=== PATIENT | female | born 1970 | race Caucasian/White ===

== ENCOUNTER 2020-01-02 15:00 | Outpatient (RCR) | payer OTHER, SELFPAY ==
--- NOTE | 2020-01-02 16:02 | MHC.PT.DC ---
[facility] [place] Office [place] Office [place] Office [address]ujo [address] [phone] F: [phone] F: [phone] F: [phone] F: [phone] Physical Therapy Discharge Report Diagnosis: Post traumatic OA of R knee, OA of L knee Date of Surgery: NA Date of Evaluation: 11/09/19 Date of Discharge: 01/02/20 Treatments to Date: 13 Cancellations to Date: 0 No Shows to Date: 0 Discharge Status: Achieved Goals Improved Function Independent with HEP Discharge Summary: Patient sylvia Hackett in HEP. She reports crepitus with some exercises but tolerates program well. She has normal MMT and ROM to about 114 degs on the L and 125 on the R. She has reached a point where no more progress is being made due to limitations of bony alignment and lack of cartilage. She has a good HEP to continue in the mean time and educated her on the importance of maintaining ROM and strength. DC to HEP at this time. Electronically signed by: Patricia Lopez PT Please sign and return to therapist. Thank you for your referral.
== END 2020-01-02 16:03 | disposition home or self-care (01) ==
LOC: HO.PTCHIC 15:00
PROVIDERS: Visit Provider Orthopaedic Surgery
DX: M17.31 Unilateral post-traumatic osteoarthritis, right knee (principal); M17.12 Unilateral primary osteoarthritis, left knee
CPT/HCPCS: 97110

== ENCOUNTER → 2020-01-23 12:32 | Outpatient (BNVA) | payer OTHER, SELFPAY | PROVIDERS: Visit Provider Orthopaedic Surgery | DX: Z76.89 Persons encountering health services in other specified circumstances (principal) ==

== ENCOUNTER 2020-02-06 15:00 | Outpatient (REF) | payer OTHER, SELFPAY ==
--- NOTE | 2020-02-06 15:01 | XR_ITS ---
EXAMINATION: BILATERAL KNEE X-RAY CLINICAL INFORMATION: Bilateral knee pain COMPARISON: Previous x-ray August 2018 TECHNIQUE: 3 views of each knee FINDINGS: Right: There is mild medial subluxation of the distal femur with respect to the proximal tibia measuring 7 mm. This is unchanged. Bone alignment is otherwise normal. No fracture or dislocation is seen. There is arthritis at the medial femoral tibial and patellofemoral joints with joint space narrowing and osteophyte formation. There are 2 lucencies seen on the lateral view in the tibial metaphysis questionable for postsurgical change. There is a small joint effusion. Left: Bone alignment is normal. No fracture or dislocation. There is arthritis at the patellofemoral and femoral tibial joints with joint space narrowing and osteophyte formation. There is a small joint effusion. XR/XR knee RT 2V IMPRESSION: Bilateral arthritis, right greater than left.
--- NOTE | 2020-02-06 15:01 | XR_ITS ---
EXAMINATION: BILATERAL KNEE X-RAY CLINICAL INFORMATION: Bilateral knee pain COMPARISON: Previous x-ray August 2018 TECHNIQUE: 3 views of each knee FINDINGS: Right: There is mild medial subluxation of the distal femur with respect to the proximal tibia measuring 7 mm. This is unchanged. Bone alignment is otherwise normal. No fracture or dislocation is seen. There is arthritis at the medial femoral tibial and patellofemoral joints with joint space narrowing and osteophyte formation. There are 2 lucencies seen on the lateral view in the tibial metaphysis questionable for postsurgical change. There is a small joint effusion. Left: Bone alignment is normal. No fracture or dislocation. There is arthritis at the patellofemoral and femoral tibial joints with joint space narrowing and osteophyte formation. There is a small joint effusion. XR/XR knee standing BI IMPRESSION: Bilateral arthritis, right greater than left.
--- NOTE | 2020-02-06 15:01 | XR_ITS ---
EXAMINATION: BILATERAL KNEE X-RAY CLINICAL INFORMATION: Bilateral knee pain COMPARISON: Previous x-ray August 2018 TECHNIQUE: 3 views of each knee FINDINGS: Right: There is mild medial subluxation of the distal femur with respect to the proximal tibia measuring 7 mm. This is unchanged. Bone alignment is otherwise normal. No fracture or dislocation is seen. There is arthritis at the medial femoral tibial and patellofemoral joints with joint space narrowing and osteophyte formation. There are 2 lucencies seen on the lateral view in the tibial metaphysis questionable for postsurgical change. There is a small joint effusion. Left: Bone alignment is normal. No fracture or dislocation. There is arthritis at the patellofemoral and femoral tibial joints with joint space narrowing and osteophyte formation. There is a small joint effusion. XR/XR knee LT 2V IMPRESSION: Bilateral arthritis, right greater than left.
[2020-02-06 17:07] LABS: MANUAL DIFF FLAG NO
[2020-02-06 17:21] LABS: Basophils Absolute Auto 0.1 X10*3/uL (0.0-0.2); Basophils Percent Auto 1.1 % (0-2); Eosinophils Absolute Auto 0.1 X10*3/uL (0.0-0.4); Hematocrit 35.6 % (37-47); Hemoglobin 11.3 g/dl (12.0-16.0); Imm Gran Abs Auto 0.01 X10*3/uL (0.00-0.03); Imm Gran Pct Auto 0.2 % (0.0-0.4); Lymphocytes Absolute Auto 1.4 X10*3/uL (1.2-4.9); Lymphocytes Percent Auto 31.4 % (20-40); Mean Corpuscular HGB Conc 31.7 g/dl (31.0-35.0); Mean Corpuscular Hemoglobin 28.8 pg (27.0-33.0); Mean Corpuscular Volume 90.8 fL (80-98); Monocytes Absolute Auto 0.3 X10*3/uL (0.1-1.2); Monocytes Percent Auto 7.4 % (2-11); Neutrophils Absolute Auto 2.7 X10*3/uL (2.0-8.3); Neutrophils Percent Auto 57.9 % (45-73); Platelet Count 176 X10*3/uL (160-400); Red Blood Count 3.92 X10*6/uL (4.20-5.50); Red Cell Distribution Width 13.2 % (11.0-16.0); White Blood Count 4.6 X10*3/uL (4.8-10.8)
[2020-02-06 18:36] LABS: Anion Gap 11 (12-20); Blood Urea Nitrogen 20 mg/dL (9-16); Calcium 8.2 mg/dL (8.4-10.2); Carbon Dioxide 28 mmol/L (22-29); Chloride 103 mmol/L (96-108); Estimated Glomerular Filt Rate > 60; Glucose Random 85 mg/dL (60-115); Potassium 4.2 mmol/l (3.3-5.1); Sodium 138 mmol/L (135-145)
== END 2020-02-06 15:01 | disposition home or self-care (01) ==
LOC: HO.HOSX 15:00
PROVIDERS: PCP Physician Assistant; Visit Provider Orthopaedic Surgery
DX: Z01.812 Encounter for preprocedural laboratory examination (principal); M25.562 Pain in left knee; M25.561 Pain in right knee
CPT/HCPCS: 36415; 73560; 73565; 80048; 85025

== ENCOUNTER → 2020-02-07 13:46 | Outpatient (REF) | payer OTHER, SELFPAY ==
--- NOTE | 2020-02-07 13:51 | ECG_ITS ---
Test Reason : PREOP SOB Blood Pressure : / mmHG Vent. Rate : 073 BPM Atrial Rate : 073 BPM P-R Int : 148 ms QRS Dur : 082 ms QT Int : 390 ms P-R-T Axes : 048 052 042 degrees QTc Int : 429 ms Normal sinus rhythm Normal ECG When compared with ECG of 28-MAR-2007 23:29, No significant change was found Referred By: Dilcia Instrleroy Electronically Signed By:Colten Carl
== END ==
LOC: HO.CARD 13:46
PROVIDERS: PCP Physician Assistant; Visit Provider Orthopaedic Surgery
DX: Z01.810 Encounter for preprocedural cardiovascular examination (principal)
CPT/HCPCS: 93005

== ENCOUNTER 2020-03-10 10:33 | Outpatient (REF) | payer OTHER, SELFPAY ==
[2020-03-10 12:13] LABS: Influenza A PCR NEGATIVE (Negative); Influenza B PCR NEGATIVE (Negative); Resp Syncy Virus RNA Qual PCR NEGATIVE (Negative); SARS COV2 PCR INHOUSE NEGATIVE (Negative)
== END 2020-03-10 10:34 | disposition home or self-care (01) ==
LOC: HO.LAB 10:33
PROVIDERS: Visit Provider Nurse Practitioner Family
DX: Z20.822 Contact with and (suspected) exposure to COVID-19 (principal); R06.00 Dyspnea, unspecified
CPT/HCPCS: 0241U; 36415

== ENCOUNTER 2020-03-10 10:34 | Outpatient (REF) | payer OTHER, SELFPAY ==
--- NOTE | 2020-03-10 10:38 | XR_ITS ---
EXAMINATION: XR CHEST CLINICAL INFORMATION: Covid 19. COMPARISON: None TECHNIQUE: 2 views of the chest were obtained. FINDINGS: No significant abnormality is noted involving the heart, lungs, mediastinum, bony thorax or soft tissues. XR/XR chest 2V IMPRESSION: Unremarkable examination.
== END 2020-03-10 10:35 | disposition home or self-care (01) ==
LOC: HO.HMGCX 10:34
PROVIDERS: PCP Physician Assistant; Visit Provider Nurse Practitioner Family
DX: U07.1 COVID-19 (principal); R06.00 Dyspnea, unspecified
CPT/HCPCS: 71046

== ENCOUNTER → 2020-06-18 13:18 | Outpatient (BNVA) | payer OTHER, SELFPAY | PROVIDERS: PCP Physician Assistant; Visit Provider Physician Assistant ==

== ENCOUNTER 2020-06-23 06:09 | Inpatient (IN) | payer OTHER, SELFPAY ==
[2020-06-20 11:56] VITALS: BMI 37.7
--- NOTE | 2020-06-20 12:12 | HO.ANESPROP2 ---
Documented by User: Cassi Palaciosney 06/20/20 13:21 HPI - Anesthesia Eval Consult details Narrative: 50yo F for Right Knee Replacement Total PCP cleared Pending: Labs T&S EKG Recent Pulmonology appt: chronic cough and seasonal allergies, meds changed, re-eval for ANDREA PMFSH Active Problems Active Problems: All Active Problems (Updated 06/20/20 @ 12:10 by Lisha Mercer) Dyspnea due to COVID-19 (Acute) Unilateral primary osteoarthritis, left knee (Acute) Post-traumatic osteoarthritis of right knee (Acute) Past Medical History Medical History Arthritis Asthma Cervical spondylosis without myelopathy Degenerative joint disease Depression GERD (gastroesophageal reflux disease) History of anxiety History of COVID-19 History of fatty infiltration of liver History of panic disorder Hx of irritable bowel syndrome PND (post-nasal drip) Post-traumatic osteoarthritis of right knee Sleep apnea Unilateral primary osteoarthritis, left knee Family History Family history of problems with anesthesia: No Surgical History Surgical History H/O colonoscopy History of arthroscopy of right knee History of esophagogastroduodenoscopy (EGD) History of lumbar laminectomy Hx of arthroscopic knee surgery Hx of tonsillectomy History of Problems with Anesthesia: No Social History Social History Are you a primary healthcare administration intern to a significant other at home: No Do you presently have visiting nurse or other home services: No Alcohol intake: current Alcohol intake frequency: holidays/special occasions only Smoking Status: Never smoker Use of substances other than those prescribed or required for medical reasons: No Have you been hit, kicked, punched, or otherwise hurt by someone within the past year? If so, by whom?: No Advance Directives: No Advance Directives Information Provided: No Advance Directives on File: No Recently lost weight without trying: No Current occupational status: employed Current occupation: Right Handed Narrative Narrative: No recent illness No CP/SOB >4 mets with walking, housework Meds Allergies Allergy/AdvReac Type Severity Reaction Status Date / Time No Known Allergies Allergy Verified 06/18/20 13:29 Home Medications Medication Instructions Recorded Confirmed Last Taken Type diclofenac potassium 50 mg tablet 50 mg PO BID PRN 01/22/20 06/20/20 Unknown History pantoprazole 40 mg tablet,delayed 40 mg PO DAILY 01/22/20 06/20/20 Unknown History release azelastine 137 mcg (0.1 %) nasal 2 spray INTRANASAL BID 03/10/20 06/20/20 Unknown History spray aerosol loratadine 10 mg tablet 10 mg PO DAILY 03/10/20 06/20/20 Unknown History albuterol sulfate [Ventolin HFA] 2 puff INHALATION Q4-6H PRN 06/19/20 06/20/20 Unknown History budesonide-formoterol [Symbicort] 2 puff INHALATION BID 06/19/20 06/23/20 06/23/20 05:00 History fluticasone propionate [Flonase] 1 spray INTRANASAL BID 06/19/20 06/20/20 Unknown History ipratropium-albuterol [Combivent 2 puff INHALATION TID PRN 06/19/20 06/20/20 Unknown History Respimat] montelukast 10 mg PO BEDTIME 06/20/20 06/20/20 Unknown History Exam Exam Date and Time: June 20, 2020 1212 Pertinent Lab Results Pertinent Lab Results: Outside provider labs 06/05/20 CBC: WNL LYTES, BUN, Creat: WNL Narrative Narrative: EKG 01/2020 Vent. Rate : 073 BPM Atrial Rate : 073 BPM P-R Int : 148 ms QRS Dur : 082 ms QT Int : 390 ms P-R-T Axes : 048 052 042 degrees QTc Int : 429 ms Normal sinus rhythm Normal ECG When compared with ECG of 28-MAR-2007 23:29, No significant change was found Repeat EKG 05/2020 done with outside provider, no change noted CXR 05/2020 No acute pulmonary disease Airway TM Dist: >3cm Neck ROM: Full Loose/Missing/Broken Teeth: No (LL molar crowned) Heart: RRR Lungs: CTAB Assessment and Plan Assessment Anesthesia Assessment: Anesthesia Plan Discussed and PAT Visit Documented by User: Lorelei Larios 06/23/20 08:08 [facility] Past Medical History Medical History Arthritis Asthma Cervical spondylosis without myelopathy Degenerative joint disease Depression GERD (gastroesophageal reflux disease) History of anxiety History of COVID-19 History of fatty infiltration of liver History of panic disorder Hx of irritable bowel syndrome PND (post-nasal drip) Post-traumatic osteoarthritis of right knee Sleep apnea Unilateral primary osteoarthritis, left knee Surgical History Surgical History H/O colonoscopy History of arthroscopy of right knee History of esophagogastroduodenoscopy (EGD) History of lumbar laminectomy Hx of arthroscopic knee surgery Hx of tonsillectomy Social History Social History Are you a primary healthcare administration intern to a significant other at home: No Do you presently have visiting nurse or other home services: No Alcohol intake: current Alcohol intake frequency: holidays/special occasions only Smoking Status: Never smoker Use of substances other than those prescribed or required for medical reasons: No Have you been hit, kicked, punched, or otherwise hurt by someone within the past year? If so, by whom?: No Advance Directives: No Advance Directives Information Provided: No Advance Directives on File: No Recently lost weight without trying: No Current occupational status: employed Current occupation: Right Handed Meds Allergies Allergy/AdvReac Type Severity Reaction Status Date / Time No Known Allergies Allergy Verified 06/18/20 13:29 Home Medications Medication Instructions Recorded Confirmed Last Taken Type diclofenac potassium 50 mg tablet 50 mg PO BID PRN 01/22/20 06/20/20 Unknown History pantoprazole 40 mg tablet,delayed 40 mg PO DAILY 01/22/20 06/20/20 Unknown History release azelastine 137 mcg (0.1 %) nasal 2 spray INTRANASAL BID 03/10/20 06/20/20 Unknown History spray aerosol loratadine 10 mg tablet 10 mg PO DAILY 03/10/20 06/20/20 Unknown History albuterol sulfate [Ventolin HFA] 2 puff INHALATION Q4-6H PRN 06/19/20 06/20/20 Unknown History budesonide-formoterol [Symbicort] 2 puff INHALATION BID 06/19/20 06/23/20 06/23/20 05:00 History fluticasone propionate [Flonase] 1 spray INTRANASAL BID 06/19/20 06/20/20 Unknown History ipratropium-albuterol [Combivent 2 puff INHALATION TID PRN 06/19/20 06/20/20 Unknown History Respimat] montelukast 10 mg PO BEDTIME 06/20/20 06/20/20 Unknown History Assessment and Plan Assessment Anesthesia Assessment: Anesthesia Plan Discussed and Chart Reviewed Final Anesthetic Review NPO: Yes ASA Class: III Final Preanesthetic Review: No Changes in Pt Med Stat, Meds/Allgs Chart Reviewed, Consent Obtained/Reviewed and Anes Risks/Benef Reviewed Patient Risk: Intermediate Procedure Risk: Intermediate Assessment/Block/Sedation in SS: Assess/Block/Sedation-SS Anesthetic Plan Anesthetic Plan: Spinal Disposition: Standard PACU
[2020-06-20 12:14] VITALS: BP 116/88; PULSE 74; RESP 18; O2SAT 97
[2020-06-20 14:52] LABS: MRSA Nasal PCR NEGATIVE (Negative); SA Nasal PCR NEGATIVE (Negative)
[2020-06-23] VITALS (15 sets, daily range): BP systolic 105–128; BP diastolic 57–81; PULSE 73–97; RESP 15–20; TEMP 36.3–37.1; O2SAT 93–100
--- NOTE | ~2020-06-23 | XR_ITS ---
EXAMINATION: XR KNEE, RIGHT CLINICAL INFORMATION: Postoperative COMPARISON: 02/06/2020 TECHNIQUE: AP and lateral views of the right knee. FINDINGS: Prosthetic components of the right total knee arthroplasty are appropriately aligned. No periprosthetic fracture. Gas from recent surgery is present in the joint and surrounding soft tissues. A joint effusion is present. Skin bia are present anteriorly. XR/XR knee RT 2V IMPRESSION: Appropriate alignment of the right total knee arthroplasty.
[2020-06-23] MEDS: Gabapentin 600 MG TABLET PO (06:26)
[2020-06-23 07:05] LABS: COVID-19 Test Negative (Negative)
[2020-06-23] MEDS: Lactated Ringers 1,000 ML 100 ML IVCONT ×3 (07:07→22:00)
--- NOTE | 2020-06-23 07:24 | MHC.SHP ---
Pre-Procedural Eval Section A The patient is an INPATIENT: No Changes since office visit: No Cold of Flu in the past 2 weeks, No New Medical Problems, No Changes in Medication and No Patient answered all questions The History & Physical has been completed within 30 days and I have reviewed it.: Yes Section B Chief Complaint: S/p total right knee arthroplasty Allergies: Allergies Allergy/AdvReac Type Severity Reaction Status Date / Time No Known Allergies Allergy Verified 06/18/20 13:29 Plan I have reviewed the history and physical and performed a pertinent physical examination on my patient. No changes have occurred unless specified.
[2020-06-23] MEDS: oxyCODONE HCl Immed Release 5 MG TABLET PO (09:50)
[2020-06-23] MEDS: Acetaminophen 325 MG TABLET 650 MG PO ×3 (09:51→23:50)
[2020-06-23] MEDS: Ketorolac Tromethamine 15 MG/ML VIAL IVPUSH ×3 (12:42→22:50)
--- NOTE | 2020-06-23 12:43 | PM.IMCN ---
History of Present Illness Data of Consult Service Date: 06/23/20 Primary Care Provider: CLEOPATRA Looney HPI Reason for consult: asthma 50F pmh asthma, presented for elective right TKA for osteoarthritis. patient has been having ongoing bilateral knee pain not ammenable to medical therapy. underwent right TKA 06/23/20. patient is feeling well postoperatively, no sob, no chest pain, some mild pain. consult requested for management of comorbidy of asthma. Review of Systems Review of Systems: Constitutional: Denies fever, denies Chills Eyes: denies blurry vision ENT: denies sore throat CVS: denies chest pain Respiratory: Denies dyspnea GI: no abdominal pain : denies dysuria MSK: denies neck pain Skin: denies rash Neuro: denies specific motor weakness Psych: denies suicidal ideation Endocrine: denies heat/cold intoleratnce Hematologic: denies easy bleeding Allergy: denies hives PMFSH Medical History Arthritis Asthma Cervical spondylosis without myelopathy Degenerative joint disease Depression Dyspnea due to COVID-19 GERD (gastroesophageal reflux disease) History of anxiety History of COVID-19 History of fatty infiltration of liver History of panic disorder Hx of irritable bowel syndrome PND (post-nasal drip) Post-traumatic osteoarthritis of right knee Sleep apnea Unilateral primary osteoarthritis, left knee Family history: reviewed and not pertinent Surgical History H/O colonoscopy History of arthroscopy of right knee History of esophagogastroduodenoscopy (EGD) History of lumbar laminectomy Hx of arthroscopic knee surgery Hx of tonsillectomy Social History Are you a primary intensive care unit nurse to a significant other at home: No Do you presently have visiting nurse or other home services: No Alcohol intake: current Alcohol intake frequency: holidays/special occasions only Smoking Status: Never smoker Use of substances other than those prescribed or required for medical reasons: No Have you been hit, kicked, punched, or otherwise hurt by someone within the past year? If so, by whom?: No Are you DNR?: No Advance Directives: No Advance Directives Information Provided: No Advance Directives on File: No Recently lost weight without trying: No Eating poorly because of decreased appetite: No Nutrition Risks: No Nutritional Risk Patient : No FDLMP: 06/13/20 : No Poor oral hygiene: No Current occupational status: employed Current occupation: Right Handed Meds Allergies Allergy/AdvReac Type Severity Reaction Status Date / Time No Known Allergies Allergy Verified 06/18/20 13:29 Active Medications: Current Medications Generic Name Dose Route Start Last Admin Trade Name Freq PRN Reason Stop Dose Admin Acetaminophen 650 mg 06/23/20 11:02 Acetaminophen 325 Mg Tablet PO Q6H TITA Albuterol/Ipratropium 3 ml 06/23/20 11:38 Albuterol/Iprat 2.5/0.5mg 3 Ml Ampul.Neb INHALE TID PRN Shortness Of Breath Aspirin 325 mg 06/24/20 22:00 Aspirin 325 Mg Tablet PO BID TITA Fluticasone/Vilanterol 1 puff 06/24/20 08:00 Fluticasone/Vilanterol 200/25 Blst.W.Dev INHALE RDAILY [facility] Lactated Ringer's 1,000 mls @ 100 mls/hr 06/23/20 06:15 06/23/20 07:07 Lr IVCONT 100 mls/hr .Q10H [facility] Administration Cefazolin Sodium/Dextrose 2 gm in 50 mls @ 100 mls/hr 06/23/20 13:35 Ancef IV 06/23/20 14:04 POSTOP ONE Ketorolac Tromethamine 15 mg 06/23/20 11:02 Ketorolac Tromethamine 15 Mg/Ml Vial IVPUSH Q6H [facility] Montelukast Sodium 10 mg 06/23/20 21:00 Montelukast Sodium 10 Mg Tablet PO BEDTIME [facility] Morphine Sulfate 2 mg 06/23/20 11:02 Morphine Sulfate 2 Mg/Ml Cartridge IVPUSH Q2H PRN Pain, Severe (Pain Scale 7-10) Naloxone HCl 0.2 mg 06/23/20 11:02 Naloxone Hcl 0.4 Mg/Ml Vial IVPUSH Q2M PRN Excessive sedation or RR < 8 Omeprazole 20 mg 06/24/20 06:30 Omeprazole 20 Mg Capsule. PO DAILY@0630 [facility] Ondansetron HCl 4 mg 06/23/20 11:02 Ondansetron Hcl 4 Mg/2 Ml Vial IVPUSH Q8H PRN Nausea and Vomiting Oxycodone HCl 10 mg 06/23/20 11:02 Oxycodone Hcl Immed Release 5 Mg Tablet PO Q6H [facility] Sodium Chloride 3 ml 06/23/20 16:00 0.9 % Sodium Chloride Flush 3 Ml Syringe IVFLUSH QSHIFT [facility] Home Medications Medication Instructions Recorded Confirmed Last Taken Type diclofenac potassium 50 mg tablet 50 mg PO BID PRN 01/22/20 06/20/20 Unknown History pantoprazole 40 mg tablet,delayed 40 mg PO DAILY 01/22/20 06/20/20 Unknown History release azelastine 137 mcg (0.1 %) nasal 2 spray INTRANASAL BID 03/10/20 06/20/20 Unknown History spray aerosol loratadine 10 mg tablet 10 mg PO DAILY 03/10/20 06/20/20 Unknown History albuterol sulfate [Ventolin HFA] 2 puff INHALATION Q4-6H PRN 06/19/20 06/20/20 Unknown History budesonide-formoterol [Symbicort] 2 puff INHALATION BID 06/19/20 06/23/20 06/23/20 05:00 History fluticasone propionate [Flonase] 1 spray INTRANASAL BID 06/19/20 06/20/20 Unknown History ipratropium-albuterol [Combivent 2 puff INHALATION TID PRN 06/19/20 06/20/20 Unknown History Respimat] montelukast 10 mg PO BEDTIME 06/20/20 06/20/20 Unknown History Physical Exam Vital Signs and Narrative: Vital Signs: Last Vital Signs Temp 97.8 F 06/23/20 09:29 Pulse 82 06/23/20 11:30 Resp 17 06/23/20 11:30 BP 113/64 06/23/20 11:30 Pulse Ox 97 06/23/20 11:30 Body Mass Index 37.7 General: no acute distress HEENT: atraumatic Neck: normal to visual inspection CVS: S1, S2, RRR Resp: CTA bilateral Chest: non tender GI: soft, non tender, non distended : no CVA tenderness Skin: no rashes Extremities: no edema Neuro: Oriented X3, grossly intact Psych: cooperative Results Labs Labs: Laboratory Results - last 24 hr 06/23/20 06:11 COVID-19 ([facility]) Negative COVID-19 Clin Com See Note Assessment and Plan (1) Asthma: Problem details: stable on current inhalers per PCP note Status: Acute 50F presented for elective right tKA osteoarthritis s/p right tka management per ortho asthma stable uri gutierrez
[2020-06-23] MEDS: ceFAZolin Sodium/Dextrose,Iso 2 GM/50 ML PIGGYBACK IV (13:56)
[2020-06-23] MEDS: oxyCODONE HCl Immed Release 5 MG TABLET 10 MG PO ×2 (17:20→23:50)
[2020-06-23] MEDS: 0.9 % Sodium Chloride Flush 3 ML SYRINGE IVFLUSH (20:52)
[2020-06-23] MEDS: Montelukast Sodium 10 MG TABLET PO (20:52)
[2020-06-24] VITALS (10 sets, daily range): BP systolic 100–135; BP diastolic 60–72; PULSE 64–88; RESP 15–20; TEMP 36.2–36.6; O2SAT 96–100
[2020-06-24 05:45] LABS: MANUAL DIFF FLAG NO
[2020-06-24 05:51] LABS: Basophils Percent Auto 0.2 % (0-2); Eosinophils Percent Auto 0.1 % (0-4); Hematocrit 30.2 % (37-47); Hemoglobin 9.6 g/dl (12.0-16.0); Imm Gran Abs Auto 0.03 X10*3/uL (0.00-0.03); Imm Gran Pct Auto 0.3 % (0.0-0.4); Lymphocytes Absolute Auto 1.7 X10*3/uL (1.2-4.9); Lymphocytes Percent Auto 19.9 % (20-40); Mean Corpuscular HGB Conc 31.8 g/dl (31.0-35.0); Mean Corpuscular Hemoglobin 28.8 pg (27.0-33.0); Mean Corpuscular Volume 90.7 fL (80-98); Mean Platelet Volume 11.1 fL (9.4-12.3); Monocytes Absolute Auto 0.8 X10*3/uL (0.1-1.2); Neutrophils Percent Auto 70.5 % (45-73); Platelet Count 189 X10*3/uL (160-400); Red Blood Count 3.33 X10*6/uL (4.20-5.50); Red Cell Distribution Width 12.8 % (11.0-16.0); White Blood Count 8.6 X10*3/uL (4.8-10.8)
[2020-06-24] MEDS: Acetaminophen 325 MG TABLET 650 MG PO ×3 (06:00→19:15)
[2020-06-24] MEDS: oxyCODONE HCl Immed Release 5 MG TABLET 10 MG PO ×3 (06:01→19:16)
[2020-06-24] MEDS: Omeprazole 20 MG CAPSULE.DR PO (06:01)
[2020-06-24] MEDS: Ketorolac Tromethamine 15 MG/ML VIAL IVPUSH ×3 (06:01→19:15)
[2020-06-24 06:32] LABS: Anion Gap 11 (12-20); Blood Urea Nitrogen 14 mg/dL (9-16); Calcium 8.6 mg/dL (8.4-10.2); Carbon Dioxide 26 mmol/L (22-29); Chloride 107 mmol/L (96-108); Creatinine Clr Calc Pharmacy 101.2; Estimated Glomerular Filt Rate > 60; Glucose Fasting 117 mg/dL (60-99); Potassium 4.7 mmol/L (3.3-5.1); Sodium 139 mmol/L (135-145)
[2020-06-24] MEDS: Lactated Ringers 1,000 ML 100 ML IVCONT ×2 (07:33→20:45)
--- NOTE | 2020-06-24 07:34 | PM.PNORT ---
Subjective Subjective Date of Service: 06/24/20 Interval history: POD1 s/p RTKA patient resting comfortably in bed. No overnight events. Pain is well managed. Physical Exam Vital Signs: Vital Signs: Last Vital Signs Temp 97.2 F 06/24/20 07:00 Pulse 64 06/24/20 07:00 Resp 17 06/24/20 07:00 BP 135/65 06/24/20 07:00 Pulse Ox 98 06/24/20 07:00 Body Mass Index 37.7 Const: General: cooperative, healthy appearing and no acute distress Resp: Effort & Inspection: normal respiratory effort and able to speak in complete sentences Cardio: Rate: regular rate Peripheral pulses: Peripheral pulses 2+ throughout GI: Palpation (GI): Soft to palpation Skin: Lesions: no lesions Rashes: no rashes Extrem: Other: Rigth knee aquacel dressing clean, dry, and intact. No ecchymosis, redness, or drainage. NVI. Progress Note: A&P Assessment and plan (1) S/P total knee arthroplasty: Status: Acute Assessment and Plan: Continue pain mgmnt Begin ASA for dvt ppx Continue PT for RTKA Dispo planning-Pending Continue PT, pain mgmnt Fall Risk Details Current Medications: Current Medications Generic Name Dose Route Start Last Admin Trade Name Freq PRN Reason Stop Dose Admin Acetaminophen 650 mg 06/23/20 11:02 06/24/20 06:00 Acetaminophen 325 Mg Tablet PO 650 mg Q6H TITA Administration Albuterol/Ipratropium 3 ml 06/23/20 11:38 Albuterol/Iprat 2.5/0.5mg 3 Ml Ampul.Neb INHALE TID PRN Shortness Of Breath Aspirin 325 mg 06/24/20 22:00 Aspirin 325 Mg Tablet PO BID TITA Fluticasone/Vilanterol 1 puff 06/24/20 08:00 Fluticasone/Vilanterol 200/25 Blst.W.Dev INHALE RDAILY [facility] Lactated Ringer's 1,000 mls @ 100 mls/hr 06/23/20 06:15 06/23/20 22:00 Lr IVCONT 100 mls/hr .Q10H [facility] Administration Ketorolac Tromethamine 15 mg 06/23/20 11:02 06/24/20 06:01 Ketorolac Tromethamine 15 Mg/Ml Vial IVPUSH 15 mg Q6H [facility] Administration Montelukast Sodium 10 mg 06/23/20 21:00 06/23/20 20:52 Montelukast Sodium 10 Mg Tablet PO 10 mg BEDTIME [facility] Administration Morphine Sulfate 2 mg 06/23/20 11:02 Morphine Sulfate 2 Mg/Ml Cartridge IVPUSH Q2H PRN Pain, Severe (Pain Scale 7-10) Naloxone HCl 0.2 mg 06/23/20 11:02 Naloxone Hcl 0.4 Mg/Ml Vial IVPUSH Q2M PRN Excessive sedation or RR < 8 Omeprazole 20 mg 06/24/20 06:30 06/24/20 06:01 Omeprazole 20 Mg Capsule.Dr PO 20 mg DAILY@0630 [facility] Administration Ondansetron HCl 4 mg 06/23/20 11:02 Ondansetron Hcl 4 Mg/2 Ml Vial IVPUSH Q8H PRN Nausea and Vomiting Oxycodone HCl 10 mg 06/23/20 11:02 06/24/20 06:01 Oxycodone Hcl Immed Release 5 Mg Tablet PO 10 mg Q6H [facility] Administration Sodium Chloride 3 ml 06/23/20 16:00 06/23/20 20:52 0.9 % Sodium Chloride Flush 3 Ml Syringe IVFLUSH 3 ml QSHIFT TIAT Administration Time Spent With Patient Time: Total time spent is greater than 50% in coordination of care (as documented) at patient's floor/unit and/or counseling patient: Time with patient: less than 15 minutes
[2020-06-24] MEDS: Fluticasone/Vilanterol 200/25 BLST.W.DEV 1 PUFF INHALE (07:55)
[2020-06-24] MEDS: Aspirin 325 MG TABLET PO ×2 (08:45→20:44)
--- NOTE | 2020-06-24 12:51 | MHC.CM.PN ---
PATIENT IS INDEPENDENT WITH HER ADLS. SHE IS AWARE THAT DISCHARGE IS PLANNED FOR TOMORROW (06/25/20) SHE IS AGREEABLE TO [facility] FOR HOME PHYSICAL THERAPY. REFERRAL PLACED. PATIENT WILL BE STAYING AT [address] [place] [address] [place] HER VERIFIED HOME ADDRESS. THERE IS A WHEELED WALKER IN THE HOME.
--- NOTE | 2020-06-24 12:55 | HO.PM.IMPN ---
Subjective Subjective Date of Service: 06/24/20 Interval History: no sob Cardiovascular Cardiovascular: Reports no additional cardiovascular complaints Gastrointestinal Gastrointestinal: Reports no additional gastrointestinal complaints Physical Exam Vital Signs: Vital Signs: Last Vital Signs Temp 97.4 F 06/24/20 11:00 Pulse 73 06/24/20 11:00 Resp 16 06/24/20 11:00 BP 115/63 06/24/20 11:00 Pulse Ox 100 06/24/20 11:00 Body Mass Index 37.7 General: AO X 3, no acute distress Resp: CTA bilateral CVS: S1,S2,RRR GI: soft, non tender, non distended Neuro: motor grossly intact Psych: appropriate affect Objective Data Current Medications Generic Name Dose Route Start Last Admin Trade Name Freq PRN Reason Stop Dose Admin Acetaminophen 650 mg 06/23/20 11:02 06/24/20 06:00 Acetaminophen 325 Mg Tablet PO 650 mg Q6H TITA Administration Albuterol/Ipratropium 3 ml 06/23/20 11:38 Albuterol/Iprat 2.5/0.5mg 3 Ml Ampul.Neb INHALE TID PRN Shortness Of Breath Aspirin 325 mg 06/24/20 22:00 Aspirin 325 Mg Tablet PO BID TITA Aspirin 325 mg 06/24/20 09:00 06/24/20 08:45 Aspirin 325 Mg Tablet PO 325 mg BID TITA Administration Fluticasone/Vilanterol 1 puff 06/24/20 08:00 06/24/20 07:55 Fluticasone/Vilanterol 200/25 Blst.W.Dev INHALE 1 puff RDAILY TITA Administration Lactated Ringer's 1,000 mls @ 100 mls/hr 06/23/20 06:15 06/24/20 07:33 Lr IVCONT 100 mls/hr .Q10H TITA Administration Ketorolac Tromethamine 15 mg 06/23/20 11:02 06/24/20 06:01 Ketorolac Tromethamine 15 Mg/Ml Vial IVPUSH 15 mg Q6H TITA Administration Montelukast Sodium 10 mg 06/23/20 21:00 06/23/20 20:52 Montelukast Sodium 10 Mg Tablet PO 10 mg BEDTIME TITA Administration Morphine Sulfate 2 mg 06/23/20 11:02 Morphine Sulfate 2 Mg/Ml Cartridge IVPUSH Q2H PRN Pain, Severe (Pain Scale 7-10) Naloxone HCl 0.2 mg 06/23/20 11:02 Naloxone Hcl 0.4 Mg/Ml Vial IVPUSH Q2M PRN Excessive sedation or RR < 8 Omeprazole 20 mg 06/24/20 06:30 06/24/20 06:01 Omeprazole 20 Mg Capsule.Dr PO 20 mg DAILY@0630 TITA Administration Ondansetron HCl 4 mg 06/23/20 11:02 Ondansetron Hcl 4 Mg/2 Ml Vial IVPUSH Q8H PRN Nausea and Vomiting Oxycodone HCl 10 mg 06/23/20 11:02 06/24/20 06:01 Oxycodone Hcl Immed Release 5 Mg Tablet PO 10 mg Q6H TITA Administration Sodium Chloride 3 ml 06/23/20 16:00 06/24/20 07:37 0.9 % Sodium Chloride Flush 3 Ml Syringe IVFLUSH Not Given QSHIFT [facility] Labs CBC & Chem 7: 06/24/20 05:30 06/24/20 05:30 Assessment and Plan (1) Asthma: Problem details: stable on current inhalers per PCP note Status: Acute Assessment and Plan: 50F presented for elective right tKA osteoarthritis s/p right tka pod 1 management per ortho asthma stable uri gutierrez GERD prilosec
--- NOTE | 2020-06-24 15:09 | HO.POSTANES ---
Post Anesthesia Evaluation Post Anesthesia Evaluation Vital Signs: Vital Signs Temp Pulse Resp BP Pulse Ox 06/24/20 13:54 73 115/63 100 06/24/20 11:00 97.4 F 73 16 115/63 100 06/24/20 08:09 64 135/65 98 06/24/20 07:00 97.2 F 64 17 135/65 98 Anesthesia: Spinal and Nerve Block Mental Status: Awake Pain Control: Satisfactory Nausea/Vomiting: None Hydration: Adequate Anesthesia-Related Issues: No Anes. Related Issues
[2020-06-24] MEDS: Montelukast Sodium 10 MG TABLET PO (20:44)
[2020-06-25] MEDS: Ketorolac Tromethamine 15 MG/ML VIAL IVPUSH ×2 (00:19→06:32)
[2020-06-25] MEDS: Acetaminophen 325 MG TABLET 650 MG PO ×3 (00:19→10:55)
[2020-06-25] MEDS: oxyCODONE HCl Immed Release 5 MG TABLET 10 MG PO ×3 (00:20→10:56)
[2020-06-25 03:00] VITALS: BP 107/62; PULSE 70; RESP 14; TEMP 36.3; O2SAT 98
[2020-06-25] MEDS: Omeprazole 20 MG CAPSULE.DR PO (05:54)
[2020-06-25] MEDS: Lactated Ringers 1,000 ML 100 ML IVCONT (06:31)
[2020-06-25 07:00] VITALS: BP 96/50; PULSE 73; RESP 16; TEMP 36.4; O2SAT 96
[2020-06-25] MEDS: Aspirin 325 MG TABLET PO (08:24)
[2020-06-25] MEDS: Fluticasone/Vilanterol 200/25 BLST.W.DEV 1 PUFF INHALE (08:28)
[2020-06-25 08:29] VITALS: PULSE 86; O2SAT 100
--- NOTE | 2020-06-25 08:31 | PM.DS ---
DS: Providers Provider Date of Service: 06/25/20 Date of admission: 06/23/20 06:09 Primary care physician: CLEOPATRA Looney Consults: 06/23/20 11:02 Consult to Hospitalist Routine Consulting Provider: Hospitalist Reason For Exam: asthma and medical issues DS: Diagnosis Discharge Diagnosis (1) S/P total knee arthroplasty: Status: Acute Problem details: This is a 50-year-old female who presented to our office for ongoing right knee pain. She was found have osteoarthritis of the right knee. She failed all conservative measures and continued to have difficulty with daily activities therefore she consented to move forward with right total knee arthroplasty. DS: Medications Discharge Medications Home Medications: Home Medications Medication Instructions Recorded Confirmed diclofenac potassium 50 mg tablet 50 mg PO BID PRN 01/22/20 06/20/20 pantoprazole 40 mg tablet,delayed 40 mg PO DAILY 01/22/20 06/20/20 release azelastine 137 mcg (0.1 %) nasal 2 spray INTRANASAL BID 03/10/20 06/20/20 spray aerosol loratadine 10 mg tablet 10 mg PO DAILY 03/10/20 06/20/20 albuterol sulfate [Ventolin HFA] 2 puff INHALATION Q4-6H PRN 06/19/20 06/20/20 budesonide-formoterol [Symbicort] 2 puff INHALATION BID 06/19/20 06/23/20 fluticasone propionate [Flonase] 1 spray INTRANASAL BID 06/19/20 06/20/20 ipratropium-albuterol [Combivent 2 puff INHALATION TID PRN 06/19/20 06/20/20 Respimat] montelukast 10 mg PO BEDTIME 06/20/20 06/20/20 DS: Summary Hospital Course Hospital Course: The patient underwent a successful right total knee arthroplasty, was transferred to PACU and then to the floor to recover. During their stay, their vitals were stable, afebrile at 97.3. Labs were unremarkable, H/H 8.1/25.5. POD 1 she was started on aspirin for DVT ppx, they also received services twice a day. Prior to discharge, their dressing was change, incision clean dry and intact, new Aquacel dressing applied and the plan was to be discharged home with VNA services Time Spent with Patient Time attestation: Total time spent providing and/or coordinating discharge services: Discharge coordination time: Less than 30 minutes Physical Exam Vital Signs: Vital Signs: Last Vital Signs Temp 97.5 F 06/25/20 07:00 Pulse 73 06/25/20 07:00 Resp 16 06/25/20 07:00 BP 96/50 L 06/25/20 07:00 Pulse Ox 96 06/25/20 07:00 Body Mass Index 37.7 Const: General: cooperative, healthy appearing and no acute distress Resp: Effort & Inspection: normal respiratory effort and able to speak in complete sentences Cardio: Rate: regular rate Peripheral pulses: Peripheral pulses 2+ throughout GI: Palpation (GI): Soft to palpation Skin: General skin exam: no rashes or lesions noted Extrem: Other: Right knee incision clean dry and intact. [place] intact. No erythema or joint effusion. Calf supple nontender. Neurovascularly intact. DS: Data Data Completed and Pending Pending studies at discharge: Pending at discharge 06/23/20 08:32 Surgical [PTH] Routine Discharge Plan Discharge Patient Disposition: Home Health Service Discharge Diagnosis: s/p TKA Referrals: Diego RENNER [Outside] - 1 Week Angela Bansal PA-C [Physician Staff Services Manager] - None (07/09/20 1:45 [facility] [place] [facility] Angela Bansal PA-C) Discharge Medications: New aspirin 325 mg Tablet 325 mg PO BID 14 Days Qty: 28 RF: 0 oxycodone 5 mg Tablet 5 mg PO Q6H 7 Days Qty: 28 RF: 0 acetaminophen 325 mg Tablet 650 mg PO Q6H 30 Days Qty: 240 RF: 0 Continued albuterol sulfate [Ventolin HFA] 90 mcg/actuation Hfa Aerosol Inhaler 2 puff INHALATION Q4-6H PRN (Reason: Shortness Of Breath) RF: 0 fluticasone propionate 50 mcg/actuation [place],Suspension 1 spray INTRANASAL BID RF: 0 budesonide-formoterol [Symbicort] 160-4.5 mcg/actuation Hfa Aerosol Inhaler 2 puff INHALATION BID RF: 0 Combivent Respimat 20-100 mcg/actuation Mist 2 puff INHALATION TID PRN (Reason: Shortness Of Breath) RF: 0 montelukast 10 mg Tablet 10 mg PO BEDTIME RF: 0 pantoprazole 40 mg tablet,delayed release (DR/EC) 40 mg PO DAILY RF: 0 Discontinued diclofenac potassium 50 mg tablet 50 mg PO BID PRN (Reason: Pain) RF: 0 Discharge Orders: Discharge Order (Routine); Ordered 06/25/20 Ordered By: Angela Bansal Diet: regular diet Activity on Discharge: Use cane or walker Stand Alone Forms: Patient Portal Discharge page Care Plan Goals: Restore function of joint Health Concerns: none Plan of Treatment: Physical Therapy Pain management DVT prophylaxis Assessment: Physical Therapy for ROM 0-120, quad strength, gait training . Use walker for ambulation Limit stair climbing, No shower, No tub bath, No driving Continue ASA for anticoagulant Keep Aquacel dressing clean, dry and intact. Follow up with orthopedics in 2 weeks Discharge Date/Time: 06/25/20 12:51
[2020-06-25 08:52] LABS: Hematocrit 25.5 % (37-47); Hemoglobin 8.1 g/dl (12.0-16.0)
[2020-06-25 09:09] VITALS: BP 96/50; PULSE 73; O2SAT 96
[2020-06-25 09:22] VITALS: BP 98/60
--- NOTE | 2020-06-25 11:31 | HO.PM.IMPN ---
Subjective Subjective Date of Service: 06/25/20 Interval History: the patient was seen and evaluated this morning Walking in the [place] with physical therapist using walker, feels comfortable overall with no reported dizziness or lightheadedness of Denies any fever, chills or shortness of breath No reported other overnight events. Systemic review: No fever, chills or weakness No chest pain, palpitation No shortness of breath or coughing No abdominal pain, nausea or vomiting Physical Exam Vital Signs: Vital Signs: Last Vital Signs Temp 97.5 F 06/25/20 07:00 Pulse 73 06/25/20 09:09 Resp 16 06/25/20 07:00 BP 98/60 06/25/20 09:22 Pulse Ox 96 06/25/20 09:09 Body Mass Index 37.7 Const: Other: Constitutional : Alert, oriented, not in distress Neck : Normal inspection, Supple Cardiovascular : No JVP, no lower extremity edema Respiratory : Chest wall moving bilaterally, not in distress Gastrointestinal: soft, lax, Normal bowel sounds, Non tender Skin : Warm/Dry, No rash Neurological : Alert & oriented x3, No focal deficit Objective Data Current Medications Generic Name Dose Route Start Last Admin Trade Name Freq PRN Reason Stop Dose Admin Acetaminophen 650 mg 06/23/20 11:02 06/25/20 10:55 Acetaminophen 325 Mg Tablet PO 650 mg Q6H TITA Administration Albuterol/Ipratropium 3 ml 06/23/20 11:38 Albuterol/Iprat 2.5/0.5mg 3 Ml Ampul.Neb INHALE TID PRN Shortness Of Breath Aspirin 325 mg 06/24/20 09:00 06/25/20 08:24 Aspirin 325 Mg Tablet PO 325 mg BID TITA Administration Fluticasone/Vilanterol 1 puff 06/24/20 08:00 06/25/20 08:28 Fluticasone/Vilanterol 200/25 Blst.W.Dev INHALE 1 puff RDAILY TITA Administration Lactated Ringer's 1,000 mls @ 100 mls/hr 06/23/20 06:15 06/25/20 06:31 Lr IVCONT 100 mls/hr .Q10H TITA Administration Ketorolac Tromethamine 15 mg 06/23/20 11:02 06/25/20 11:01 Ketorolac Tromethamine 15 Mg/Ml Vial IVPUSH Not Given Q6H TITA Montelukast Sodium 10 mg 06/23/20 21:00 06/24/20 20:44 Montelukast Sodium 10 Mg Tablet PO 10 mg BEDTIME TITA Administration Morphine Sulfate 2 mg 06/23/20 11:02 Morphine Sulfate 2 Mg/Ml Cartridge IVPUSH Q2H PRN Pain, Severe (Pain Scale 7-10) Naloxone HCl 0.2 mg 06/23/20 11:02 Naloxone Hcl 0.4 Mg/Ml Vial IVPUSH Q2M PRN Excessive sedation or RR < 8 Omeprazole 20 mg 06/24/20 06:30 06/25/20 05:54 Omeprazole 20 Mg Capsule.Dr PO 20 mg DAILY@0630 [facility] Administration Ondansetron HCl 4 mg 06/23/20 11:02 Ondansetron Hcl 4 Mg/2 Ml Vial IVPUSH Q8H PRN Nausea and Vomiting Oxycodone HCl 10 mg 06/23/20 11:02 06/25/20 10:56 Oxycodone Hcl Immed Release 5 Mg Tablet PO 10 mg Q6H TITA Administration Sodium Chloride 3 ml 06/23/20 16:00 06/25/20 07:38 0.9 % Sodium Chloride Flush 3 Ml Syringe IVFLUSH Not Given QSHIFT [facility] Labs CBC & Chem 7: 06/25/20 08:36 06/24/20 05:30 Assessment and Plan (1) Asthma: Status: Acute Assessment and Plan: 50F presented for elective right tKA osteoarthritis s/p right tka pod 2 management per ortho Physical therapy Plan to discharge Acute on chronic anemia Hemoglobin dropped to 8.1 from baseline of around 9.6 Secondary to blood loss and dilution from IV fluids Transfusion below 7 Start oral iron supplement at this point asthma stable breo, singulair GERD prilosec DVT PPX Full-dose aspirin by orthopedic team
--- NOTE | 2020-06-26 09:47 | P.OP_ITS ---
Operative Note Operative Note Date of Service: 06/23/20 Narrative: SURGEON: Dr Dilcia Frazier) Georgina DOVER SERVICE [employer] FOREMAN: Angela ROLDAN PREOP DIAGNOSIS: OSTEOARTHRITIS RIGHT KNEE POSTOP DIAGNOSIS: SAME OPERATIVE PROCEDURE: RIGHT Total knee arthroplasty - JADA NEXGEN CRFlex GSF SIZE F RIGHT FEMUR, 5 X 10 MM MONOBLOCK TIBIAL COMPONENT, 32 MM MONOBLOCK PATELLAR COMPONENT CLINICAL NOTE: This individual comes in today in regards to their knee. Has osteoarthritis. Has failed non operative management. Therefore after explaining the risks benefits and alternatives and answering all the questions it was mutually agreed upon care following procedure OPERATIVE DETAILS With of regional and spinal anesthetic the patient was placed supine on the operating table. Pneumatic tourniquet cuff was placed around the upper thigh and inflated to 300 mm of mercury at the beginning of the case. The leg was then prepped and draped in standard fashion with the leg free. Surgical time-out was then performed. The patient was identified. Procedure confirmed. Site confirmed. Medical and allergy history reviewed. Preoperative antibiotics were given. Standard DVT prophylaxis in place. Tranexamic acid was given as well. All other items were discussed and agreed upon. Standard small midline incision was made. Was taken down through the subcutaneous tissues. Hemostasis achieved along the way using electrocautery. This brought us to the extensor mechanism where a medial parapatellar arthrotomy in a subvastus technique was performed. The patella was retracted into the lateral gutter. The soft tissues were elevated from the anterior aspect of the femur. At the level of the tibia the soft tissue elevated medially excising a portion of the meniscus as well as protecting the medial-sided soft tissues. Similarly on the lateral side a portion of the fat pad, portion of the meniscus were excised. The lateral-sided soft tissues were elevated protecting them as well. The ACL was resected. We turned our attention then to the femur. Standard ex to medullary hole was established. The cutting guide was set for 5 degrees of valgus with a standard cut. It was held in place with pins and the surface resected flat. The sizing guide was then used. The femur was sized to a F. The 3 degree external rotation pins were set. The all in 1 cutting guide for this size was placed the pins and centered over the distal cut. Following this the anterior and anterior chamfer cuts, the posterior and posterior chamfer cuts, the patellar recess cuts, as well as the lug holes were made. The guide was removed. The bony fragments removed and we turned our attention to the tibia. The remainder of the medial and lateral menisci were excised. The extramedullary guide was then used in standard fashion referencing the tibial tubercle, the subcutaneous border of the tibia, and the middle of the ankle. The slope was then set. The cut was referenced from the more worn size for a minimal cut. The surface was then resected. The bony segment removed. The tibia was then trialed to a size 5. It was aligned as the extra medullary guide had been. A 10 mm trial insert was put into place. The femoral trial was also applied with good fit. The alignment of the leg was excellent. The knee was t hen placed through a range of motion which demonstrated full extension full flexion stable medially and laterally at 0, 30, 60, and 90 degrees of flexion. Patella tracked centrally. Turning our attention to the patella. The soft tissues were elevated circumferentially. The surface was resected flat. It sized to a 32 MM. A local drilled in standard The trial component was put into place with excellent fit. It tracked nicely through flexion extension. Therefore the trial sizes were appropriate and therefore the permanent components were selected and brought up onto the table. The trial components were then all removed after the peg holes for the tibia were made. The tourniquet was then let down with total tourniquet time of 50. The area of the lateral geniculate artery was identified and cauterized. Any excessive bleeding points were also cauterized. The knee was then thoroughly irrigated. The permanent components were brought up onto the table. The tibia followed by the femur followed by the patella were all Press-Fit into place. The knee was placed through range of motion. It had full flexion and extension. He was stable medial laterally in all positions. Patella tracked centrally. And therefore we proceeded to closure. Wound was thoroughly irrigated. The extensor mechanism was closed with #2 Quill suture. The skin was approximated with 2-0 Polysorb suture. The skin was closed with bia. Sterile dressing was then applied. The patient was then transferred supine to the room bed and taken to the recovery room in good condition. Intraoperatively a 2nd unit a transit make acid was given at the time of closure. There was approximately 25 cc of blood loss. No intraop transfusions or complications. .
== END 2020-06-25 12:51 | disposition home health service (06) | DRG 470 ==
LOC: HO.SSSA 06:11 → HO.S3 10:54
PROVIDERS: Internal Medicine; Physician Assistant; Admitting Provider Orthopaedic Surgery; PCP Physician Assistant; Visit Provider Orthopaedic Surgery
PROC: 0SRC0JA Replacement of Right Knee Joint with Synthetic Substitute, Uncemented, Open Approach (ICD-10-PCS; CPT 27447; principal; 2020-06-23 07:30)
DX: M17.12 Unilateral primary osteoarthritis, left knee (principal); D62 Acute posthemorrhagic anemia; K21.9 Gastro-esophageal reflux disease without esophagitis; J45.909 Unspecified asthma, uncomplicated; Z20.822 Contact with and (suspected) exposure to COVID-19; Z79.51 Long term (current) use of inhaled steroids; Z79.899 Other long term (current) drug therapy
CPT/HCPCS: 36415; 73560; 80048; 85014; 85018; 85025; 86850; 86900; 86901; 87635; 87640; 87641; 88305; 88311; 97110; 97116; 97162; 97165; C1776; J0690; J1100; J1885; J2250; J2370; J2405; J3010

== ENCOUNTER → 2020-07-09 13:37 | Outpatient (BNVA) | payer OTHER, SELFPAY | PROVIDERS: Visit Provider Physician Assistant ==

== ENCOUNTER 2020-07-17 14:32 | Outpatient (REF) | payer OTHER, SELFPAY ==
--- NOTE | ~2020-07-17 | US_ITS ---
EXAMINATION: US VENOUS ULTRASOUND WITH DOPPLER LOWER EXTREMITY, RIGHT CLINICAL INFORMATION: Postoperative pain and swelling right lower extremity COMPARISON: None TECHNIQUE: Ultrasound of the deep veins is performed from the hip to the calf with compression sonography and color and pulse Doppler assessment. Spectral analysis with color-flow imaging is performed. FINDINGS: There is normal venous compression and respiratory variation and augmented flow. The visualized common femoral vein, superficial femoral vein, profunda femoral vein, popliteal vein, and the trifurcation region shows no evidence of deep venous thrombosis. Within the popliteal fossa there is an approximately 6.2 x 4.7 x 2.8 cm complex fluid collection consistent with popliteal fossa cyst. If the patient's symptoms persist, followup ultrasound in 5 days 7 days might be of value to exclude proximal propagation from a non-visualized calf vein. US/US venous duplex LE RT IMPRESSION: No acute DVT demonstrated in the right lower extremity.
== END 2020-07-17 14:33 | disposition home or self-care (01) ==
LOC: HO.US 14:32
PROVIDERS: Visit Provider Physician Assistant
DX: Z96.651 Presence of right artificial knee joint (principal)
CPT/HCPCS: 93971

== ENCOUNTER → 2020-08-06 13:29 | Outpatient (BNVA) | payer OTHER, SELFPAY | PROVIDERS: Visit Provider Orthopaedic Surgery ==

== ENCOUNTER 2020-09-17 11:00 | Outpatient (REF) | payer OTHER, SELFPAY ==
--- NOTE | ~2020-09-17 | XR_ITS ---
EXAMINATION: XR KNEE STANDING, BILATERAL XR KNEE, RIGHT CLINICAL INFORMATION: Right knee pain. COMPARISON: Right knee 06/24/2020 TECHNIQUE: AP bilateral knees standing 1 view. Right knee 1 view. FINDINGS: AP Bilateral Knee: There is a total right knee arthroplasty with prosthetic components in satisfactory alignment. No loosening or joint abnormality seen. There is mild reduction in the medial and lateral compartment joint space of left knee with minimal periarticular spurring. Right Knee: There is a total right knee arthroplasty with prosthetic components in satisfactory alignment. There is no suprapatellar joint effusion. No soft tissue swelling. There are no loose bodies. There is new bone fragment or spurring posterior to the distal femoral prosthesis. Question loose body. XR/XR knee RT 2V IMPRESSION: Total right knee arthroplasty in satisfactory alignment. There is a new bone fragment posterior to distal femoral prosthesis, question loose body. Comparison done to last exam 06/24/2020.
--- NOTE | ~2020-09-17 | XR_ITS ---
EXAMINATION: XR KNEE STANDING, BILATERAL XR KNEE, RIGHT CLINICAL INFORMATION: Right knee pain. COMPARISON: Right knee 06/24/2020 TECHNIQUE: AP bilateral knees standing 1 view. Right knee 1 view. FINDINGS: AP Bilateral Knee: There is a total right knee arthroplasty with prosthetic components in satisfactory alignment. No loosening or joint abnormality seen. There is mild reduction in the medial and lateral compartment joint space of left knee with minimal periarticular spurring. Right Knee: There is a total right knee arthroplasty with prosthetic components in satisfactory alignment. There is no suprapatellar joint effusion. No soft tissue swelling. There are no loose bodies. There is new bone fragment or spurring posterior to the distal femoral prosthesis. Question loose body. XR/XR knee standing BI IMPRESSION: Total right knee arthroplasty in satisfactory alignment. There is a new bone fragment posterior to distal femoral prosthesis, question loose body. Comparison done to last exam 06/24/2020.
== END 2020-09-17 11:01 | disposition home or self-care (01) ==
LOC: HO.HOSX 11:00
PROVIDERS: Visit Provider Orthopaedic Surgery
DX: Z47.1 Aftercare following joint replacement surgery (principal); Z96.651 Presence of right artificial knee joint
CPT/HCPCS: 73560; 73565

== ENCOUNTER 2020-09-18 11:00 | Outpatient (RCR) | payer OTHER, SELFPAY ==
--- NOTE | 2020-08-01 14:44 | MHC.PT.OD ---
[facility] [place] [facility] [place] [facility] [place] [facility] [address] Grazyna Araujo [address] [phone] F: [phone] F: [phone] F: [phone] F: [phone] Physical Therapy Daily Note Diagnosis: Presence of unspecified artificial knee joint Surgery 06/23/20 s/p total knee arthroplasty signed by Dr. Erickson 07/03/20 Date of Surgery: 06/23/[address] Erickson Date of Evaluation: 07/11/20 Date of Treatment: 08/01/20 Treatments to Date: 10 Cancellations to Date: No Shows to Date: Authorized Visits: 1 Insurance End Date: Precautions/ Contraindications:anxiety, history of asthma Subjective: I wish that stiffness in the back there would go away, thats my biggest concern. Pain Score and Location: 4 R KNEE Objective Flowsheet: Tests & Measures [facility] [address] [place] [address] Ultrasound Report Signed Patient: Sue DuganMR#: [id number] : 1970Acct:[id number] Age/Sex: 50 / FADM Date: 07/17/20 Loc: HO. Attending Dr: Angela Bansal PA-C Ordering Physician: Angela Bansal PA-C Date of Service: 07/17/20 Procedure(s): US venous duplex LE RT Accession Number(s): [id number] cc: Angela Bansal PA-C~ EXAMINATION: US VENOUS ULTRASOUND WITH DOPPLER LOWER EXTREMITY, RIGHT CLINICAL INFORMATION: Postoperative pain and swelling right lower extremity COMPARISON: None TECHNIQUE: Ultrasound of the deep veins is performed from the hip to the calf with compression sonography and color and pulse Doppler assessment. Spectral analysis with color-flow imaging is performed. FINDINGS: There is normal venous compression and respiratory variation and augmented flow. The visualized common femoral vein, superficial femoral vein, profunda femoral vein, popliteal vein, and the trifurcation region shows no evidence of deep venous thrombosis. Within the popliteal fossa there is an approximately 6.2 x 4.7 x 2.8 cm complex fluid collection consistent with popliteal fossa cyst. If the patient's symptoms persist, followup ultrasound in 5 days 7 days might be of value to exclude proximal propagation from a non-visualized calf vein. US/US venous duplex LE RT IMPRESSION: No acute DVT demonstrated in the right lower extremity. Dictated By:DARION RAYMOND MD Signed By:<Electronically signed by DARION RAYMOND MD in OV>07/17/20 1541 Exercises SEATED BIKE AT seat # 4 X 15 MIN level 4.0 Step-up 2 inch, 4 inch, 6 inch x 3 sets 10R leading with R LE then L LE, lateral step ups step down from 4 inch x step and then 6 inch step, weight shifts on BOSU blue side up, standing frontal heel touch 4 inch, 6 inch ,gastroc stretch for R knee x 4 minutes, fwd step-ups/step-down x 2 sets 10R, lateral step-ups x 2 sets 10R with blue side up BOSU, wobble board weight shifts laterally, mini squats balancing in coronal plane, AAROM heel slides x 2 sets 5R, supine wall slides on wall x 1 set 5R, seated LAQ, AAROM heel slide to 120, AAROM hip ER stretch for R LE x 30 sec hold. BOSU blue side up, weight shifts laterally x 2 sets 10R. [ End ] Bridge over pball with blue band around thigh x 2 sets 10R, seated hip abd with blue band around thigh. AAROM heel slides with strap (reeducated use of strap/sheet for home), x 10 sec hold x 10R, cues to maintain respiration and focus on end range progression. Reviewed HEP sheet: AAROM heel slides seated and supine x 10 sec hold x 2 sets. Pt reports use of cream on knee, encouraged to avoid any cream near the incision/knee. Prone for STM/IASTM to medial HS insertion pre heel slide activity. Education re: STM/CFM over incision. ROcktape two I strips while in knee ext stretch for medial HS support. Sensation over HS intact pre/post application. Pt educated re: goals of use. Self care in re: HEP sheets issued/reviewed, icing knee 10-15 minutes, avoidance of removing steri-strips let them fall off on own, snip with scissors as they start to fall off , education to avoid from applying cream or lotion near incision (she reported using back of leg) Modalities ice pack in knee extension with bolster x 10 minutes Skin intact pre/post ice pack erythema response post removal. Assessment: Pt exhibits AROM 0- 110 AAROM 115 PROM 0-117. Pt encouraged to perform AAROM end range stretching several times daily to progress towards 120 goal. Reemphasized importance of stretching into discomfort with end range stretching. Pt states she is eager to book her L TKA. She remains OOW at this time ([employer] job). PT Plan: Follow up with Dr. Erickson on 08/06/20 at 1:30pm. Short Term Goals: 1. KNEE ext AROM 0. 2. Knee AAROM 100. 3. SLR with good strength on R. 4. Initiate HEP. Assisted Goals: 1. Knee ext 0 to 120 degrees flexion. 2. Negotiate a flight of stairs reciprocally with good dynamic balance. 3. Pt will wean from use of std cane for community ambulation. 4. Pt will demonstrate functional squat with 3:3 trials. [ End ] Electronically signed by: QING LARSEN, PT, DPT
--- NOTE | 2020-09-15 12:46 | MHC.PT.OD ---
[facility] [place] Office [place] Office [place] Office [address] Grazyna Araujo [address] [facility] [phone] F: [phone] F: [phone] F: [phone] F: [phone] Physical Therapy Daily Note Diagnosis: Presence of unspecified artificial knee joint Surgery 06/23/20 s/p total knee arthroplasty signed by Dr. Erickson 07/03/20 Date of Surgery: 06/23/[address] Erickson Date of Evaluation: 07/11/20 Date of Treatment: 09/15/20 Treatments to Date: 24 Cancellations to Date: No Shows to Date: Authorized Visits: 1 Insurance End Date: Precautions/ Contraindications:anxiety, history of asthma Subjective: Pt to see Dr. Erickson on Tuesday for scheduled check-up. Pain Score and Location: DISCOMFORT R POST KNEE Objective Flowsheet: Tests & Measures [address] [facility] [address] [place] [address] Office Visit Report Draft Patient: Sue DuganMR#: [id number] : [id number]:[id number] Age/Sex: 50 / FADM Date: 08/06/20 [facility]20 Attending Provider: Dilcia Erickson MD cc: ~ Intake Vital Signs 08/06/20 13:38 Height 5 ft 2 in Weight 200 lb BMI 36.6 Temp 97.3 F Temp Source Temporal Artery Scan Handedness Right Intake Visit Reasons: Post Op -LT TKA 06/23/2020 4 week follow up Intake Note: Sue presents today for her left knee, she is s/p R TKA 06/23/2020. She states that she is feeling frustrated as she is constantly making progress and back tracking. She explains what she is feeling as a restless feeling as she feels uncomfortable. she is having pain, numbness, tightness of the joint and skin, a crawling sensation, warmth and difficulty sleeping Allergies No Known Allergies Allergy (Verified 07/09/20 14:00) HPI Post Op -LT TKA 06/23/2020 4 week follow up HPI Details This lady comes in today in regards to her right knee now 6 weeks post right total knee arthroplasty. She is doing well. She has some numbness and tingling around the scar. She has some discomfort on the medial side. She says she has some stiffness after sitting and getting up and getting going but overall she feels like she is doing okay but is concerned about these issues. [facility] Medical History Arthritis Asthma Cervical spondylosis without myelopathy Degenerative joint disease Depression Dyspnea due to COVID-19 GERD (gastroesophageal reflux disease) History of anxiety History of COVID-19 History of fatty infiltration of liver History of panic disorder Hx of irritable bowel syndrome PND (post-nasal drip) Post-traumatic osteoarthritis of right knee Sleep apnea Unilateral primary osteoarthritis, left knee Surgical History H/O colonoscopy History of arthroscopy of right knee History of esophagogastroduodenoscopy (EGD) History of lumbar laminectomy Hx of arthroscopic knee surgery Hx of tonsillectomy Social History Are you a primary hearing care professional to a significant other at home: No Do you presently have visiting nurse or other home services: No Alcohol intake: current Alcohol intake frequency: holidays/special occasions only service: No Current occupational status: employed Current occupation: Right Handed Review of Systems Eyes Reports no additional complaints ENT Reports no additional complaints Card Reports no additional complaints Resp Reports no additional complaints GI Reports no additional complaints Reports no additional complaints Musc Details: L Knee Reports as per HPI Neuro Reports no additional complaints Psych Reports no additional complaints Endo Reports no additional complaints Lonnie/Lymph Reports no additional complaints Aller/Immun Reports no additional complaints Physical Exam Vital Signs: Last Vital Signs Temp 97.3 F 08/06/20 13:38 Body Mass Index 36.6 Extrem Other: Right knee Inspection: Very well-healed incision. No swelling. Alignment: Normal Palpation: Mild tear medial discomfort. ROM: 0-120 Assessment & Plan Assessment & Plan (1) Status post total right knee replacement: Code(s): Z96.651 - Presence of right artificial knee joint Plan - Dilcia Erickson MD: I reassured her she is doing well. These are all normal things that she has. Fact she is doing quite well in terms of range of motion and her functioning. At this time she should continue doing her exercises and stretching. Things will continue to improve. I will see her again in 6 weeks time in follow-up with x-ray. She did talk about doing the other knee. If and when she wants to do is she just needs to let Brooke know we would proceed from there. Coding Diagnoses Status post total right knee replacement Z96.651 Documented By:Dilcia Erickson MD08/06/20 1337 Exercises Seated bike level 4.0 x 10 minutes plus cooldown Standing toe taps for SLS control onto 6 inch step x 2 sets 10R, standing lateral toe taps x 2 sets 10R frontal>lateral>posterior x 2 set 10R, BOSU blue side up, step ups frontal and laterally x 2 sets 10R with cues for upright posture/balance support; review of standing mini squats reviewed sequencing, lateral step-up/step-down x 2 sets 10R; WOBBLE BOARD AP AND LAT STATIC HOLD X 2 MIN EA(initially no pain in lumbar requesting to complete today), STANDING 4 WAY HIP WITH SUPPORT LEG ON FOAM PAD X 10R EA DIR B, SLS R ON FOAM PAD FOR YELLOW TB 4 WAY X 10 R EA stopped after 10 R due to sx irritating in lumbar region. Prone for IASTM to medial HS musculature with HG #7 strumming response x 10 minutes in effort to increase tissue extensibility/reduce pain. MET correction for R anterior innominate rotation. Ice to R knee post session x 10 minutes to R knee while in knee extension. Modalities ice pack in knee extension with bolster x 10 minutes Skin intact pre/post ice pack erythema response post removal. Assessment: AAROM R knee 0-120. Pt has met STG/LTG with therapy... Follow up with Dr. Erickson on 09/17/20. Pt demonstrates resolving L lumbar strain sx. Has implemented walking program; encouraged she is progressing very well post recovery. PT Plan: Follow up with Dr. Erickson on 09/17/20. Anticipate transition to I HEP following MD follow up. Short Term Goals: 1. Met all STGS. [ End ] Mcc Goals: 1. LTG AAROM>AROM R knee flexion 120. 1A) Bend R knee to don socks. 2. Reciprocal stair negotiation with good dynamic balance ascending/descending. 3. Strength R knee ext 5/5. 4. Carry a case of water down 5 steps with good dynamic balance. 5. SLS R LE 20 seconds to don pants when standing. [ End ] Electronically signed by: Chrissie Garrett, PT, DPT
== END 2021-01-02 12:53 | disposition home or self-care (01) ==
LOC: HO.PTWFD 11:00
PROVIDERS: PCP Physician Assistant; Visit Provider Orthopaedic Surgery
DX: Z96.651 Presence of right artificial knee joint (principal); Z98.890 Other specified postprocedural states
CPT/HCPCS: 97110; 97140; 97162; 97530; 97535

== ENCOUNTER 2024-08-29 15:09 | Outpatient (AMB) | payer BC, SELFPAY ==
--- NOTE | 2024-08-29 15:12 | MHC.OFFVIS ---
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 Patient reports that she has had wrist/hand numbness and tingling ongoing for about 1 months now. The numbness onsets when sleeping and when writing. She has locking and catching of the right ring finger. There was a previous injury about 2 months ago where she dropped a heavy object on her hand. The locking and catching was not immediately seen after the injury but did onset a few weeks after that. She also reports a small bump on the left middle finger located just distal to the mcp. It is painful. 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 Patient reports that she has had wrist/hand numbness and tingling ongoing for about 1 months now. The numbness onsets when sleeping and when writing. She has locking and catching of the right ring finger. There was a previous injury about 2 months ago where she dropped a heavy object on her hand. The locking and catching was not immediately seen after the injury but did onset a few weeks after that. She also reports a small bump on the left middle finger located just distal to the mcp. It is painful. [facility] Medical History (Updated 09/04/24 @ 08:32 by CLEOPATRA Colindres) PND (post-nasal drip) Arthritis History of fatty infiltration of liver History of anxiety Sleep apnea History of COVID-19 Depression Cervical spondylosis without myelopathy History of panic disorder Degenerative joint disease Hx of irritable bowel syndrome GERD (gastroesophageal reflux disease) Asthma Dyspnea due to COVID-19 Unilateral primary osteoarthritis, left knee Post-traumatic osteoarthritis of right knee Surgical History (Updated 08/29/24 @ 15:20 by Sommer Jimenez CMA) History of left knee replacement (~01/06/21) History of arthroplasty of right knee (~06/23/20) History of esophagogastroduodenoscopy (EGD) H/O colonoscopy Hx of arthroscopic knee surgery Hx of tonsillectomy History of lumbar laminectomy History of arthroscopy of right knee Social History Are you a primary intensive care anaesthetist to a significant other at home: No Do you presently have visiting nurse or other home services: No Alcohol intake: current Alcohol intake frequency: holidays/special occasions only service: No Current occupational status: employed Current occupation: Right Handed Review of Systems Const All systems reviewed & are unremarkable except as noted in HPI and below Physical Exam Vital Signs: BMI result Body Mass Index 38.8 Extrem Other: Neuro: Decreased sensation in the tips of digits of the right hand in the office today Normal sensation in the tips of all digits of the left hand today. No thenar or intrinsic wasting. Good APB muscle firing and good finger cross. Vascular: Capillary refill brisk. ROM: Patient can make a fist and extend all their digits. There is visible and palpable locking and catching of the right ring finger in a flexed position Skin: No lacerations or abrasions noted. General: No ecchymosis. No erythema or evidence of infection. Assessment & Plan Assessment & Plan (1) Numbness and tingling in right hand: Code(s): R20.0 - Anesthesia of skin; R20.2 - Paresthesia of skin Category: Medical (2) Trigger finger, right ring finger: Code(s): M65.341 - Trigger finger, right ring finger Category: Medical Plan 1. Numbness and tingling of right hand 2. Right ring finger trigger finger Patient is educated about these conditions Patient is educated about the typical treatment course At this time, patient is referred for EMG and nerve conduction study to assess the health of the nerves of the right upper extremity Due to the fact that I have a high index of suspicion that this patient has some kind of underlying neuropathy that might need surgical intervention, I advised the patient that she should hold off on surgical intervention for her right trigger finger until we have the results of the EMG and nerve conduction study, as we can perform the surgeries together and negate the need for multiple procedures Patient understands this and is amenable to this plan Follow-up after EMG and nerve conduction study for results review and discussion of further treatment options, sooner with any acute concerns Orders: Orders NE electromyogram (EMG) 08/29/24 R20.0 - Anesthesia of skin, R20.2 - Paresthesia of skin NE nerve conduction velocity 08/29/24 R20.0 - Anesthesia of skin, R20.2 - Paresthesia of skin Coding Level of Care Code Est Pt Level 3 (63330) Diagnoses Numbness and tingling in right hand R20.0; R20.2 Trigger finger, right ring finger M65.341
[2024-08-29 15:20] VITALS: BMI 38.8
--- OUTSIDE RECORDS SUMMARY | 2024-08-29 15:28 | XMS_ITS ---
Author Name [facility] Organization Unknown History of Medication Use Medication Directions Dispensed Refills Start Date End Date Stat us gabapentin (NEURONTIN) 100 MG capsule Take 1 capsule (100 mg total) by mouth 3 (three) times a day. 03/02/2023 active cyclobenzaprine (FLEXERIL) 5 MG tablet TAKE 1 TABLET BY MOUTH THREE TIMES A DAY NEEDED FOR MUSCLE SPASMS 12/01/2022 active methocarbamol (ROBAXIN) 500 MG tablet TAKE 1 TABLET BY MOUTH EVERY 6 HOURS NEEDED. 12/01/2022 active busPIRone (BUSPAR) 5 MG tablet Take 1 tablet (5 mg total) by mouth 2 (two) times a day. 10/27/2022 active amoxicillin (AMOXIL) 500 MG capsule Take 4 tablets one hour prior to dental procedure 04/01/2022 active montelukast (SINGULAIR) 10 MG tablet TAKE 1 TABLET AT BEDTIME 09/12/2020 active albuterol 108 (90 Base) MCG/ACT inhaler Inhale 2 puffs into the lungs every 6 (six) hours as needed for wheezing. active Problems Problem Status Onset Date Problem Type Date of Resoluti on Source Chronic pain of right ankle active 2022-10-20 ProblemAct [facility] Obesity (BMI 30-39.9) active 2020-12-29 ProblemAct [facility] Palpitations active 2022-09-22 ProblemAct [facility] SOB (shortness of breath) active 2022-11-17 ProblemAct [facility] Left chest pressure active 2022-11-17 ProblemAct [facility] Generalized osteoarthritis active 2023-03-02 ProblemAct [facility] Positive FRANKLIN (antinuclear antibody) active 2022-10-20 ProblemAct [facility] Chronic bilateral low back pain with bilateral sciatica active 2022-12-01 ProblemAct [facility] Right foot pain active 2022-12-[address] [facility] Encounters Encounter Type Encounter Reason Primary Diagnosis Location Date Ambulatory [facility] [place] 11/19/2022 Ambulatory [facility] Ambulatory [facility] [place] 10/18/2022 Ambulatory [facility] [place] 09/01/2022 Ambulatory [facility] [place] 07/28/2022 Ambulatory [facility] [place] 06/23/2022 Ambulatory [facility] [place] 06/09/2022 Care Team Organization Name Specialty Phone Email Start Date End Da te [facility] 11/17/2022 05/10/2024 [facility] Carrie Penny Primary Care 11/16/202210/23
--- OUTSIDE RECORDS SUMMARY | 2024-08-29 15:28 | XMS_ITS | Clinical Summary ---
Author Organization [facility] Address [address] [place] [address] Care Team Providers Care Mechanical Design Engineer Products Name Role Phone Carrie Penny PA-C Primary Care Provider Allergies No known active allergies Medications Medication Sig Dispensed Refills Start Date End Date Status montelukast (SINGULAIR) 10 MG tablet TAKE 1 TABLET AT BEDTIME 0 09/12/2020 Active albuterol 108 (90 Base) MCG/ACT inhaler Inhale 2 puffs into the lungs every 6 (six) hours as needed for wheezing. 0 Active amoxicillin (AMOXIL) 500 MG capsule Take 4 tablets one hour prior to dental procedure 4 capsule 1 04/01/2022 Active pantoprazole (PROTONIX) 40 MG tablet Take 1 tablet (40 mg total) by mouth every morning before breakfast. 0 01/17/2022 Active busPIRone (BUSPAR) 5 MG tablet Take 1 tablet (5 mg total) by mouth 2 (two) times a day. 0 10/27/2022 Active traMADol (ULTRAM) 50 MG tablet Take 50 mg by mouth every 8 (eight) hours as needed for pain or severe pain (7-10). 30 tablet 0 11/30/2022 Active cyclobenzaprine (FLEXERIL) 5 MG tablet TAKE 1 TABLET BY MOUTH THREE TIMES A DAY NEEDED FOR MUSCLE SPASMS 180 tablet 0 12/01/2022 Active lidocaine (LIDODERM) 5 % Place 1 patch onto the skin daily. Remove & Discard patch within 12 hours or as directed by MD 30 patch 0 03/02/2023 Active diclofenac (VOLTAREN) 75 MG EC tabletIndications:C hronic bilateral low back pain with bilateral sciatica,Right foot pain Take 1 tablet (75 mg total) by mouth 2 (two) times a day. 180 tablet 2 03/02/2023 Active gabapentin (NEURONTIN) 100 MG capsule Take 1 capsule (100 mg total) by mouth 3 (three) times a day. 270 capsule 1 03/02/2023 Active methocarbamol (ROBAXIN) 500 MG tabletIndications:C hronic bilateral low back pain, unspecified whether sciatica present TAKE 1 TABLET BY MOUTH EVERY 6 HOURS NEEDED. 120 tablet 1 09/13/2023 Active Active Problems Problem Noted Date Diagnosed Date Generalized osteoarthritis 03/02/2023 Right foot pain 12/01/2022 Chronic bilateral low back pain with bilateral s ciatica 12/01/2022 SOB (shortness of breath) 11/17/2022 Left chest pressure 11/17/2022 Positive FRANKLIN (antinuclear antibody) 10/20/2022 Chronic pain of right ankle 10/20/2022 Pain in both feet 10/20/2022 Palpitations 09/22/2022 Obesity (BMI 30-39.9) 12/29/2020 Family History Medical History Relation Name Comments Diabetes Brother Arthritis Father Angina Maternal Grandfather Dementia Maternal Grandmother Arthritis Mother Heart murmur Mother Hyperlipidemia Mother Thyroid disease Mother Arthritis Sister Irritable bowel syndrome Sister Relation Name Status Comments Brother Father Alive Maternal Grandfather Maternal Grandmother Mother Alive Sister Alive Social History Tobacco Use Types Packs/Day Years Used Date Smoking Tobacco: Never Smokeless Tobacco: Never Tobacco Cessation:Counseling Given: Yes Alcohol Use Standard Drinks/Week Comments Yes 0 (1 standard drink = 0.6 oz pur e alcohol) socially Sex and Gender Information Value Date Recorded Sex Assigned at Female 11/12/2022 1:36 PM EDT Gender Identity Not on file Sexual Orientation Not on file Job Start Date Occupation Industry Not on file Not on file Not on file Last Filed Vital Signs Vital Sign Reading Time Taken Comments Blood Pressure 126/70 03/02/2023 4:22 PM EST Pulse 90 03/02/2023 4:22 PM EST Temperature 35.8 C (96.4 F) 12/29/2020 2:55 PM EST Respiratory Rate 16 11/30/2022 4:15 PM EDT Oxygen Saturation 97% 03/02/2023 4:22 PM EST Inhaled Oxygen Concentration - - Weight 96.6 kg (213 lb) 03/02/2023 4:22 PM EST Height 154.9 cm (5' 1 ) 03/02/2023 4:22 PM EST Body Mass Index 40.25 03/02/2023 4:22 PM EST Plan of Treatment Health Maintenance Due Date Last Done Comments Hepatitis B Vaccines (1 of 3 - 3-dose series) 1970 Hepatitis C Screening 1970 COVID-19 Vaccine (#1) 1970 Depression Screening 1981 Preventative Health Evaluation 1987 Cervical Cancer Screening (Pap Smear) 1990 Colon Cancer Screening (Colonoscopy) 2014 Breast Cancer Screening (Mammogram) 2019 Shingrix-Zoster Vaccine (1 o f 2) 2019 DTap / Tdap / Td (2 - Td or Tdap) 06/05/2023 06/04/2013 BMI Counseling 02/03/2024 02/02/2023, 01/03/2023 Influenza Vaccine (#1) 2024 Pneumococcal Vaccine Aged Out No long er eligible based on patient's age to complete this topic RSV Ped < 20 months Aged Out No longe r eligible based on patient's age to complete this topic Care Teams Mechanical Design Engineer Products Relationship Specialty Start Date End Date Carrie Penny PA-C [address] [place] [id number] PCP - General Physician Line Technician 10/24/20
--- OUTSIDE RECORDS SUMMARY | 2024-08-29 15:28 | XMS_ITS | Clinical Summary ---
Author Organization [address] [facility] Address [address] [place] [address] Phone Care Team Providers Care Account [employer] Name Role Phone Carrie Penny Primary Care Provider + Allergies No known active allergies Medications albuterol HFA (PROAIR HFA ; PROVENTIL HFA ; VENTOLIN HFA) 90 mcg/actuation inhaler Inhale 2 puffs by mouth every 6 hours as needed. Active amoxicillin (AMOXIL) 500 mg capsule Take 4 tablets one hour prior to dental procedure 3 Active busPIRone (BUSPAR) 5 mg tablet Take 1 tablet (5 mg total) by mouth 2 (two) times a day. 3 Active lidocaine (LIDODERM) 5 % patch Place 1 patch on the skin 1 (one) time each day at the same time. 4 Active methocarbamoL (ROBAXIN) 500 mg tablet Take 1 tablet (500 mg total) by mouth every 6 hours as needed. 4 Active pantoprazole (PROTONIX) 40 mg EC tablet Take 1 tablet (40 mg total) by mouth every morning before breakfast. 2 Active traMADoL (ULTRAM) 50 mg tablet Take 1 tablet (50 mg total) by mouth every 8 hours as needed. Max Daily Amount: 150 mg 3 Active diclofenac (CATAFLAM) 50 mg tabletIndication s:Polyosteoarthr itis, unspecified Take 1 tablet (50 mg total) by mouth 2 (two) times a day. 60 tablet 3 5 Active tirzepatide, weight loss, (Zepbound) 2.5 mg/0.5 mL injectionIndicat ions:Obesity (BMI 35.0-39.9 without comorbidity) Inject 0.5 mL (2.5 mg total) under the skin every 7 (seven) days. 3 mL 1 Active gabapentin (NEURONTIN) 100 mg capsuleIndicatio ns:Bilateral foot pain Take 1 capsule (100 mg total) by mouth 3 (three) times a day. 90 capsule 2 5 Active Active Problems Problem Noted Date Diagnosed Date Obesity (BMI 35.0-39.9 without comorbidity) 04/2023 Generalized osteoarthritis 03/02/2023 Chronic bilateral low back pain with bilateral s ciatica 12/01/2022 Right foot pain 12/01/2022 Left chest pressure 11/17/2022 SOB (shortness of breath) 11/17/2022 Chronic pain of right ankle 10/20/2022 Pain in both feet 10/20/2022 Positive FRANKLIN (antinuclear antibody) 10/20/2022 Palpitations 09/22/2022 Allergic rhinitis Overview (06/21/2024): DX:Allergic rhinitis Anxiety Overview (06/21/2024): DX:Anxiety Asthma Overview (06/21/2024): DX:Asthma;COMMENT:mild persistent Fatty liver Overview (06/21/2024): DX:Fatty liver; COMMENT: US GERD without esophagitis Overview (06/21/2024): DX:GERD without esophagitis Encounters Date Type Department Care Team Description 08/09/2024 Telephone Internal Medicine [address] [place] [id number] Carrie Penny PA PRIOR AUTH 07/03/2024 Telephone Internal Medicine - [place] [address] [facility] [address] [place] [phone] Rukhsana Johnson MA prior auth 06/21/2024 1:00 PM EDT Office Visit Internal Medicine [address] [place] [phone] Carrie Penny PA Anxiety (Primary Dx); Moderate persistent asthma without complication; Allergic rhinitis, unspecified seasonality, unspecified trigger; GERD without esophagitis; Fatty liver; Obesity (BMI 35.0-39.9 without comorbidity); Bilateral foot pain from Last 3 Months Surgical History Surgery Date Site/Laterality Comments BACK SURGERY PROCEDURE: HISTORICAL BACK SURGERY; COMMENT: lumbar laminectomy TONSILLECTOMY PROCEDURE: HISTORICAL TONSILLECTOMY; COMMENT: age 15 T& A - due recurrent infections KNEE ARTHROSCOPY Bilateral PROCEDURE: DC ARTHROSCOPY AID TX SPINE&/FX KNEE W/O FIXJ; COMMENT: Dr. Christine TOTAL KNEE ARTHROPLASTY 06/23/2020 Right PROCEDURE: DC ARTHRP KNE CONDYLE&PLATU MEDIAL&LAT COMPARTMENTS; COMMENT: Dr. Erickson TOTAL KNEE ARTHROPLASTY 01/06/2021 Left PROCEDURE: DC ARTHRP KNE CONDYLE&PLATU MEDIAL&LAT COMPARTMENTS; COMMENT: Dr. Akins BACK SURGERY 2010 PROCEDURE:BACK SURGERY;COMMENT:lumbar laminectomy TOTAL KNEE ARTHROPLASTY 06/2020 Right PROCEDURE:TOTAL KNEE ARTHROPLASTY HEMORRHOID SURGERY 2010 PROCEDURE:HEMORRHOID SURGERY TONSILLECTOMY 1985 PROCEDURE:TONSILLECTOMY KNEE ARTHROSCOPY 2007 Right PROCEDURE:KNEE ARTHROSCOPY;COMMENT:right and left Medical History Medical History Date Comments Allergic rhinitis 06/19/2015 DX:Allergic rh initis Depression 06/19/2015 DX:Depression DJD (degenerative joint dise ase) of knee 02/15/2017 DX:DJD (degenerative joint d isease) of knee Generalized osteoarthritis o f multiple sites 02/15/2017 DX:Generalized osteoarthriti s of multiple sites GERD without esophagitis 08/16/2017 DX:GERD without esophagitis Internal hemorrhoids 06/29/2012 DX:Internal hemorrhoids Irritable bowel syndrome 08/16/2017 DX:Irri table bowel syndrome Panic disorder without agoraphobia 02/15/2017 DX:Panic disorder without agoraphobia 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 12/18/2015 DX:Spondylosis of cervical region without myelopathy or radiculopathy Obesity (BMI 35.0-39.9 witho ut comorbidity) DX:Obesity (BMI 35.0-39.9 wi thout comorbidity) Fatty liver 10/02/2021 DX:Fatty liver; COMMENT: US Asthma DX:Asthma;COMMEN T:mild persistent GERD (gastroesophageal reflu x disease) DX:GERD (gastroesophageal re flux disease) Sleep apnea, obstructive DX:Slee p apnea, obstructive;COMMENT:Sleep study September 2020 mild per patient Anxiety DX:Anxiety Osteoarthritis DX:Osteoarthriti s Family History Medical History Relation Name Comments Diabetes Brother Arthritis Father Angina Maternal Grandfather Dementia Maternal Grandmother Arthritis Mother Heart murmur Mother Hyperlipidemia Mother Other: hyperlipidemia Mother Thyroid disease Mother Arthritis Sister 2 Irritable bowel syndrome Sister 2 Relation Name Status Comments Brother Father Alive Maternal Grandfather Maternal Grandmother Mother Alive Sister 1 Alive Sister 2 Alive Social History Tobacco Use Types Packs/Day Years Used Date Smoking Tobacco: Never Smokeless Tobacco: Never Alcohol Use Standard Drinks/Week Comments Yes 0 (1 standard drink = 0.6 oz pur e alcohol) Comments No Sex and Gender Information Value Date Recorded Sex Assigned at Female 01/17/2024 10:00 AM EST Legal Sex Female 6:49 PM EST Gender Identity Female 01/17/2024 10:00 AM EST Sexual Orientation Choose not to disclose 2023 10:00 AM EST Obstetrics History Last Filed Vital Signs Vital Sign Reading Time Taken Comments Blood Pressure 132/84 06/21/2024 1:02 PM EDT Pulse 65 06/21/2024 1:02 PM EDT Temperature 36.8 C (98.2 F) 06/21/2024 1:02 PM EDT Respiratory Rate - - Oxygen Saturation 97% 06/21/2024 1:02 PM EDT Inhaled Oxygen Concentration - - Weight 97.5 kg (215 lb) 06/21/2024 1:02 PM EDT Height 157.5 cm (5' 2 ) 06/21/2024 1:02 PM EDT Body Mass Index 39.32 06/21/2024 1:02 PM EDT Plan of Treatment Upcoming Encounters Date Type Department Care Team (Late st Contact Info) Description 09/21/2024 3:00 PM EDT Office Visit Internal Medicine [facility] 175 [facility] [address] [place] [phone] Carrie Penny PA [address] [facility] [address] [place] [address] Health Maintenance Due Date Last Done Comments Breast Cancer Screening 1970 Hepatitis A Vaccines (1 of 2 - Risk 2-dose series) 1988 Hepatitis B Vaccines (1 of 3 - 19+ 3-dose series) 1988 Pneumococcal Vaccine: 50+ Ye ars (1 of 2 - PCV) 1988 Cervical Cancer Screening: P ap Smear 1990 Zoster Vaccines (1 of 2) 2019 Colorectal Cancer Screening: Colonoscopy 01/30/2022 Depression Screening 01/30/2022 HIV Screening 01/30/2022 Hepatitis C Screening 01/30/2022 Social Influencers of Health Screening 01/30/2022 DTaP,Tdap,and Td Vaccines (2 - Td or Tdap) 06/05/2023 06/04/2013 COVID-19 Vaccine (1 - 2023-2 5 season) 2023 Influenza Vaccine (#1) 2024 Cholesterol Screening (Lipid Panel) 12/22/2028 12/23/2023 HIB Vaccines Aged Out No longer eligi ble based on patient's age to complete this topic HPV Vaccines Aged Out No longer eligi ble based on patient's age to complete this topic IPV Vaccines Aged Out No longer eligi ble based on patient's age to complete this topic MMR Vaccines Aged Out No longer eligi ble based on patient's age to complete this topic Meningococcal ACWY Vaccine Aged Out N o longer eligible based on patient's age to complete this topic Meningococcal B Vaccine Aged Out No l onger eligible based on patient's age to complete this topic RSV Immunization Patients Un erika 20 months Aged Out No longer eligible b ased on patient's age to complete this topic Varicella Vaccines Aged Out No longer eligible based on patient's age to complete this topic Insurance [facility] [place] [id number] [facility] 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
--- OUTSIDE RECORDS SUMMARY | 2024-08-29 15:28 | XMS_ITS | Data Portability ---
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 She has symptomatic right groin pain with arthritis is noted on radiograph previously. I will send her for an MRI to rule out AVN. She does have history of extensive prednisone use. She has yet to see her primary care regarding referral to a back specialist she still continues to get lumbar back manipulation by her chiropractor without significant improvement. She is currently under the care of a product specialist who is considering bracing her due to chronic foot malalignment issues. I will see her back after her MRI of her right hip depending upon the findings and may have her see Dr. Akins. Or she may need to be referred back to primary care versus pain management. If she has a normal MRI. She does state that she is currently getting a rheumatological work-up for her polyarthralgia throughout her body. Indirect care and treatment in conjunction with Dr. Akins Additional treatment plan discussed with the patient in detail included the following; - Provider focused nonsteroidal anti-inflammatory regimen (discussed were the pros, cons, benefits and risks as well as any black box warnings) - Analgesic pain medication for pain suppression (discussed were the pros, cons, benefits and risks as well as any black box warnings) - The use of topical pain relieving medication were discussed - The use of ice to decrease inflammation and pain - The use of assistive ambulatory devices for ambulation and fall prevention - Formal specific guided physical therapy program I reviewed my findings at length with the patient today. We discussed the nature and etiology of this problem along with current treatment options. We discussed the expected course and outcomes and what to expect. We also discussed risks and benefits. All of their questions were answered today, and there was exhibited understanding and comprehension of all that was discussed. 10 minutes were spent reviewing previous imaging and charting. 10 minutes were spent obtaining patient history. 5 minutes were spent on physical exam. 5minutes were spent explaining diagnosis and assessment. Today's documentation was made using voice recognition software. This note may contain grammatical errors secondary to the software. Not available 06/07/2022 15:59:01 06/21/2022 06/21/2022 52-year-old female following up after her right hip MRI that was conducted on 06/08/2022 with impression of bilateral trochanteric bursitis however clinically not present on exam. She has notable significant degenerative changes to the lumbar spine for which her primary care will be working up. She has ongoing polyarthralgias for which her foot and ankle specialist are working her up with a rheumatologic study. At this point this does not appear to be related to her right hip joint. She can follow-up as needed. Should she have any other orthopedic needs should they arise she should contact our office and we will refer her to the proper specialist for the specific complaint. The patient agrees with the above-noted plan. She will be following up with her primary care. Indirect care and treatment in conjunction with Dr. Akins Additional treatment plan discussed with the patient in detail included the following; - Provider focused nonsteroidal anti-inflammatory regimen (discussed were the pros, cons, benefits and risks as well as any black box warnings) - Analgesic pain medication for pain suppression (discussed were the pros, cons, benefits and risks as well as any black box warnings) - The use of topical pain relieving medication were discussed - The use of ice to decrease inflammation and pain - The use of assistive ambulatory devices for ambulation and fall prevention - Formal specific guided physical therapy program I reviewed my findings at length with the patient today. We discussed the nature and etiology of this problem along with current treatment options. We discussed the expected course and outcomes and what to expect. We also discussed risks and benefits. All of their questions were answered today, and there was exhibited understanding and comprehension of all that was discussed. 10 minutes were spent reviewing previous imaging and charting. 10 minutes were spent obtaining patient history. 5 minutes were spent on physical exam. 5minutes were spent explaining diagnosis and assessment. Today's documentation was made using voice recognition software. This note may contain grammatical errors secondary to the software. Not available 06/22/2022 07:56:37 Plan of Treatment Reminders Order Date Submit Date Provider Last Modified By Organization Details Last Modified Time Details Appointments None recorded. Lab None recorded. Referral None recorded. Procedures None recorded. Surgeries None recorded. Imaging MRI, hip, w/o contrast - Please call patient to schedule and hand carry CD- No prior auth required 2022 023 [email or web address] [facility], [address] [place], [address], 3 11:32:22 Medication Orders None recorded. Patient TargetsNo targets recorded. Patient InstructionsNo instructions recorded. Reason for Referral None Reported. Results Created Date Observation Date Name Description Value Unit Range Abnormal Flag Note LastModifiedBy Organization Detail LastModifiedTime 06/19/19 23 imagi ng/di agnos tic resul t No observ ation record ed. [email or web address] Not Available 06/18 15:12:23 Result Notes None recorded. Problems Name Problem SNOMED Code Status Onset Date Resolution Date Notes Provider Name and Address Organization Details Recorded Time Osteoarthri tis of right hip joint 1122599438052 07 Active 2022 ZAID PERDOMO PA-C [address] [facility],[address], [place], [address], [place] [facility] 3 13:13:01 Pain of hip region 40067248 Active 2022 ZAID PERDOMO PA-C [address] [facility],[address], [place], [address], [place] [facility] 3 07:56:31 Pain of hip region 73113570 Active 2022 ZAID PERDOMO PA-C [address] [facility], [place], [address] [place] [address] [facility] 07:56:41 Problem Notes None recorded. Procedures Surgical History Date Name Laterality Status Provider Name and Address Organization Details Recorded Time 02/21/19 21 Total knee arthroplasty completed [facility], [facility] 06/07/2022 15:30:19 02/21/19 11 procedure on back completed [facility], [facility] 06/07/2022 15:29:34 02/21/19 11 Ligation of hemorrhoid(s) completed [facility], [facility] 06/07/2022 15:29:48 02/21/19 08 Knee arthroscopy/surge ry completed [facility], [facility] 06/07/2022 15:30:01 02/21/18 86 tonsillectomy completed [facility], [facility] 06/07/2022 15:30:08 Imaging Results None recorded. Procedure Notes None recorded. Medical Equipment None Reported. Allergies No known drug allergies Medications Name Sig Start Date Stop Date Status Note LastModified by Organization Details LastModified Time amoxicillin 500 mg capsule TAKE 4 CAPSULES ONE HOUR PRIOR TO DENTAL PROCEDURE active Not Available Not Available No t Available buspirone 5 mg tablet TAKE 1 TABLET BY MOUTH TWICE A DAY active Not Available Not Available No t Available hydrocortis one valerate 0.2 % topical cream APPLY TO AFFECTED AREA TWICE A DAY NEEDED active Not Available Not Available No t Available meloxicam 15 mg tablet TAKE 1 TABLET (15 MG TOTAL) BY MOUTH DAILY NEEDED FOR PAIN FOR UP TO 30 DAYS. active Not Available Not Available No t Available prednisone 20 mg tablet TAKE 2 TABLETS EVERY DAY BY ORAL ROUTE WITH MEALS FOR 7 DAYS. active Not Available Not Available No t Available peg-electro lyte solution 420 gram oral solution TAKE 8 OUNCE BY MOUTH DIRECTED PATIENT TO FOLLOW INSTRUCTI ONS GIVEN AT THE DR'S OFFICE 06/07 completed Not Available Not Available Not Available pantoprazol e 40 mg tablet,maren yed release TAKE 1 TABLET BY MOUTH EVERY DAY BEFORE BREAKFAST active Not Available Not Available No t Available diclofenac potassium 50 mg tablet TAKE 1 TABLET BY MOUTH 2 TIMES DAILY NEEDED (JOINT PAIN). TAKE WITH FOOD active Not Available Not Available No t Available montelukast 10 mg tablet TAKE 1 TABLET BY MOUTH EVERYDAY AT BEDTIME active Not Available Not Available No t Available methylpredn isolone 4 mg tablets in a dose pack TAKE 6 TABLETS ON DAY 1 DIRECTED ON PACKAGE AND DECREASE BY 1 TAB EACH DAY FOR A TOTAL OF 6 DAYS 06/07 completed Not Available Not Available Not Available albuterol sulfate HFA 90 mcg/actuati on aerosol inhaler INHALE 2 PUFFS INTO THE LUNGS EVERY 4 HOURS NEEDED FOR COUGH, WHEEZING OR SHORTNESS OF BREATH. active Not Available Not Available No t Available loratadine 10 mg tablet TAKE 1 TABLET BY MOUTH EVERY DAY active Not Available Not Available No t Available Vitals None Recorded Social History None recorded. Functional Status None recorded. Mental Status None recorded. Family History Relationship Description Onset Age of this Age Resolved Age Notes LastModified by Organization Details LastModified Time Mother Arthritis Not availa ble 06/07/2022 15:30:29 Mother Hyperlipidem ia [email or web address] Not available 06/07 15:30:38 Mother Heart murmur [email or web address] Not jarret ilable 06/07/2022 15:30:53 Mother Disorder of thyroid gland [email or web address] Not available 06/07 15:31:18 Father Arthritis [email or web address] Not availa ble 06/07/2022 15:31:28 Sister Arthritis [email or web address] Not availa ble 06/07/2022 15:31:30 Sister Irritable bowel syndrome [email or web address] Not available 06/07 15:31:42 Brother Diabetes mellitus [email or web address] Not available 06/07 15:31:48 Maternal Grandmother Dementia [email or web address] Not available 15:31:59 Maternal Grandfather Angina pectoris Not available 06/07 15:32:09 Medical History Condition Response Anxiety Disorder Y Arthritis Y Asthma Y Reflux/GERD Y Sleep Apnea Y Gynecological HistoryNo gynecological history recorded. Obstetrics History GPAL:G 0 P 0 0 0 0 Past Encounters Encounter ID Performer Location Encounter Start Date Encounter Closed Date Diagnosis/Indication Diagnosis SNOMED-CT Code Diagnosis ICD10 Code Diagnosis Note [id number] LIBBY MARTINS [address] [place] [address] 06/07/2022 15:21:12 06/07/2022 15:56:20 Osteoarthritis of right hip joint [id number] 15585 M16.11 [id number] LIBBY MARTINS Mary[address] [facility] [address] [place] [address] 06/21/2022 15:10:36 06/21/2022 16:43:41 Pain of hip region 21913443 M25.559 Health Concerns Section Related Observation LastModified by Organization Detai ls LastModified Time None Recorded Concern Status LastModified by Organization Details LastModified Time None Recorded Advance Directives Directive None Recorded Payers Insurance Date Sequence Insurance Name Policy Number Policy Mercado Covered Member ID Mercado Member ID Guarantor Name 07/06/2022 1 [facility] [id number] Sue Alvarez [id number] Sue Alvarez Notes Date Note Type Note Provider Name and Address Organization Details Recorded Time 06/07/2022 text/html Assessment and P [place]: 3Diagnosis #1 bilateral iliotibial band syndromeI had a lengthy discussion with the patient guarding management. I did give her a list of stretching exercises. She is amenable to formal physical therapy I will also include gait retraining with her complaint of gait disturbance since her knee replacements.With her constitutional complaints of multiple joint pains and discomfort we will consider referral to rheumatology for medical managementI would like to see her back in 6 weeks time for repeat clinical exam. She does take [id number] pain medication which will give her some relief. She should also be stretching before during and after prolonged walking or exercise which she admits she is not doing. I did review her x-rays with her in detail and she agrees with the above-noted plan. We are not excluding advanced imaging if necessary.We also did discuss this could be possibly coming from her lumbar back for which she does have previous pathology and has had previous surgery however we will defer this back to the primary care for referral. HPI:Female zipper cutter present from entering the room to exit Corey Sanchez (VANESA) 52-year-old female last seen on 04/23/2022 sent to formal physical therapy iliotibial band syndrome with concomitant mild arthritis of the right hip. She states she has done 3 weeks of physical therapy which has given her full improvement on her left outer hip however she is complaining of right groin pain at this time. Here for scheduled follow-up. She is currently seeing another provider for her feet for which they are discussing bracing. She still has not followed up with her primary care regarding seeing somebody for her chronic back problems she still getting chiropractic manipulation weekly which does not have any improved fact that her chronic pain. ZAID PERDOMO PA-C [address] [place] [address], [phone], [place] [facility] 06/07/2022 16:00:07 06/21/2022 text/html Assessment / Matteo n: Date of visit [id number] female following up after treatment with physical therapy for bilateral iliotibial band syndrome. She has symptomatic right groin pain with arthritis is noted on radiograph previously. I will send her for an MRI to rule out AVN. She does have history of extensive prednisone use.She has yet to see her primary care regarding referral to a back specialist she still continues to get lumbar back manipulation by her chiropractor without significant improvement. She is currently under the care of a product specialist who is considering bracing her due to chronic foot malalignment issues.I will see her back after her MRI of her right hip depending upon the findings and may have her see Dr. Akins. Or she may need to be referred back to primary care versus pain management. If she has a normal MRI. She does state that she is currently getting a rheumatological work-up for her polyarthralgia throughout her body. HPI:Female zipper cutter present from entering the room until exiting the room at the end of the visitChjason Irene RT (R) Patient here for follow-up regarding her MRI of her right hip which was conducted 06/08/2022. Patient states still having ongoing groin pain. As stated above history of chiropractic manipulation. She is seen her product specialist who is working her up for rheumatological pathology. She denies any urinary or bowel changes denies saddle anesthesia. I personally reviewed the imaging studies conducted [facility] [id number] [place] [address] Patient: SUE ALVAREZ /Age/Sex: 1970 - 52 - FUnit#: [id number] Location/Status: SPDIMRI/REG CLIAccount#: [id number] Mnemonic/Ordering Site: HIPRTWO/SPMAINOrdering Physician: ZAID PERDOMO MR Hip RT WO - 06/08/22 -MRI of the right hip June 08, 2022 at 1947 hoursClinical History: Right hip osteoarthritis, chronic right hip pain.Technique: Multiplanar multiecho sequences through the right hip wereobtained without intravenous gadolinium.Axial: T1, E0Rnxpcgpm: V7Pgwfupp: T1, A1Lnwoloykjl: None.Findings:Evidence of significant osteophytic changes of visualized lumbar vertebrae.Fatty changes with atrophy of bilateral gluteus medius muscles areappreciated.T2 FS hyperintensity changes/ minimal free fluid appreciated along the greater trochanters bilaterally, right more than left.There is no fracture or osteonecrosis. Cortical margins of bilateral hipjoints are well maintained. No evidence of joint effusion. The iliopsoas,hamstring and short external rotators are intact. The sacroiliac joints arenormal. The pelvic viscera are unremarkable.Impressio n:Bilateral trochanteric bursitis, right more than left.Fatty changes with atrophy of bilateral gluteus medius muscles.Degenerative changes of visualized lumbosacral spine.Dictating Physician: JOHNY JANG MDElectronically Signed by: JOHNY JANG [facility] Date/Time: 06/09/22 08Sign date/Time: 06/09/22 0803 ZAID PERDOMO PA-C [address] [place] [address], [phone], [place] [facility] 06/22/2022 07:57:05 OBGyn Episode No OBEpisode recorded.
== END 2024-08-29 15:39 | disposition home or self-care (01) ==
LOC: HO.HOS 15:10
PROVIDERS: PCP Physician Assistant
DX: R20.0 Anesthesia of skin (principal); R20.2 Paresthesia of skin; M65.341 Trigger finger, right ring finger
CPT/HCPCS: 99203

== ENCOUNTER 2024-12-26 10:56 | Outpatient (REF) | payer BC, SELFPAY ==
--- NOTE | 2024-12-26 10:59 | EMG_ITS ---
Chief complaint: Right hand numbness Reason for referral: Evaluate for Carpal Tunnel Syndrome Referred by: Helio WHELAN Procedure done: Right upper extremity NCS/EMG Precautions and/or limitations: None The limb temperature was monitored continuously and remained between 32-36 degrees C during the performance of the NCS. Nerve Conduction Studies Anti Sensory Summary Table ?Stim Site NR Onset (ms) Norm Onset (ms) Peak (ms) Norm Peak (ms) O-P Amp (?V) Norm O-P Amp Site1 Site2 Delta-0 (ms) Dist (cm) Connor (m/s) Norm Connor (m/s) Right Median Anti Sensory (2nd Digit) Wrist ? 3.9 5.0 <3.6 16.1 >10 Wrist 2nd Digit 3.9 14.0 36 Right Radial Anti Sensory (Thumb) Forearm ? 1.3 2.1 <3.1 21.1 Forearm Thumb 1.3 0.0 Right Ulnar Anti Sensory (5th Digit) Wrist ? 2.3 3.1 <3.7 16.0 >15.0 Wrist 5th Digit 2.3 14.0 61 Motor Summary Table ?Stim Site NR Onset (ms) Norm Onset (ms) O-P Amp (mV) Norm O-P Amp iAmp (mV) Amp (1st) (%) Site1 Site2 Delta-0 (ms) Dist (cm) Connor (m/s) Norm Connor (m/s) Right Median Motor (Abd Poll Brev) Wrist ? 5.6 <3.9 9.3 >4.5 11.1 100.0 Elbow Wrist 4.0 19.0 48 >45 Elbow ? 9.6 8.2 10.0 88.2 Right Ulnar Motor (Abd Dig Minimi) Wrist ? 2.7 <3.0 8.1 >5 9.8 100.0 B Elbow Wrist 3.2 18.0 56 >45 B Elbow ? 5.9 7.8 9.9 96.3 A Elbow B Elbow 1.6 10.0 63 >45 A Elbow ? 7.5 8.9 11.1 109.9 EMG ?Side Muscle Nerve Root Ins Act Fibs Psw Amp Dur Poly Recrt Int Pat Comment Right 1stDorInt Ulnar C8-T1 Nml Nml Nml Nml Nml 0 Nml Complete Right FlexCarRad Median C6-7 Nml Nml Nml Nml Nml 0 Nml Complete Right Biceps Musculocut C5-6 Nml Nml Nml Nml Nml 0 Nml Complete Right Triceps Radial C6-7-8 Nml Nml Nml Nml Nml 0 Nml Complete Right Deltoid Axillary C5-6 Nml Nml Nml Nml Nml 0 Nml Complete FINDINGS: Right median motor nerve showed prolonged distal latency, normal amplitude and normal conduction velocity. Right median sensory nerve showed prolonged peak latencies. All other nerves tested were within normal. Concentric needle EMG was performed in selected muscles of the right upper extremity. Study did not reveal signs of electric abnormalities as shown in the table above. IMPRESSION: 1. This is an abnormal study. 2. There is electrodiagnostic evidence for right moderate-severe median neuropathy at the wrist, consistent with carpal tunnel syndrome. 3. There is no electrodiagnostic evidence for ulnar neuropathy, brachial plexopathy, or cervical radiculopathy. Thank you for your kind referral. Sally Sanders MD, EDITH Board Certified, [place] Board [employer] and Rehabilitation (ABPMR) Board Certified, [place] Board of Electrodiagnostic Medicine (ABEM) [place] [id number] [facility]
--- OUTSIDE RECORDS SUMMARY | 2024-12-26 12:56 | XMS_ITS | Clinical Summary ---
Author Organization [facility] Address [address] [place] [address] Care Team Providers Care In Home Sales Consultant Name Role Phone Carrie Penny PA-C Primary [...] age to complete this topic Care Teams In Home Sales Consultant Relationship Specialty Start Date End Date Carrie Penny PA-C [address] [place] [address] PCP - General Physician Vest Backer 10/24/20
--- OUTSIDE RECORDS SUMMARY | 2024-12-26 12:56 | XMS_ITS | Clinical Summary ---
Author Organization [address] [facility] Address [address] [place] [address] Phone Care Team Providers Care Van Cdl Driver Name Role Phone Carrie Penny Primary Care Provider + Allergies No known active allergies Medications albuterol HFA (PROAIR HFA ; PROVENTIL HFA ; VENTOLIN HFA) 90 mcg/actuation inhaler Inhale 2 puffs by mouth every 6 hours as needed. Active amoxicillin (AMOXIL) 500 mg capsule Take 4 tablets one hour prior to dental procedure 04/01/19 23 Active busPIRone (BUSPAR) 5 mg tablet Take 1 tablet (5 mg total) by mouth 2 (two) times a day. 10/28/19 23 Active lidocaine (LIDODERM) 5 % patch Place 1 patch on the skin 1 (one) time each day at the same time. 03/02/19 24 Active methocarbamoL (ROBAXIN) 500 mg tablet Take 1 tablet (500 mg total) by mouth every 6 hours as needed. 09/13/19 24 Active traMADoL (ULTRAM) 50 mg tablet Take 1 tablet (50 mg total) by mouth every 8 hours as needed. Max Daily Amount: 150 mg 12/01/19 23 Active gabapentin (NEURONTIN) 100 mg capsuleIndicati ons:Bilateral foot pain Take 1 capsule (100 mg total) by mouth 3 (three) times a day. 90 capsule 2 06/22/19 25 Active semaglutide (Wegovy) 0.25 mg/0.5 mL injection penIndications: Obesity (BMI 35.0-39.9 without comorbidity) Inject 0.25 mg under the skin every 7 (seven) days. 6 mL 1 09/22/19 25 Active diclofenac (CATAFLAM) 50 mg tabletIndicatio ns:Polyosteoart hritis, unspecified Take 1 tablet (50 mg total) by mouth 2 (two) times a day if needed (knee pain). Take with food. 60 tablet 3 10/17/19 25 Active pantoprazole (PROTONIX) 40 mg EC tabletIndicatio ns:Gastro-esoph ageal reflux disease without esophagitis TAKE 1 TABLET BY MOUTH EVERY DAY BEFORE BREAKFAST 90 tablet 3 12/06/19 25 Active pantoprazole (PROTONIX) 40 mg EC tablet Take 1 tablet (40 mg total) by mouth every morning before breakfast. 01/18/20 22 025 Discontinued Active Problems Problem Noted Date Diagnosed Date [...] Encounters Date Type Department Care Team Description 11/22/2024 4:23 PM EDT - 11/22/2024 11:59 PM EDT Hospital Encounter [facility] Non-Invasive Cardiology [address] [place] [address] Chest pain, unspecified Discharge Disposition: Home or Self Care from Last 3 Months Surgical History Surgery Date Site/Laterality Comments BACK SURGERY PROCEDURE: HISTORICAL BACK SURGERY; COMMENT: lumbar laminectomy TONSILLECTOMY PROCEDURE: HISTORICAL TONSILLECTOMY; COMMENT: age 15 T& A - due recurrent infections KNEE ARTHROSCOPY Bilateral PROCEDURE: HI ARTHROSCOPY AID TX SPINE&/FX KNEE W/O FIXJ; COMMENT: Dr. Christine TOTAL KNEE ARTHROPLASTY 06/23/2020 Right PROCEDURE: HI ARTHRP KNE CONDYLE&PLATU MEDIAL&LAT COMPARTMENTS; COMMENT: Dr. Erickson TOTAL KNEE ARTHROPLASTY 01/06/2021 Left PROCEDURE: HI ARTHRP KNE CONDYLE&PLATU MEDIAL&LAT COMPARTMENTS; COMMENT: Dr. [...] Sign Reading Time Taken Comments Blood Pressure 138/86 09/21/2024 2:55 PM EDT Pulse 76 09/21/2024 2:55 PM EDT Temperature 36.9 C (98.4 F) 09/21/2024 2:55 PM EDT Respiratory Rate - - Oxygen Saturation 97% 09/21/2024 2:55 PM EDT Inhaled Oxygen Concentration - - Weight 97.9 kg (215 lb 12.8 oz) 09/21/2024 2:55 PM EDT Height 157.5 cm (5' 2 ) 09/21/2024 2:55 PM EDT Body Mass Index 39.47 09/21/2024 2:55 PM EDT Plan of Treatment Upcoming Encounters Date Type Department Care Team (Late st Contact Info) Description 01/21/2025 3:00 PM EST Office Visit Internal Medicine - [facility] [address] [place] [address] Carrie Penny PA [address] [place] [phone] 04/25/2025 11:00 AM EST Consult Bariatric Surgery [address] [address] Fortino Webb MD [facility] [place] [address] Health Maintenance Due Date Last Done Comments Breast Cancer Screening 1969 Colorectal Cancer Screening: Colonoscopy 1969 Hepatitis A Vaccines (1 of 2 - Risk 2-dose series) 1988 Hepatitis B Vaccines (1 of 3 - 19+ 3-dose series) 1988 Pneumococcal Vaccine: 50+ Years (1 of 2 - PCV) 1988 Cervical Cancer Screening: P ap Smear 1990 RSV Immunization Adult Patients (1 - Risk 50-74 years 1-dose series) 2019 Zoster Vaccines (1 of 2) 2019 HIV Screening 01/30/2022 Hepatitis C Screening 01/30/2022 Social Influencers of Health Screening 01/30/2022 DTaP,Tdap,and Td Vaccines (2 - Td or Tdap) 06/05/2023 06/04/2013 Depression Screening 02/22/2024 COVID-19 Vaccine (1 - 2023-2 5 season) 2024 Influenza Vaccine (#1) 2024 Cholesterol Screening (Lipid Panel) 11/30/2029 11/30/2024, 12/23/2023 HIB Vaccines Aged Out No longer [...] to complete this topic RSV Immunization Patients Under 20 months Aged Out No longer eligible b ased on patient's age to complete this topic Varicella Vaccines Aged Out No longer eligible based on patient's age to complete this topic Procedures Procedure Name Priority Date/Time Associated Diagnosis Comments CBC WITH AUTO DIFFERENTIAL Routine 11/30/2024 9:58 AM EDT Routine general medical examination at a health care facility Screening for lipoid disorders Screening for diabetes mellitus Avitaminosis D Screening for thyroid disorder Vitamin B12 deficiency anemia URINALYSIS WITH REFLEX MICROSCOPIC Routine 11/30/2024 9:58 AM EDT Routine general medical examination at a health care facility Screening for lipoid disorders Screening for diabetes mellitus Avitaminosis D Screening for thyroid disorder Vitamin B12 deficiency anemia CBC AND DIFFERENTIAL Routine 11/30/2024 9:58 AM EDT Routine general medical examination at a health care facility Screening for lipoid disorders Screening for diabetes mellitus Avitaminosis D Screening for thyroid disorder Vitamin B12 deficiency anemia COMPREHENSIVE METABOLIC PANEL Routine 11/30/2024 9:58 AM EDT Routine general medical examination at a health care facility Screening for lipoid disorders Screening for diabetes mellitus Avitaminosis D Screening for thyroid disorder Vitamin B12 deficiency anemia LIPID PANEL WITH REFLEX TO DIRECT LDL Routine 11/30/2024 9:58 AM EDT Routine general medical examination at a health care facility Screening for lipoid disorders Screening for diabetes mellitus Avitaminosis D Screening for thyroid disorder Vitamin B12 deficiency anemia URINALYSIS WITH REFLEX MICROSCOPIC Routine 11/30/2024 9:58 AM EDT Routine general medical examination at a health care facility Screening for lipoid disorders Screening for diabetes mellitus Avitaminosis D Screening for thyroid disorder Vitamin B12 deficiency anemia HEMOGLOBIN A1C Routine 11/30/2024 9:58 AM EDT Routine general medical examination at a health care facility Screening for lipoid disorders Screening for diabetes mellitus Avitaminosis D Screening for thyroid disorder Vitamin B12 deficiency anemia VITAMIN D 25 HYDROXY Routine 11/30/2024 9:58 AM EDT Routine general medical examination at a health care facility Screening for lipoid disorders Screening for diabetes mellitus Avitaminosis D Screening for thyroid disorder Vitamin B12 deficiency anemia THYROID STIMULATING HORMONE Routine 11/30/2024 9:58 AM EDT Routine general medical examination at a health care facility Screening for lipoid disorders Screening for diabetes mellitus Avitaminosis D Screening for thyroid disorder Vitamin B12 deficiency anemia VITAMIN B12 Routine 11/30/2024 9:58 AM EDT Routine general medical examination at a health care facility Screening for lipoid disorders Screening for diabetes mellitus Avitaminosis D Screening for thyroid disorder Vitamin B12 deficiency anemia ECG 12-LEAD Routine 11/22/2024 4:33 PM EDT Chest pain, unspecified from Last 3 Months Results * (ABNORMAL) Urinalysis with reflex microscopic (11/30/2024 9:58 AM EDT) Specific [place] Urine 1.025 1.003 - 1.030 LAB URINALYSIS - AUTOMATED METHOD 11/30/2024 1:55 PM [facility] pH, Urine 6.0 5.0 - 8.0 pH LAB URINALYSIS - AUTOMATED METHOD 11/30/2024 1:55 PM [facility] Leukocytes, Urine Negative Negative LAB URINALYSIS - AUTOMATED METHOD 11/30/2024 1:55 PM [facility] Nitrite, Urine Negative Negative LAB URINALYSIS - AUTOMATED METHOD 11/30/2024 1:55 PM [facility] Protein, Urine Trace <=Trace mg/dL LAB URINALYSIS - AUTOMATED METHOD 11/30/2024 1:55 PM [facility] Glucose, Urine Negative Negative mg/dL LAB URINALYSIS - AUTOMATED METHOD 11/30/2024 1:55 PM [facility] Ketones, Urine Trace(A) Negative mg/dL LAB URINALYSIS - AUTOMATED METHOD 11/30/2024 1:55 PM [facility] Urobilinogen, Urine 0.2 0.2 - 1.0 mg/dL LAB URINALYSIS - AUTOMATED METHOD 11/30/2024 1:55 PM [facility] Bilirubin, Urine Small(A) Negative LAB URINALYSIS - AUTOMATED METHOD 11/30/2024 1:55 PM EDT [facility] Blood, Urine Negative Negative LAB URINALYSIS - AUTOMATED METHOD 11/30/2024 1:55 PM T [facility] Urine Urine specimen obtained by clean catch procedure / Unknown Non-blood Collection / Unknown 11/30/2024 9:58 AM EDT 11/30/2024 9:58 AM EDT Moon WHELAN LAB URINE ORDERABLES Final R esult [facility] [address] [place] [address], [place] [phone] * (ABNORMAL) Lipid panel with reflex to direct LDL (11/30/2024 9:58 AM EDT) Cholesterol 188 0 - 200 mg/dL LAB CHEMISTRY METHOD 11/30/2024 2:37 PM [facility] Triglycerides 161(H) 0 - 150 mg/dL LAB CHEMISTRY METHOD 11/30/2024 2:37 PM [facility] HDL 44 >=40 mg/dL LAB CHEMISTRY METHOD 11/30/2024 2:37 PM [facility] LDL Calculated 112(H) 0 - 100 mg/dL LAB CHEMISTRY METHOD 11/30/2024 2:37 PM T [facility] Comment:Estimated LDL Calcul ated using equation: Total cholesterol - HDL cholesterol - (Triglycerides/5) VLDL Cholesterol Alex 32.2 mg/dL LAB CHEMISTRY METHOD 11/30/2024 2:37 PM [facility] Non HDL Chol. (LDL+VLDL) 144 <145 mg/dL LAB CHEMISTRY METHOD 11/30/2024 2:37 PM [facility] Chol/HDL Ratio 4.3 0.0 - 4.4 LAB CHEMISTRY METHOD 11/30/2024 2:37 PM EDT [facility] Blood Venous blood specimen / Unknown Venipuncture / Unknown 11/30/2024 9:58 AM EDT 11/30/2024 9:58 AM EDT Moon WHELAN LAB BLOOD ORDERABLES Final R esult [facility] [address] [place] [address], * (ABNORMAL) CBC auto differential (11/30/2024 9:58 AM EDT) WBC 5.1 4.8 - 10.8 K/mcL LAB HEMETOLOGY METHOD 11/30/2024 1:54 PM EDT [facility] RBC 4.60 3.80 - 4.80 M/mcL LAB HEMETOLOGY METHOD 11/30/2024 1:54 PM EDT [facility] Hemoglobin 13.2 11.5 - 16.0 g/dL LAB HEMETOLOGY METHOD 11/30/2024 1:54 PM EDT [facility] Hematocrit 41.9 35.0 - 47.0 % LAB HEMETOLOGY METHOD 11/30/2024 1:54 PM EDT [facility] MCV 92.1 79.0 - 98.0 FL LAB HEMETOLOGY METHOD 11/30/2024 1:54 PM EDT [facility] MCH 29.0 27.0 - 32.0 pcg LAB HEMETOLOGY METHOD 11/30/2024 1:54 PM T [facility] MCHC 31.5(L) 32.0 - 37.0 g/dL LAB HEMETOLOGY METHOD 11/30/2024 1:54 PM EDT [facility] RDW 13.0 11.0 - 15.0 % LAB HEMETOLOGY METHOD 11/30/2024 1:54 PM EDT [facility] Platelets 212 130 - 400 K/mcL LAB HEMETOLOGY METHOD 11/30/2024 1:54 PM EDT [facility] MPV 11.4(H) 7.0 - 11.0 FL LAB HEMETOLOGY METHOD 11/30/2024 1:[facility] NRBC 0.0 <1.0 % LAB HEMETOLOGY METHOD 11/30/2024 1:54 PM [facility] NRBC Absolute 0.00 <0.10 K/mcL LAB HEMETOLOGY METHOD 11/30/2024 1:[facility] Neutrophils Relative 49.2 % LAB HEMETOLOGY METHOD 11/30/2024 1:54 PM [facility] Lymphocytes Relative 39.1 % LAB HEMETOLOGY METHOD 11/30/2024 1:54 PM [facility] Monocytes Relative 8.3 % LAB HEMETOLOGY METHOD 11/30/2024 1:54 PM [facility] Eosinophils Relative 2.4 % LAB HEMETOLOGY METHOD 11/30/2024 1:54 PM [facility] Basophils Relative 0.8 % LAB HEMETOLOGY METHOD 11/30/2024 1:54 PM [facility] Immature Granulocytes Relative 0.2 % LAB HEMETOLOGY METHOD 11/30/2024 1:54 PM [facility] Neutrophils Absolute 2.51 1.50 - 7.00 K/mcL LAB HEMETOLOGY METHOD 11/30/2024 1:54 PM EDT [facility] Lymphocytes Absolute 1.99 1.00 - 5.00 K/mcL LAB HEMETOLOGY METHOD 11/30/2024 1:54 PM [facility] Monocytes Absolute 0.42 0.20 - 1.00 K/mcL LAB HEMETOLOGY METHOD 11/30/2024 1:54 PM T [facility] Eosinophils Absolute 0.12 0.00 - 0.50 K/mcL LAB HEMETOLOGY METHOD 11/30/2024 1:54 PM EDT [facility] Basophils Absolute 0.04 0.00 - 0.20 K/[facility] LAB HEMETOLOGY METHOD 11/30/2024 1:54 PM EDT [facility] Immature Granulocytes Absolute 0.01 0.00 - 0.03 K/[facility] LAB HEMETOLOGY METHOD 11/30/2024 1:54 PM EDT [facility] Blood Venous blood specimen / Unknown Venipuncture / Unknown 11/30/2024 9:58 AM EDT 11/30/2024 9:58 AM EDT Moon Ryderoyle PA LAB BLOOD ORDERABLES Final R esult Performing Organization Address City/[facility]/ZIP Co de Phone Number [facility] [address] [place] [address], [place] [phone] * (ABNORMAL) Vitamin D 25 hydroxy (11/30/2024 9:58 AM EDT) Vit D, 25-Hydroxy 20.9(L) 30.0 - 80.0 ng/mL LAB CHEMISTRY METHOD 11/30/2024 3:00 PM EDT [facility] Blood Venous blood specimen / Unknown Venipuncture / Unknown 11/30/2024 9:58 AM EDT 11/30/2024 9:58 AM EDT Moon Normoyle PA LAB BLOOD ORDERABLES Final R esult Performing Organization Address City/[facility]/ZIP Co de Phone Number [facility] [address] [place] [address], [place] [phone] * Thyroid stimulating hormone (11/30/2024 9:58 AM EDT) TSH 1.73 0.40 - 4.00 mcIU/mL LAB CHEMISTRY METHOD 11/30/2024 3:01 PM EDT [facility] Blood Venous blood specimen / Unknown Venipuncture / Unknown 11/30/2024 9:58 AM EDT 11/30/2024 9:58 AM EDT us Moon Normoyle PA LAB BLOOD ORDERABLES Final R esult Performing Organization Address City/[facility]/ZIP Co de Phone Number [facility] [address] [place] [address], [place] [phone] * Hemoglobin A1c (11/30/2024 9:58 AM EDT) Pathologist [facility] Hemoglobin A1C 5.5 <6.5 % LAB CHEMISTRY METHOD 11/30/2024 9:55 PM EDT [facility] Mean Bld Glu Estim. 111 mg/dL LAB CHEMISTRY METHOD 11/30/2024 9:55 PM EDT [facility] Blood Venous blood specimen / Unknown Venipuncture / Unknown 11/30/2024 9:58 AM EDT 11/30/2024 9:58 AM EDT us Moon Normoyle PA LAB BLOOD ORDERABLES Final R esult Performing Organization Address City/[facility]/ZIP Co de Phone Number [facility] [address] [place] [address], [place] [phone] * (ABNORMAL) Vitamin B12 (11/30/2024 9:58 AM EDT) Vitamin B-12 1,326(H) 250 - 900 pcg/mL LAB CHEMISTRY METHOD 11/30/2024 2:37 PM EDT [facility] Blood Venous blood specimen / Unknown Venipuncture / Unknown 11/30/2024 9:58 AM EDT 11/30/2024 9:58 AM EDT us Moon Normoyle PA LAB BLOOD ORDERABLES Final R esult [facility] [address] [place] [address], * Comprehensive metabolic panel (11/30/2024 9:58 AM EDT) Sodium 141 133 - 145 mmol/L LAB CHEMISTRY METHOD 11/30/2024 2:37 PM EDT [facility] Potassium 4.2 3.5 - 5.5 mmol/L LAB CHEMISTRY METHOD 11/30/2024 2:37 PM [facility] Chloride 106 96 - 110 mmol/L LAB CHEMISTRY METHOD 11/30/2024 2:37 PM [facility] CO2 27 21 - 32 mmol/L LAB CHEMISTRY METHOD 11/30/2024 2:37 PM [facility] Anion Gap 8 3 - 11 LAB CHEMISTRY METHOD 11/30/2024 2:37 PM [facility] Glucose 89 70 - 100 mg/dL LAB CHEMISTRY METHOD 11/30/2024 2:37 PM [facility] BUN 17 5 - 25 mg/dL LAB CHEMISTRY METHOD 11/30/2024 2:37 PM [facility] Creatinine 0.87 0.50 - 1.10 mg/dL LAB CHEMISTRY METHOD 11/30/2024 2:37 [facility] eGFR 79 >=60 mL/min/1. 73m2 LAB CHEMISTRY METHOD 11/30/2024 2:37 PM [facility] Comment:Calculation based on the Chronic Kidney Disease Epidemiology Collaboration (CKD-EPI) equation refit without adjustment for race. BUN/Creatinine Ratio 19.5 LAB CHEMISTRY METHOD 11/30/2024 2:37 PM [facility] Calcium 9.2 8.5 - 10.5 mg/dL LAB CHEMISTRY METHOD 11/30/2024 2:37 PM [facility] AST (SGOT) 26 10 - 42 unit/L LAB CHEMISTRY METHOD 11/30/2024 2:37 PM EDT [facility] ALT (SGPT) 50 10 - 60 unit/L LAB CHEMISTRY METHOD 11/30/2024 2:37 PM EDT [facility] Alkaline Phosphatase 110 42 - 121 unit/L LAB CHEMISTRY METHOD 11/30/2024 2:37 PM EDT [facility] Total Protein 6.9 6.0 - 8.0 g/dL LAB CHEMISTRY METHOD 11/30/2024 2:37 PM EDT [facility] Albumin 4.1 3.2 - 5.0 g/dL LAB CHEMISTRY METHOD 11/30/2024 2:37 PM EDT [facility] Total Bilirubin 0.8 0.0 - 1.4 mg/dL LAB CHEMISTRY METHOD 11/30/2024 2:37 PM EDT [facility] Blood Venous blood specimen / Unknown Venipuncture / Unknown 11/30/2024 9:58 AM EDT 11/30/2024 9:58 AM EDT Moon WHELAN LAB BLOOD ORDERABLES Final R esult [facility] [address] [place] [address], * ECG 12 lead (11/22/2024 4:33 PM EDT) Ventricular Rate ECG 71 BPM GEMUSE Atrial Rate 71 BPM GEMUSE P-R Interval 142 ms GEMUSE QRS Duration 86 ms GEMUSE Q-T Interval 414 ms GEMUSE QTc 449 ms GEMUSE P Wave [place] 58 degrees GEMUSE R [place] 42 degrees GEMUSE T [place] 46 degrees GEMUSE ECG Interpretation Normal sinus rhythm with sinus arrhythmia Normal ECG When compared with ECG of 15-MAY-2009 12:30, No significant change was found Confirmed by MIKE BARRAGAN ([id number]) on 11/22/2024 6:07:04 PM GEMUSE 11/22/2024 4:33 PM EDT 11/22/2024 6:07 PM EDT us Moon WHELAN ECG ORDERABLES Final Result GEMUSE from Last 3 Months Insurance [facility] Care Teams Van Cdl Driver Relationship Specialty Start Date End Date Carrie Penny PA [address] [facility] [address] [place] [address] PCP - General Primary Care 01/17/24
--- OUTSIDE RECORDS SUMMARY | 2024-12-26 12:56 | XMS_ITS | Data Portability ---
Author Organization [place] [facility] Darlin [facility] [place] Address [address] [place] [address] Care Team Providers Care Welding Machine Operator Plasma Arc Name Role Phone SUSANNE AVERY Primary Care [...] is currently under the care of a food specialist who is considering bracing her due [...] CD- No prior auth required 2022 023 [email or web address] [facility], [address] [place], [address], 3 11:32:22 Medication Orders None recorded. Patient [...] Name and Address Organization Details Recorded Time Problem 99821243 Active No known active problems Not Available [facility] 5 00:32:03 Body mass index 30+ - obesity 963711157 Active 2020 Obesity (BMI 30-39.9) Not Available [facility] 5 00:32:02 Osteoarth ritis of right hip joint 37775575288 9107 Active 2022 ZAID PERDOMO PA-C [address] [facility],[place] [address], [place], [address] , [place] [facility] 3 13:13:01 Pain of hip region 33270379 Active 2022 ZAID PERDOMO PA-C [address] [facility] [address], [place], [address] , [place] [facility] 3 07:56:31 Pain of hip region 60235670 Active 2022 ZAID PERDOMO PA-C [address] [place] [address],[facility] [address], [place], [address] , [place] [facility] 3 07:56:41 Palpitati ons 82680429 Active 2022 Palpitati ons Not Available [facility] 5 00:32:02 Chronic ankle pain 68468803677 109 Active 2022 Chronic pain of right ankle Not Available [facility] 5 00:32:01 Anti-nucl ear factor detected 696326691 Active 2022 Positive FRANKLIN (antinucl ear antibody) Not Available [facility] 5 00:32:01 Pain in bilateral feet 26331147449 965966 Active 2022 Pain in both feet Not Available [facility] 5 00:32:01 Chest discomfor t 030412230 Active 2022 Left chest pressure Not Available [facility] 5 00:32:01 Dyspnea 096548098 Active 2022 SOB (shortnes s of breath) Not Available [facility] 5 00:32:02 Pain in right foot 63951943180 9107 Active 2022 Right foot pain Not Available [facility] 5 00:32:02 Chronic low back pain 186609896 Active 2022 Chronic bilateral low back pain with bilateral sciatica Not Available [facility] 5 00:32:02 Generaliz ed osteoarth ritis 281147901 Active 2023 Generaliz ed osteoarth ritis Not Available [facility] 5 00:32:02 Problem Notes None recorded. Procedures Surgical History Date Name Laterality Status Provider Name and Address Organization Details Recorded Time 02/21/19 21 Total knee arthroplasty completed Kelly Bello [facility] 06/07/2022 15:30:19 02/21/19 11 procedure on back completed Kelly Bello [facility] 06/07/2022 15:29:34 02/21/19 11 Ligation of hemorrhoid(s) completed Kelly Bello [facility] 06/07/2022 15:29:48 02/21/19 08 [facility] 06/07/2022 15:30:01 02/21/18 86 [facility]22 15:30:08 Imaging Results None recorded. Procedure Notes None recorded. Medical Equipment None Reported. Allergies No known drug allergies Medications Name Sig Start Date Stop Date Status Note LastModified by Organization Details LastModified Time amoxicillin 500 mg capsule TAKE 4 CAPSULES ONE HOUR PRIOR TO DENTAL PROCEDURE active Not Available Not Available No t Available methocarbam ol 500 mg tablet TAKE 1 TABLET BY MOUTH EVERY 6 HOURS NEEDED. 2023 active Not Available Not Available Not Avai lable buspirone 5 mg tablet Take 1 tablet (5 mg total) by mouth 2 (two) times a day. 2022 active Not Available Not Available Not Avai lable hydrocortis one valerate 0.2 % topical cream APPLY TO AFFECTED AREA TWICE A DAY NEEDED active Not Available Not Available No t Available meloxicam 15 mg tablet Take 1 tablet (15 mg total) by mouth daily as needed for pain for up to 30 days. 12/19 completed Not Available Not Available Not Available ondansetron HCl 4 mg tablet Take 1-2 tablets (4-8 mg total) by mouth every 8 (eight) hours as needed for nausea for up to 14 days. 01/16 completed Not Available Not Available Not Available prednisone 20 mg tablet TAKE 2 TABLETS EVERY DAY BY ORAL ROUTE WITH MEALS FOR 7 DAYS. active Not Available Not Available No t Available sennosides 8.6 mg-docusate sodium 50 mg tablet Take 1 tablet by mouth 2 (two) times a day for 30 days. For constipat ion while taking opioid medicatio ns. Can discontin ue once no longer taking opioids. 02/01 completed Not Available Not Available Not Available methylpredn isolone 4 mg tablet follow package direction s 11/16 completed Not Available Not Available Not Available peg-electro lyte solution 420 gram oral solution TAKE 8 OUNCE BY MOUTH DIRECTED PATIENT TO FOLLOW INSTRUCTI ONS GIVEN AT THE DR'S OFFICE 06/07 completed Not Available Not Available Not Available aspirin 81 mg tablet,maren yed release Take 1 tablet (81 mg total) by mouth 2 (two) times a day for 28 days. For DVT prophylax is. 01/30 completed Not Available Not Available Not Available tramadol 50 mg tablet Take 50 mg by mouth every 8 (eight) hours as needed for pain or severe pain (7-10). 2022 active Not Available Not Available Not Avai lable acetaminoph en 500 mg tablet Take 2 tablets (1,000 mg total) by mouth every 8 (eight) hours for 28 days. 01/30 completed Not Available Not Available Not Available methocarbam ol 750 mg tablet Take 1 tablet (750 mg total) by mouth 4 (four) times a day as needed for up to 14 days. 01/16 completed Not Available Not Available Not Available pantoprazol e 40 mg tablet,maren yed release Take 1 tablet (40 mg total) by mouth every morning before breakfast . 11/16 completed Not Available Not Available Not Available lidocaine 5 % topical patch Place 1 patch onto the skin daily. Remove & Discard patch within 12 hours or as directed by 2023 active Not Available Not Available Not Avai lable diclofenac potassium 50 mg tablet TAKE 1 TABLET BY MOUTH 2 TIMES DAILY NEEDED (JOINT PAIN). TAKE WITH FOOD active Not Available Not Available No t Available diclofenac sodium 75 mg tablet,maren yed release Take 1 tablet (75 mg total) by mouth 2 (two) times a day. 2023 active Not Available Not Available Not Avai lable montelukast 10 mg tablet TAKE 1 TABLET BY MOUTH EVERYDAY AT BEDTIME active Not Available Not Available No t Available gabapentin 100 mg capsule Take 1 capsule (100 mg total) by mouth 3 (three) times a day. 2023 active Not Available Not Available Not Avai lable methylpredn isolone 4 mg tablets in a dose pack TAKE 6 TABLETS ON DAY 1 DIRECTED ON PACKAGE AND DECREASE BY 1 TAB EACH DAY FOR A TOTAL OF 6 DAYS 06/07 completed Not Available Not Available Not Available albuterol sulfate HFA 90 mcg/actuati on aerosol inhaler Inhale 2 puffs into the lungs every 6 (six) hours as needed for wheezing. active Not Available Not Available No t Available loratadine 10 mg tablet TAKE 1 TABLET BY MOUTH EVERY DAY active Not Available Not Available No t Available oxycodone 5 mg tablet Take 1 tablet (5 mg total) by mouth every 6 (six) hours as needed for pain. 02/18 completed Not Available Not Available Not Available cyclobenzap rine 5 mg tablet TAKE 1 TABLET BY MOUTH THREE TIMES A DAY NEEDED FOR MUSCLE SPASMS 2022 active Not Available Not Available Not Avai lable loratadine 10 mg capsule Take 1 tablet by mouth. 11/16 completed Not Available Not Available Not Available Combivent Respimat 20 mcg-100 mcg/actuati on solution for inhalation INHALE 2 PUFFS 3 TIMES DAILY NEEDED FOR SHORTNESS OF BREATH/WH EEZE 11/16 completed Not Available Not Available Not Available Vitals Date Recorded Body weight Heart rate Body mass index (BMI) Body height Oxygen saturation Oxygen saturation in Arterial blood by Pulse oximetry Systolic And Diastolic Provider Name and Address Organization Details Last Updated DateTime 4 57679 g 90 /min 40.25 kg/m2 154.9 cm 97 % 97 % 126/70 mm[Hg] Not Available [facility] 5 01:03:21 Date Recorded Respiratory rate Provider Name a nd Address Organization Details Last Updated DateTime 11/30/2022 16 /min Not Available [facility] 5 01:03:21 Social History None recorded. Functional Status None recorded. Mental Status None recorded. Family History Relationship Description Onset Age of this Age Resolved Age Notes LastModified by Organization Details LastModified Time Mother Arthritis [email or web address] Not availa ble 06/07/2022 15:30:29 Mother Hyperlipidem ia [email or web address] Not available 06/07 15:30:38 Mother Heart murmur [email or web address] Not jarret ilable 06/07/2022 15:30:53 Mother Disorder of thyroid gland [email or web address] Not available 06/07 15:31:18 Father Arthritis [email or web address] Not availa ble 06/07/2022 15:31:28 Sister Arthritis [email or web address] Not availa ble 06/07/2022 15:31:30 Sister Irritable bowel syndrome [email or web address] Not available 06/07 15:31:42 Brother Diabetes mellitus [email or web address] Not available 06/07 15:31:48 Maternal Grandmother Dementia Not available 15:31:59 Maternal Grandfather Angina pectoris [email or web address] Not available 06/07 15:32:09 Medical History Condition Response Anxiety Disorder Y Arthritis Y Reflux/GERD Y Asthma Y Sleep Apnea Y Gynecological HistoryNo gynecological history recorded. Obstetrics History GPAL:G 0 P 0 0 0 0 Past Encounters Encounter ID Performer Location Encounter Start Date Encounter Closed Date Diagnosis/Indication Diagnosis SNOMED-CT Code Diagnosis ICD10 Code Diagnosis IMO Codes Diagnosis Note [id number] [facility] [address] [facility] [address] [place] [address] 06/07/2022 15:21:12 06/07/2022 15:56:20 Osteoarthritis of right hip joint 8745159283 06187 M16.11 [id number] LIBBY MARTINS [facility] [address] [facility] [address] [place] [address] 06/21/2022 15:10:36 06/21/2022 16:43:41 Pain of hip region 04793868 M25.559 Health Concerns Section Related Observation LastModified by Organization Detai ls LastModified Time None Recorded Concern Status LastModified by Organization Details LastModified Time None Recorded Advance Directives Directive None Recorded Payers Insurance Date Sequence Insurance Name Policy Number Policy Mercado Covered Member ID Mercado Member ID Guarantor Name 07/06/2022 1 [facility] [id number] Sue Dugan [id number] Sue Dugan Notes Date Note Type Note Provider Name and Address Organization Details Recorded Time 06/07/2022 text/html Assessment and Plan: 3Diagnosis #1 bilateral iliotibial band syndromeI had [...] for repeat clinical exam. She does take xtmz-kku-oliydak pain medication which will give her some [...] to the primary care for referral. 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 ZAID PERDOMO PA-C [address] [place] [address], [address], [place] [facility] 06/07/2022 16:00:07 06/21/2022 text/html Assessment / Plan: Date of visit [id number]-sbyp-aeo female following up after treatment with physical [...] is currently under the care of a food specialist who is considering bracing her due [...] for her polyarthralgia throughout her body. 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 Patient states still having ongoing groin pain. As stated above history of chiropractic manipulation. She is seen her food specialist who is working her up for rheumatological pathology. She denies any urinary or bowel changes denies saddle anesthesia. I personally reviewed the imaging studies conducted [facility] [address] [place] [address] Patient: KIMSUE Mtz./Age/Sex: 1970 - 52 - FUnit#: [id number] [facility]/REG CLIAccount#: [id number] Mnemonic/Ordering Site: HIPRTWO/SPMAINOrdering Physician: ZAID PERDOMO MR Hip RT WO - 06/08/22 -MRI of the right hip June 08, 2022 at 1947 hoursClinical History: Right hip osteoarthritis, chronic right hip pain.Technique: Multiplanar multiecho sequences through the right hip wereobtained without intravenous gadolinium.Axial: T1, V7Iptlvjwp: L6Soxbgcd: T1, T2Hniezoikeb: None.Findings:Evidence of significant osteophytic changes of visualized [...] JANG MDElectronically Signed by: JOHNY JANG [facility] Date/Time: 06/09/22 0803Sign date/Time: 06/09/22 0803 ZAID PERDOMO PA-C [address] [place] [address], [address], [place] [facility] 06/22/2022 07:57:05 OBGyn Episode No OBEpisode recorded.
--- OUTSIDE RECORDS SUMMARY | 2024-12-26 12:56 | XMS_ITS | Patient Health Record ---
Author Organization [facility] Address [address] [facility] [address] [place] [address] Care Team Providers Care Transportation Escort Name Role Phone Carrie Penny Primary Care Provider JEF David Unavailable [phone] Allergies No Known Allergies Reason For Referral No Information Medications Medication SIG (Take, Route, Frequency, Duration) Notes Start Date End Date Status Pantoprazole Sodium 40 MG 1 tablet Orall y Once a day Active Hydrocortisone Valerate 0.2 % 1 application Externally Once a day Not-Taking Acetaminophen 325 MG 1 tablet as needed Orally every 4 hrs Not-Taking tiZANidine HCl 4 MG 1 tablet as needed Orally Three times a day Not-Taking Azelastine HCl 137 MCG/SPRAY 2 sprays in each nostril Nasally Twice a day Not-Taking Fluticasone Propionate 50 MCG/ACT 1 spray in each nostril Nasally Twice a day Not-Taking predniSONE 2.5 MG TAKE 4 TABS DAILY X 2 WEEKS THEN 2 TABS ONCE DAILY FOR 2 WEEKS THEN 1 TAB DAILY FOR 2 WEEKS; Duration: 30 Active Albuterol Sulfate 108 (90 Base) MCG/ACT 2 puffs as needed Inhalation every 4 hrs Active busPIRone HCl 5 MG 1 tablet Orally Twic e a day Active Diclofenac Sodium 50 MG 1 tablet as need ed Orally Twice a day Active Montelukast Sodium 10 MG 1 tablet Orally Once a day Active Claritin 10 MG 1 tablet Orally Once a day Active Problems Problem Type SNOMED Code ICD Code Onset Dates Problem Status W/U Status Risk Notes Problem Localized, primary osteoarthritis of the ankle and/or foot (836435353) Primary osteoarthrit is, right ankle and foot (M19.071) Active confirmed Problem Localized, primary osteoarthritis of the ankle and/or foot (396339177) Primary osteoarthrit is, left ankle and foot (M19.072) Active confirmed Encounters Encounter Location Date Provider Diagnosis [facility] [address] [address] 09/05/2024 JEF CHAVARRIA [facility] [address] [address] 10/05/2024 JEF CHAVARRIA Plan Of Treatment Pending Test Test Name Order Date X ray : Foot, left 3v 05/31/2022 X ray : Foot, right 3v 05/31/2022 Insurance Providers Payer Name Payer Address Payer Phone Subscriber Number Group Number Insured Name Patient Relationship to Insured Coverage Start Date Coverage End Date [facility] [address] [place] [address] [id number] Sue Dugan Self - patient is the insured Medical (General) History Medical History History ICD Code fatty liver obstructive sleep apnea snoring obesity cough sinusitis GERD without esophagitis irritable bowel syndrome generalized osteoarthritis of multiple s ites DJD (degenerative joint disease) of knee panic disorder without agoraphobia spondylosis of cervical region without m yelopathy or radiculopathy allergic rhinitis depression internal hemorrhoids + COVID 2020 not COVID vaccinated Surgical History Surgery Date(Month/Year) back surgery- lumbar laminectomy 2009 tonsillectomy and adenoidectomy- due to recurrent infections 1985 DC arthroscopy aid [place] spine & FX knee W/O FIXJ (bilateral)- Dr. Christine 1996 DC arthrp knee condyle & kathy tu medial & lat compartments (right)- Dr. Erickson 06/23/2020 DC arthrp knee condyle & kathy tu medial & lat compartments (left)- Dr. Akins 01/06/2021 Hospitalization History Reason Date(Month/Year) left knee replacement 01/06/2021 right knee replacement 06/23/2020 back surgery 2010 fracture knee 1996 tonsillectomy and adenoidectomy 1985
--- OUTSIDE RECORDS SUMMARY | 2024-12-26 12:57 | XMS_ITS | Encounter Summary ---
Author Organization [facility] Address [address] [place] [address] Phone Care Team Providers Care Pharmaceutical Sales Representative Name Role Phone Silvino Dsouza MD Primary Care Provider [phone]- [phone] Reason for Referral * Physical Therapy (Routine) - Closed Specialty Diagnoses / Procedures Referred By Lino gruber Referred To Contact Physical Therapy Diagnoses Diarrhea, unspecified type Incontinence of feces, unspecified fecal incontinence type System, Provider Not In, [facility] [id number] [place] [address] Phone: tel: Referral ID Status Reason Start Date Expiration Date Visits Re quested Visits Authorized [id number] Closed 02/01/2018 02/01/2019 30 30 Encounter Details Date Type Department Care Team (Latest Contact Info) Description 02/01/2018 Transcribe Orders [facility] [address] [place] [address] Carolina Messer MD [address] [address] Diarrhea, unspecified type (Primary Dx); Incontinence of feces, unspecified fecal incontinence type Social History Tobacco Use Types Packs/Day Years Used Date Smoking Tobacco: Never Assessed Comments Unknown Sex and Gender Information Value Date Recorded Sex Assigned at Not on file Legal Sex Female 4:41 PM EST Gender Identity Not on file Sexual Orientation Not on file documented as of this encounter Plan of Treatment Not on file documented as of this encounter Procedures Procedure Name Priority Date/Time Associated Diagnosis Comments AMB REFERRAL TO [facility] PHYSICAL THERAPY Routine 03/16/2018 5:20 PM EST Diarrhea, unspecified type Incontinence of feces, unspecified fecal incontinence type documented in this encounter Results * Ambulatory referral to [facility] Physical Therapy (03/16/2018 5:20 PM EST) us Provider Not In System PhD AMB [facility] REFERRALS Fin al Result documented in this encounter Visit Diagnoses Diagnosis Diarrhea, unspecified type- Primary Incontinence of feces, unspecified fecal incontinence type documented in this encounter Care Teams Pharmaceutical Sales Representative Relationship Specialty Start Date End Date Silvino Dsouza MD PCP - General Internal Medicine 01/26/18 documented as of this encounter Additional Source Comments The information contained in this document represents components of the legal health record. It is not the complete legal health record.[facility]
--- OUTSIDE RECORDS SUMMARY | 2024-12-26 12:57 | XMS_ITS | Clinical Summary ---
Author Organization [facility] Address [address] [facility] [address] [place] [address] Phone Care Team Providers Care Head Custodian Name Role Phone Silvino Dsouza MD Primary Care Provider [phone]- [phone] Social History Tobacco Use Types Packs/Day Years Used Date Smoking Tobacco: Never Assessed Education Answer Date Recorded Are you interested in more education? Not on gab e 06/18/2022 Are you concerned about learning? Not on file 06/18/2022 No 06/18/2022 No 06/18/2022 Digital Access Answer Date Recorded No 07/20/2022 No 07/20/2022 No 07/20/2022 Reliable internet access at home? Not on file 07/20/2022 Device with a working camera? Not on file Comments Unknown Sex and Gender Information Value Date Recorded Sex Assigned at Not on file Legal Sex Female 4:41 PM EST Gender Identity Not on file Sexual Orientation Not on file Plan of Treatment Health Maintenance Due Date Last Done Comments Adult Td,Tdap Booster 1970 LIPID PANEL 1970 DEPRESSION SCREENING 1981 SMOKING Hx and SMOKELESS TOB ACCO SCREENING 1982 HEPATITIS C SCREENING 1987 HIV ONE-TIME SCREENING (18-6 5 YEARS) 1987 PAP SMEAR 1990 MAMMOGRAM 2009 COLOGUARD 2014 COLONOSCOPY 2014 COLORECTAL CANCER SCREENING 2014 FIT TEST 2014 FOBT 2014 SIGMOIDOSCOPY 2014 VIRTUAL COLONOSCOPY 2014 PNEUMOCOCCAL VACCINES (50+ y ears) (1 of 1 - PCV) 2019 ZOSTER VACCINES (1 of 2) 2019 INFLUENZA VACCINE (#1) 2024 COVID-19 VACCINE ( - 2024-2 6 season) 2024 RSV VACCINE (1 - 1-dose 75+ series) 2044 HEPATITIS A VACCINES Aged Out No long er eligible based on patient's age to complete this topic HIB VACCINES Aged Out No longer eligi ble based on patient's age to complete this topic MENINGOCOCCAL VACCINES (ACWY) Aged Out No longer eligible based on patient's age to complete this topic MENINGOCOCCAL VACCINES (B) Aged Out N o longer eligible based on patient's age to complete this topic Medical Devices Not on file Insurance PPO [employer] OUT OF STATE PPO [place] [place] OUT OF STATE PPO [facility] PPO [employer]UE [place] OUT OF STATE PPO BL[employer] [place] OUT OF STATE PPO BLUE [place] OUT OF STATE O [facility] OUT OF STATE PPO Care Teams Head Custodian Relationship Specialty Start Date End Date Silvino Dsouza MD PCP - General Internal Medicine 01/26/18 Additional Source Comments The information contained in this document represents components of the legal health record. It is not the complete legal health record.[facility]
--- OUTSIDE RECORDS SUMMARY | 2024-12-26 12:57 | XMS_ITS | Encounter Summary ---
Author Organization [facility] Address [address] [place] [address] Phone Care Team Providers Care Fence Gate Assembler Name Role Phone Silvino Dsouza MD Primary Care Provider [phone]- [phone] Reason for Referral * Physical Therapy (Routine) - Closed Specialty Diagnoses / Procedures Referred By Lino gruber Referred To Contact Physical Therapy Diagnoses Deep dyspareunia System, Provider Not In, PhD [id number] [place] [address] Phone: tel: Referral ID Status Reason Start Date Expiration Date Visits Re quested Visits Authorized [id number] Closed 02/01/2018 02/01/2019 1 1 Encounter Details Date Type Department Care Team (Latest Contact Info) Description 02/01/2018 Transcribe Orders [facility] [address] [place] [address] Sharonda Nguyen, SENIOR PATIENT ACCOUNT REPRESENTATIVE [address] [place] [address] [phone] Deep dyspareunia (Primary Dx) Social History Tobacco Use Types Packs/Day Years Used Date Smoking Tobacco: Never Assessed Comments Unknown Sex and Gender Information Value Date Recorded Sex Assigned at Not on file Legal Sex Female 4:41 PM EST Gender Identity Not on file Sexual Orientation Not on file documented as of this encounter Plan of Treatment Scheduled Referrals Name Type Priority Associated Diagnoses Orde r Schedule Ambulatory referral to [facility] Physical Therapy Outpatient Referral Routine Deep dyspareunia Ordered: 02/01/2018 documented as of this encounter Visit Diagnoses Diagnosis Deep dyspareunia- Primary documented in this encounter Care Teams Fence Gate Assembler Relationship Specialty Start Date End Date Silvino Dsouza MD PCP - General Internal Medicine 01/26/18 documented as of this encounter Additional Source Comments The information contained in this document represents components of the legal health record. It is not the complete legal health record.[facility]
--- OUTSIDE RECORDS SUMMARY | 2024-12-26 12:57 | XMS_ITS | Patient Health Record ---
Author Organization [facility] [address] [address] Address [address] [place] [address] Care Team Providers Care Data Processing Supervisor Name Role Phone DONNIE AVERY Primary Care Provider FELIX Vo Unavailable [phone] LauraAntonyMoon Unavailable [phone] Allergies No Known Allergies Results Component Value Reference Range Notes URINALYSIS WITH REFLEX MICRO SCOPIC Reviewed date:12/04/2024 04:23:46 PM Interpretation: Performing Lab: Notes/Report: Specific [place] Urine 1.025 1.003-1.030 pH, Urine 6.0 5.0-8.0 pH Leukocytes, Urine Negative Negative Nitrite, Urine Negative Negative Protein, Urine Trace <=Trace mg/dL Glucose, Urine Negative Negative mg/dL Ketones, Urine Trace Negative mg/dL Urobilinogen, Urine 0.2 0.2-1.0 mg/dL Bilirubin, Urine Small Negative Blood, Urine Negative Negative CBC WITH AUTO DIFFERENTIAL Reviewed date:12/04/2024 04:23:46 PM Interpretation: Performing Lab: Notes/Report: WBC 5.1 4.8-10.8 K/mcL RBC 4.60 3.80-4.80 M/mcL Hemoglobin 13.2 11.5-16.0 g/dL Hematocrit 41.9 35.0-47.0 % MCV 92.1 79.0-98.0 FL MCH 29.0 27.0-32.0 pcg MCHC 31.5 32.0-37.0 g/dL RDW 13.0 11.0-15.0 % Platelets 212 130-400 K/mcL MPV 11.4 7.0-11.0 FL NRBC 0.0 <1.0 % NRBC Absolute 0.00 <0.10 K/mcL Neutrophils Relative 49.2 Lymphocytes Relative 39.1 Monocytes Relative 8.3 Eosinophils Relative 2.4 Basophils Relative 0.8 Immature Granulocytes Relative 0.2 Neutrophils Absolute 2.51 1.50-7.00 K/mcL Lymphocytes Absolute 1.99 1.00-5.00 K/mcL Monocytes Absolute 0.42 0.20-1.00 K/mcL Eosinophils Absolute 0.12 0.00-0.50 K/mcL Basophils Absolute 0.04 0.00-0.20 K/mcL Immature Granulocytes Absolute 0.01 0.00-0.03 K/mcL HEMOGLOBIN A1C Reviewed date:12/04/2024 04:23:46 PM Interpretation: Performing Lab: Notes/Report: Hemoglobin A1C 5.5 <6.5 % Mean Bld Glu Estim. 111 COMPREHENSIVE METABOLIC PANE L Reviewed date:12/04/2024 04:23:46 PM Interpretation: Performing Lab: Notes/Report: Sodium 141 133-145 mmol/L Potassium 4.2 3.5-5.5 mmol/L Chloride 106 96-110 mmol/L CO2 27 21-32 mmol/L Anion Gap 8 3-11 Glucose 89 70-100 mg/dL BUN 17 5-25 mg/dL Creatinine 0.87 0.50-1.10 mg/dL eGFR 79 >=60 mL/min/1.73m2 Calculati on based on the Chronic Kidney Disease Epidemiology Collaboration (CKD-EPI) equation refit without adjustment for race. BUN/Creatinine Ratio 19.5 Calcium 9.2 8.5-10.5 mg/dL AST (SGOT) 26 10-42 unit/L ALT (SGPT) 50 10-60 unit/L Alkaline Phosphatase 110 42-121 unit/L Total Protein 6.9 6.0-8.0 g/dL Albumin 4.1 3.2-5.0 g/dL Total Bilirubin 0.8 0.0-1.4 mg/dL THYROID STIMULATING HORMONE Reviewed date:12/04/2024 04:23:46 PM Interpretation: Performing Lab: Notes/Report: TSH 1.73 0.40-4.00 mcIU/mL VITAMIN D 25 HYDROXY Reviewed date:12/04/2024 04:23:46 PM Interpretation: Performing Lab: Notes/Report: Vit D, 25-Hydroxy 20.9 30.0-80.0 ng/mL VITAMIN B12 Reviewed date:12/04/2024 04:23:46 PM Interpretation: Performing Lab: Notes/Report: Vitamin B-12 1326 250-900 pcg/mL LIPID PANEL WITH REFLEX TO D IRECT LDL Reviewed date:12/04/2024 04:23:46 PM Interpretation: Performing Lab: Notes/Report: Cholesterol 188 0-200 mg/dL Triglycerides 161 0-150 mg/dL HDL 44 >=40 mg/dL LDL Calculated 112 0-100 mg/dL Estimated LDL Calculated using equation: Total cholesterol - HDL cholesterol - (Triglycerides/5) VLDL Cholesterol Alex 32.2 Non HDL Chol. (LDL+VLDL) 144 <145 mg/dL Chol/HDL Ratio 4.3 0.0-4.4 Reason For Referral No Information Medications Medication SIG (Take, Route, Frequency, Duration) Notes Start Date End Date Status Albuterol Sulfate HFA 108 (90 Base) MCG/ACT 1 puff as needed Inhalation every 4 hrs 10/16/2024 Active Pantoprazole Sodium 40 MG 1 tablet 1/2 t o 1 hour before morning meal Orally Once a day Active Zepbound 2.5 MG/0.5ML 0.5 mL Subcutaneou s weekly; Duration: 30 days Active Methocarbamol 500 MG 1.5 tablets Orally every 4 hrs Active Diclofenac Potassium 50 MG 1 tablet with food or milk as needed Orally Twice a day Active Gabapentin 100 MG 1 capsule at bedtime Orally 3 times a day Active busPIRone HCl 5 MG 1 tablet Orally Twic e a day Active Social History Tobacco Use: Social History Observation Description Date Details (start date - stop date) Never Smoker NA - NA Tobacco Control (Standard) Question Answer Notes Tobacco use: Nonsmoker Section Notes: Patient does not live alone nor has any living situation denies tobacco use etoh socially Problems Problem Type SNOMED Code ICD Code Onset Dates Problem Status W/U Status Risk Notes Problem Morbid obesity (025043726) Morbid obesity (E66.01) Active confirmed Problem Body mass index 40+ - morbidly obese (836227435) BMI 40.0-44.9, adult (Z68.41) Active confirmed Problem Fatty liver (188227527) Fatty liver disease, nonalcoholic (K76.0) Active confirmed Problem Obese class II (961730434323525) BMI 39.0-39.9,adult (Z68.39) Active confirmed Problem Vitamin B>12< deficiency anaemia (39522268) Anemia due to vitamin B12 deficiency, unspecified B12 deficiency type (D51.9) Active confirmed Problem Gastroesophageal reflux disease (910482453) GERD without esophagitis (K21.9) Active confirmed Problem Avitaminosis D (25869816) Avitaminosis D (E55.9) Active confirmed Problem Asthma (307742612) Asthma (J45.909) Active conf irmed Problem Obstructive sleep apnea syndrome (13743671) ANDREA on CPAP (G47.33) Active confirmed Problem Osteoarthritis (385490565) Osteoarthritis (M19.90) Active confirmed Problem Obesity (196520876) Moderate obe sity (E66.9) Active confirmed Vital Signs Heart Rate 86 /min 11/22/2024 Oximetry 98 % 11/22/2024 Blood pressure diastolic 82 mm Hg 11/22/2024 Height 61 in 11/22/2024 Blood pressure systolic 124 mm Hg 11/22/2024 Weight 210.4 lbs 11/22/2024 BMI 39.75 kg/m2 11/22/2024 Encounters Encounter Location Date Provider Diagnosis [facility] [address] [address] 10/16/2024 Moon Normoyle Morbid obesity E66.0 1 ; BMI 40.0-44.9, adult Z68.41 ; Dietary counseling and surveillance Z71.3 ; Fatty liver disease, nonalcoholic K76.0 ; GERD without esophagitis K21.9 ; ANDREA on CPAP G47.33 ; Osteoarthritis M19.90 ; Asthma J45.909 and Encounter for examination of blood pressure without abnormal findings Z01.30 [facility] [address] [address] 11/22/2024 Moon Normoyle Moderate obesity E66 .9 ; BMI 39.0-39.9,adult Z68.39 ; Dietary counseling and surveillance Z71.3 ; Fatty liver disease, nonalcoholic K76.0 ; GERD without esophagitis K21.9 ; ANDREA on CPAP G47.33 ; Osteoarthritis M19.90 ; Asthma J45.909 ; Encounter for examination of blood pressure without abnormal findings Z01.30 and Epigastric pain R10.13 [facility] [address] [address] 10/16/2024 Moon Normoyle Morbid obesity E66.[address] [facility] [address] [place] [address] 10/25/2024 FELIX MARIA TERESA [facility] [address] [place] [address] 10/29/2024 FELIX MARIA TERESA [facility] [address] [place] [address] 10/30/2024 Moon Normoyle Morbid obesity E66.0 1 and ANDREA on CPAP G47.33 [facility] [address] [place] [address] 12/10/2024 FELIX MOREL Assessments Encounter Date Diagnosis (ICD Code) Assessment Notes Treatment Notes Treatment Clinical Notes Section Notes 10/16/2024 Morbid obesity (ICD-10 - E66.01) Sue is a 54-year-old female with past medical history of obesity, arthritis, fatty liver, and asthma who management consult. Medical history, labs, allergies, medications, and social history reviewed with the patient. Provided education on healthy diet and lifestyle which includes high-protein, low carbohydrate, high-fiber, and a variety of fruits and vegetables. Patient encouraged to exercise with emphasis on resistance training minimum 3 times per week to maintain muscle mass and cardio to burn fat. All patient questions answered. Patient will follow-up in 4 weeks for weight management. #Morbid obesity: Weight today 214.5 pounds, BMI 40.5. She exercises by playing volleyball and softball twice per week, she mostly focuses on home-cooked meals with protein and vegetables, discussed switching out gym eating breakfast sandwich for her protein shake or smoothie. Discussed weight loss medications. Given MASH, plan for Wegovy 0.25 mg weekly injections. Educated on side effects including nausea, constipation, reflux, heartburn, hair thinning. Will submit PA today. Follow-up in 4 weeks. #MASH: Follows with PCP. Discussed exercise, diet, hydration goals. Plan for Wegovy 0.25 mg weekly injections #ANDREA: Continue nocturnal CPAP #Asthma: Well-controlled. Continue albuterol as needed. #Osteoarthritis: Discussed exercise options including walking, biking, resistance training. Patient was reassured and welcomed to the practice. We discussed that we stress a hollistic medical approach with emphasis on lifestyle modification. Patient was informed that a healthy lifestyle with exercise and good eating habits can help reduce his risk of medical complications. Patient is explained that obesity increases his risk of diabetes, cardiovascular disease, or organ damage. We spent a lot of time discussing the relationship between food, exercise, sleep, mental health and obesity. Patient was counseled on the importance EATING local, organic food when possible. Patient was educated on clean 15 and dirty dozen. I provided information about reading books called The Food Rules by Jeremy Patel and Eat Fat Get Lean by Dr Silvino Gomez. Self education is important in the journey for weight management. Patient was offered diagnostic testing/ SECA scale. We want to measure visceral adiposity, advanced body composition, adverse lipids, fatty acid balance, risk for heart disease and atherosclerosis, markers of inflammation and genetic susceptibility. Patient was counseled on weight management and was advised to lose weight using A. Meal Replacement Products Patient was educated on the replacement products called optifast. This is a good way of taking fixed amount of calories. It has been shown in studies to be ineffective weight management tool. This however has to be coupled with lifestyle intervention as well as laboratory data and EKG monitoring. It is impossible to know how a person will tolerate complete meal replacement. The side effects of meal replacement and weight loss could include syncopal attacks, dizziness, gallstones, potential cholecystectomy, possible heart attack and even . The benefits of meal replacement would be potential weight loss but no guarantees can be made. Meal replacement products are not covered by insurance. Once the patient has bought these products we cannot return them B. Lifestyle management which includes several strategies as below 1. Eat a low carbohydrate good fat good protein diet. Eliminate refined carbohydrates from the diet. Limit sugared beverages. Eat local organic when possible. Cook your own meals. Read food labels. Focus on healthy snacks. Portion control and food with low glycemic index 2. Exercise regularly. Try to get at least 6000 steps a day. Use a predominant to track activity level. Consider using apps like 7 minute excercise, [employer], lose it, stick as needed for self-monitoring and weight management. Consider group exercises. Consider hiring a net trainer. Regular exercise is velazqeuz to sustainable health and prevents as a buffer against weight regain 3. Sleep is most important for healing. Try to sleep at least 6-8 hours a night. A good quality sleep needs a sleep ritual with ideal room temperature of around 68. It might help to take a shower and have no electronics in the room and sleep in a very dark room without artificial light. Start sleep routine and get up early in the morning and go to bed on time. 4. Make a social connection. Surround yourself with positive people with positive energy. Connect with friends and family. 5. Get into the habit of meditating and mindfulness while doing everything. 6. Go outside and connect with nature. C. Prescription medications Patient was educated on the use of prescription medications for medical weight loss. This is a growing list and includes phentermine, Topamax,Qsymia, contrave, belviq and saxenda, wegovy etc. All prescription medications could have side effects including but not limited to kidney stones, seizure disorder cardiac arrhythmias heart attack pancreatitis, GI effects, Etc. Patient was encouraged to read the prescription insert and have coaching with their pharmacist and make an informed decision about taking medication and know that these medications are being prescribed with good intentions and we do not know how a patient would react to her medication. Some medications are FDA approved for weight loss and there is also off label use depending on patient's inability to afford medications in an attempt to lose weight D. Behavioral counseling was done to establish a relationship between food and an mood. Patient was provided information about local counseling and psychiatry and Dr Marin at [facility]. We would like to cover regular topics and build on low glycemic eating exercise mindful eating, using yoga and meditation along with deep breathing and connecting with friends and family. E. MASS PAT reviewed, Patient's current medications were reviewed and opinion was given on medication that can cause weight gain and can be substituted F. Patient was assessed for risk with obesity including and not limiting to atherosclerosis heart disease stroke kidney disease, restrictive lung disease, irritable bowel syndrome and overall mortality. Risk of developing prediabetes diabetes and metabolic syndrome was discussed G. Therapeutic plan: We have decided to make therapeutic plan which would include choosing wisely on calories restricting portion getting active, tracking weight, getting good quality sleep and working on time management H. Patient will follow up in 4 weeks for weight management Total time spent today was 60 minutes of which greater than 50% was spent on coordinating and counseling Case discussed with collaborating physician Helder Pagan who reviewed the assessment and plan. Chart, medications, labs, vital signs reviewed. Dictation was accomplished with the use of [employer] voice recognition software, prone to medical misidentifications and grammatical errors. This is unintentional and the practitioner does try to identify and correct these, but some could still be present. Please do not hesitate to contact practitioner for clarification. All questions answered to patients satisfaction. Patient verbalized understanding of diagnosis and treatments explained. To call sooner prior to next visit it any questions/concerns arise. 10/16/2024 BMI 40.0-44.9, adult (ICD-10 - Z68.41) Sue is a 54-year-old female with past medical history of obesity, arthritis, fatty liver, and asthma who management consult. Medical history, labs, allergies, medications, and social history reviewed with the patient. Provided education on healthy diet and lifestyle which includes high-protein, low carbohydrate, high-fiber, and a variety of fruits and vegetables. Patient encouraged to exercise with emphasis on resistance training minimum 3 times per week to maintain muscle mass and cardio to burn fat. All patient questions answered. Patient will follow-up in 4 weeks for weight management. #Morbid obesity: Weight today 214.5 pounds, BMI 40.5. She exercises by playing volleyball and softball twice per week, she mostly focuses on home-cooked meals with protein and vegetables, discussed switching out gym eating breakfast sandwich for her protein shake or smoothie. Discussed weight loss medications. Given MASH, plan for Wegovy 0.25 mg weekly injections. Educated on side effects including nausea, constipation, reflux, heartburn, hair thinning. Will submit PA today. Follow-up in 4 weeks. #MASH: Follows with PCP. Discussed exercise, diet, hydration goals. Plan for Wegovy 0.25 mg weekly injections #ANDREA: Continue nocturnal CPAP #Asthma: Well-controlled. Continue albuterol as needed. #Osteoarthritis: Discussed exercise options including walking, biking, resistance training. Patient was reassured and welcomed to the practice. We discussed that we stress a hollistic medical approach with emphasis on lifestyle modification. Patient was informed that a healthy lifestyle with exercise and good eating habits can help reduce his risk of medical complications. Patient is explained that obesity increases his risk of diabetes, cardiovascular disease, or organ damage. We spent a lot of time discussing the relationship between food, exercise, sleep, mental health and obesity. Patient was counseled on the importance EATING local, organic food when possible. Patient was educated on clean 15 and dirty dozen. I provided information about reading books called The Food Rules by Jeremy Patel and Eat Fat Get Lean by Dr Silvino Gomez. Self education is important in the journey for weight management. Patient was offered diagnostic testing/ SECA scale. We want to measure visceral adiposity, advanced body composition, adverse lipids, fatty acid balance, risk for heart disease and atherosclerosis, markers of inflammation and genetic susceptibility. Patient was counseled on weight management and was advised to lose weight using A. Meal Replacement Products Patient was educated on the replacement products called optifast. This is a good way of taking fixed amount of calories. It has been shown in studies to be ineffective weight management tool. This however has to be coupled with lifestyle intervention as well as laboratory data and EKG monitoring. It is impossible to know how a person will tolerate complete meal replacement. The side effects of meal replacement and weight loss could include syncopal attacks, dizziness, gallstones, potential cholecystectomy, possible heart attack and even . The benefits of meal replacement would be potential weight loss but no guarantees can be made. Meal replacement products are not covered by insurance. Once the patient has bought these products we cannot return them B. Lifestyle management which includes several strategies as below 1. Eat a low carbohydrate good fat good protein diet. Eliminate refined carbohydrates from the diet. Limit sugared beverages. Eat local organic when possible. Cook your own meals. Read food labels. Focus on healthy snacks. Portion control and food with low glycemic index 2. Exercise regularly. Try to get at least 6000 steps a day. Use a predominant to track activity level. Consider using apps like 7 minute excercise, [employer] Energypal, lose it, stick as needed for self-monitoring and weight management. Consider group exercises. Consider hiring a net trainer. Regular exercise is velazquez to sustainable health and prevents as a buffer against weight regain 3. Sleep is most important for healing. Try to sleep at least 6-8 hours a night. A good quality sleep needs a sleep ritual with ideal room temperature of around 68. It might help to take a shower and have no electronics in the room and sleep in a very dark room without artificial light. Start sleep routine and get up early in the morning and go to bed on time. 4. Make a social connection. Surround yourself with positive people with positive energy. Connect with friends and family. 5. Get into the habit of meditating and mindfulness while doing everything. 6. Go outside and connect with nature. C. Prescription medications Patient was educated on the use of prescription medications for medical weight loss. This is a growing list and includes phentermine, Topamax,Qsymia, contrave, belviq and saxenda, wegovy etc. All prescription medications could have side effects including but not limited to kidney stones, seizure disorder cardiac arrhythmias heart attack pancreatitis, GI effects, Etc. Patient was encouraged to read the prescription insert and have coaching with their pharmacist and make an informed decision about taking medication and know that these medications are being prescribed with good intentions and we do not know how a patient would react to her medication. Some medications are FDA approved for weight loss and there is also off label use depending on patient's inability to afford medications in an attempt to lose weight D. Behavioral counseling was done to establish a relationship between food and an mood. Patient was provided information about local counseling and psychiatry and Dr Marin at [facility]. We would like to cover regular topics and build on low glycemic eating exercise mindful eating, using yoga and meditation along with deep breathing and connecting with friends and family. E. MASS PAT reviewed, Patient's current medications were reviewed and opinion was given on medication that can cause weight gain and can be substituted F. Patient was assessed for risk with obesity including and not limiting to atherosclerosis heart disease stroke kidney disease, restrictive lung disease, irritable bowel syndrome and overall mortality. Risk of developing prediabetes diabetes and metabolic syndrome was discussed G. Therapeutic plan: We have decided to make therapeutic plan which would include choosing wisely on calories restricting portion getting active, tracking weight, getting good quality sleep and working on time management H. Patient will follow up in 4 weeks for weight management Total time spent today was 60 minutes of which greater than 50% was spent on coordinating and counseling Case discussed with collaborating physician Helder Pagan who reviewed the assessment and plan. Chart, medications, labs, vital signs reviewed. Dictation was accomplished with the use of [employer] voice recognition software, prone to medical misidentifications and grammatical errors. This is unintentional and the practitioner does try to identify and correct these, but some could still be present. Please do not hesitate to contact practitioner for clarification. All questions answered to patients satisfaction. Patient verbalized understanding of diagnosis and treatments explained. To call sooner prior to next visit it any questions/concerns arise. 11/22/2024 BMI 39.0-39.9,adult (ICD-10 - Z68.39) Sue is a 54-year-old female with past medical history of obesity, arthritis, fatty liver, and asthma who management consult. Medical history, labs, allergies, medications, and social history reviewed with the patient. Provided education on healthy diet and lifestyle which includes high-protein, low carbohydrate, high-fiber, and a variety of fruits and vegetables. Patient encouraged to exercise with emphasis on resistance training minimum 3 times per week to maintain muscle mass and cardio to burn fat. All patient questions answered. Patient will follow-up in 4 weeks for weight management. #Morbid obesity: Weight today 214.5 pounds, BMI 40.5. She exercises by playing volleyball and softball twice per week, she mostly focuses on home-cooked meals with protein and vegetables, discussed switching out gym eating breakfast sandwich for her protein shake or smoothie. Discussed weight loss medications. Given MASH, plan for Wegovy 0.25 mg weekly injections. Educated on side effects including nausea, constipation, reflux, heartburn, hair thinning. Will submit PA today. Follow-up in 4 weeks. 11/22/2024: Weight 210.4 pounds, BMI 39.8. She was started on Zepbound 2.5 mg weekly injections, has had 2 injections so far. On review of body composition scan, skeletal muscle mass decreased 0.5 pounds, fat mass decreased 4 pounds. Discussed protein, exercise, hydration goals. Plan to increase to Zepbound 5 mg weekly injections. Follow-up in 4 weeks. #Epigastric pain: Symptoms ongoing for 6 months, no dyspnea on exertion, shortness of breath, palpitations, lightheadedness, abdominal pain. She has been utilizing pantoprazole with no relief. On exam, vital stable. Regular rate and rhythm on cardiac auscultation. Tenderness to palpation over chest wall. Differential includes GERD, costochondritis, ACS. Plan for EKG. Advised patient to utilize pantoprazole daily, along with ibuprofen for 5 days to determine if symptoms improve, making MSK etiology more likely. Plan for routine labs. Advised patient to contact her PCP. Consider echocardiogram and/or stress test in the future. Patient advised to report to the ER if she develops worsening or crushing chest pain, radiation down the left arm, lightheadedness or palpitations. #MASH: Follows with PCP. Discussed exercise, diet, hydration goals. Plan for Wegovy 0.25 mg weekly injections #ANDREA: Continue nocturnal CPAP #Asthma: Well-controlled. Continue albuterol as needed. #Osteoarthritis: Discussed exercise options including walking, biking, resistance training. Patient was reassured and welcomed to the practice. We discussed that we stress a hollistic medical approach with emphasis on lifestyle modification. Patient was informed that a healthy lifestyle with exercise and good eating habits can help reduce his risk of medical complications. Patient is explained that obesity increases his risk of diabetes, cardiovascular disease, or organ damage. We spent a lot of time discussing the relationship between food, exercise, sleep, mental health and obesity. Patient was counseled on the importance EATING local, organic food when possible. Patient was educated on clean 15 and dirty dozen. I provided information about reading books called The Food Rules by Jeremy Patel and Eat Fat Get Lean by Dr Silvino Gomez. Self education is important in the journey for weight management. Patient was offered diagnostic testing/ SECA scale. We want to measure visceral adiposity, advanced body composition, adverse lipids, fatty acid balance, risk for heart disease and atherosclerosis, markers of inflammation and genetic susceptibility. Patient was counseled on weight management and was advised to lose weight using A. Meal Replacement Products Patient was educated on the replacement products called optifast. This is a good way of taking fixed amount of calories. It has been shown in studies to be ineffective weight management tool. This however has to be coupled with lifestyle intervention as well as laboratory data and EKG monitoring. It is impossible to know how a person will tolerate complete meal replacement. The side effects of meal replacement and weight loss could include syncopal attacks, dizziness, gallstones, potential cholecystectomy, possible heart attack and even . The benefits of meal replacement would be potential weight loss but no guarantees can be made. Meal replacement products are not covered by insurance. Once the patient has bought these products we cannot return them B. Lifestyle management which includes several strategies as below 1. Eat a low carbohydrate good fat good protein diet. Eliminate refined carbohydrates from the diet. Limit sugared beverages. Eat local organic when possible. Cook your own meals. Read food labels. Focus on healthy snacks. Portion control and food with low glycemic index 2. Exercise regularly. Try to get at least 6000 steps a day. Use a predominant to track activity level. Consider using apps like 7 minute excercise, [employer] Powerpal, lose it, stick as needed for self-monitoring and weight management. Consider group exercises. Consider hiring a net trainer. Regular exercise is velazquez to sustainable health and prevents as a buffer against weight regain 3. Sleep is most important for healing. Try to sleep at least 6-8 hours a night. A good quality sleep needs a sleep ritual with ideal room temperature of around 68. It might help to take a shower and have no electronics in the room and sleep in a very dark room without artificial light. Start sleep routine and get up early in the morning and go to bed on time. 4. Make a social connection. Surround yourself with positive people with positive energy. Connect with friends and family. 5. Get into the habit of meditating and mindfulness while doing everything. 6. Go outside and connect with nature. C. Prescription medications Patient was educated on the use of prescription medications for medical weight loss. This is a growing list and includes phentermine, Topamax,Qsymia, contrave, belviq and saxenda, wegovy etc. All prescription medications could have side effects including but not limited to kidney stones, seizure disorder cardiac arrhythmias heart attack pancreatitis, GI effects, Etc. Patient was encouraged to read the prescription insert and have coaching with their pharmacist and make an informed decision about taking medication and know that these medications are being prescribed with good intentions and we do not know how a patient would react to her medication. Some medications are FDA approved for weight loss and there is also off label use depending on patient's inability to afford medications in an attempt to lose weight D. Behavioral counseling was done to establish a relationship between food and an mood. Patient was provided information about local counseling and psychiatry and Dr Marin at [facility]. We would like to cover regular topics and build on low glycemic eating exercise mindful eating, using yoga and meditation along with deep breathing and connecting with friends and family. E. MASS PAT reviewed, Patient's current medications were reviewed and opinion was given on medication that can cause weight gain and can be substituted F. Patient was assessed for risk with obesity including and not limiting to atherosclerosis heart disease stroke kidney disease, restrictive lung disease, irritable bowel syndrome and overall mortality. Risk of developing prediabetes diabetes and metabolic syndrome was discussed G. Therapeutic plan: We have decided to make therapeutic plan which would include choosing wisely on calories restricting portion getting active, tracking weight, getting good quality sleep and working on time management H. Patient will follow up in 4 weeks for weight management Total time spent today was 60 minutes of which greater than 50% was spent on coordinating and counseling Case discussed with collaborating physician Helder Pagan who reviewed the assessment and plan. Chart, medications, labs, vital signs reviewed. Dictation was accomplished with the use of [employer] voice recognition software, prone to medical misidentifications and grammatical errors. This is unintentional and the practitioner does try to identify and correct these, but some could still be present. Please do not hesitate to contact practitioner for clarification. All questions answered to patients satisfaction. Patient verbalized understanding of diagnosis and treatments explained. To call sooner prior to next visit it any questions/concerns arise. 11/22/2024 Moderate obesity (ICD-10 - E66.9) Sue is a 54-year-old female with past medical history of obesity, arthritis, fatty liver, and asthma who management consult. Medical history, labs, allergies, medications, and social history reviewed with the patient. Provided education on healthy diet and lifestyle which includes high-protein, low carbohydrate, high-fiber, and a variety of fruits and vegetables. Patient encouraged to exercise with emphasis on resistance training minimum 3 times per week to maintain muscle mass and cardio to burn fat. All patient questions answered. Patient will follow-up in 4 weeks for weight management. #Morbid obesity: Weight today 214.5 pounds, BMI 40.5. She exercises by playing volleyball and softball twice per week, she mostly focuses on home-cooked meals with protein and vegetables, discussed switching out gym eating breakfast sandwich for her protein shake or smoothie. Discussed weight loss medications. Given LOUIE, plan for Wegovy 0.25 mg weekly injections. Educated on side effects including nausea, constipation, reflux, heartburn, hair thinning. Will submit PA today. Follow-up in 4 weeks. 11/22/2024: Weight 210.4 pounds, BMI 39.8. She was started on Zepbound 2.5 mg weekly injections, has had 2 injections so far. On review of body composition scan, skeletal muscle mass decreased 0.5 pounds, fat mass decreased 4 pounds. Discussed protein, exercise, hydration goals. Plan to increase to Zepbound 5 mg weekly injections. Follow-up in 4 weeks. #Epigastric pain: Symptoms ongoing for 6 months, no dyspnea on exertion, shortness of breath, palpitations, lightheadedness, abdominal pain. She has been utilizing pantoprazole with no relief. On exam, vital stable. Regular rate and rhythm on cardiac auscultation. Tenderness to palpation over chest wall. Differential includes GERD, costochondritis, ACS. Plan for EKG. Advised patient to utilize pantoprazole daily, along with ibuprofen for 5 days to determine if symptoms improve, making MSK etiology more likely. Plan for routine labs. Advised patient to contact her PCP. Consider echocardiogram and/or stress test in the future. Patient advised to report to the ER if she develops worsening or crushing chest pain, radiation down the left arm, lightheadedness or palpitations. #MASH: Follows with PCP. Discussed exercise, diet, hydration goals. Plan for Wegovy 0.25 mg weekly injections #ANDREA: Continue nocturnal CPAP #Asthma: Well-controlled. Continue albuterol as needed. #Osteoarthritis: Discussed exercise options including walking, biking, resistance training. Patient was reassured and welcomed to the practice. We discussed that we stress a hollistic medical approach with emphasis on lifestyle modification. Patient was informed that a healthy lifestyle with exercise and good eating habits can help reduce his risk of medical complications. Patient is explained that obesity increases his risk of diabetes, cardiovascular disease, or organ damage. We spent a lot of time discussing the relationship between food, exercise, sleep, mental health and obesity. Patient was counseled on the importance EATING local, organic food when possible. Patient was educated on clean 15 and dirty dozen. I provided information about reading books called The Food Rules by Jeremy Patel and Eat Fat Get Lean by Dr Silvino Gomez. Self education is important in the journey for weight management. Patient was offered diagnostic testing/ SECA scale. We want to measure visceral adiposity, advanced body composition, adverse lipids, fatty acid balance, risk for heart disease and atherosclerosis, markers of inflammation and genetic susceptibility. Patient was counseled on weight management and was advised to lose weight using A. Meal Replacement Products Patient was educated on the replacement products called optifast. This is a good way of taking fixed amount of calories. It has been shown in studies to be ineffective weight management tool. This however has to be coupled with lifestyle intervention as well as laboratory data and EKG monitoring. It is impossible to know how a person will tolerate complete meal replacement. The side effects of meal replacement and weight loss could include syncopal attacks, dizziness, gallstones, potential cholecystectomy, possible heart attack and even . The benefits of meal replacement would be potential weight loss but no guarantees can be made. Meal replacement products are not covered by insurance. Once the patient has bought these products we cannot return them B. Lifestyle management which includes several strategies as below 1. Eat a low carbohydrate good fat good protein diet. Eliminate refined carbohydrates from the diet. Limit sugared beverages. Eat local organic when possible. Cook your own meals. Read food labels. Focus on healthy snacks. Portion control and food with low glycemic index 2. Exercise regularly. Try to get at least 6000 steps a day. Use a predominant to track activity level. Consider using apps like 7 minute excercise, my[employer] Energypal, lose it, stick as needed for self-monitoring and weight management. Consider group exercises. Consider hiring a net trainer. Regular exercise is velazquez to sustainable health and prevents as a buffer against weight regain 3. Sleep is most important for healing. Try to sleep at least 6-8 hours a night. A good quality sleep needs a sleep ritual with ideal room temperature of around 68. It might help to take a shower and have no electronics in the room and sleep in a very dark room without artificial light. Start sleep routine and get up early in the morning and go to bed on time. 4. Make a social connection. Surround yourself with positive people with positive energy. Connect with friends and family. 5. Get into the habit of meditating and mindfulness while doing everything. 6. Go outside and connect with nature. C. Prescription medications Patient was educated on the use of prescription medications for medical weight loss. This is a growing list and includes phentermine, Topamax,Qsymia, contrave, belviq and saxenda, wegovy etc. All prescription medications could have side effects including but not limited to kidney stones, seizure disorder cardiac arrhythmias heart attack pancreatitis, GI effects, Etc. Patient was encouraged to read the prescription insert and have coaching with their pharmacist and make an informed decision about taking medication and know that these medications are being prescribed with good intentions and we do not know how a patient would react to her medication. Some medications are FDA approved for weight loss and there is also off label use depending on patient's inability to afford medications in an attempt to lose weight D. Behavioral counseling was done to establish a relationship between food and an mood. Patient was provided information about local counseling and psychiatry and Dr Marin at [facility]. We would like to cover regular topics and build on low glycemic eating exercise mindful eating, using yoga and meditation along with deep breathing and connecting with friends and family. E. MASS PAT reviewed, Patient's current medications were reviewed and opinion was given on medication that can cause weight gain and can be substituted F. Patient was assessed for risk with obesity including and not limiting to atherosclerosis heart disease stroke kidney disease, restrictive lung disease, irritable bowel syndrome and overall mortality. Risk of developing prediabetes diabetes and metabolic syndrome was discussed G. Therapeutic plan: We have decided to make therapeutic plan which would include choosing wisely on calories restricting portion getting active, tracking weight, getting good quality sleep and working on time management H. Patient will follow up in 4 weeks for weight management Total time spent today was 60 minutes of which greater than 50% was spent on coordinating and counseling Case discussed with collaborating physician Helder Pagan who reviewed the assessment and plan. Chart, medications, labs, vital signs reviewed. Dictation was accomplished with the use of [employer] voice recognition software, prone to medical misidentifications and grammatical errors. This is unintentional and the practitioner does try to identify and correct these, but some could still be present. Please do not hesitate to contact practitioner for clarification. All questions answered to patients satisfaction. Patient verbalized understanding of diagnosis and treatments explained. To call sooner prior to next visit it any questions/concerns arise. 11/22/2024 Dietary counseling and surveillance (ICD-10 - Z71.3) Sue is a 54-year-old female with past medical history of obesity, arthritis, fatty liver, and asthma who management consult. Medical history, labs, allergies, medications, and social history reviewed with the patient. Provided education on healthy diet and lifestyle which includes high-protein, low carbohydrate, high-fiber, and a variety of fruits and vegetables. Patient encouraged to exercise with emphasis on resistance training minimum 3 times per week to maintain muscle mass and cardio to burn fat. All patient questions answered. Patient will follow-up in 4 weeks for weight management. #Morbid obesity: Weight today 214.5 pounds, BMI 40.5. She exercises by playing volleyball and softball twice per week, she mostly focuses on home-cooked meals with protein and vegetables, discussed switching out gym eating breakfast sandwich for her protein shake or smoothie. Discussed weight loss medications. Given MASH, plan for Wegovy 0.25 mg weekly injections. Educated on side effects including nausea, constipation, reflux, heartburn, hair thinning. Will submit PA today. Follow-up in 4 weeks. 11/22/2024: Weight 210.4 pounds, BMI 39.8. She was started on Zepbound 2.5 mg weekly injections, has had 2 injections so far. On review of body composition scan, skeletal muscle mass decreased 0.5 pounds, fat mass decreased 4 pounds. Discussed protein, exercise, hydration goals. Plan to increase to Zepbound 5 mg weekly injections. Follow-up in 4 weeks. #Epigastric pain: Symptoms ongoing for 6 months, no dyspnea on exertion, shortness of breath, palpitations, lightheadedness, abdominal pain. She has been utilizing pantoprazole with no relief. On exam, vital stable. Regular rate and rhythm on cardiac auscultation. Tenderness to palpation over chest wall. Differential includes GERD, costochondritis, ACS. Plan for EKG. Advised patient to utilize pantoprazole daily, along with ibuprofen for 5 days to determine if symptoms improve, making MSK etiology more likely. Plan for routine labs. Advised patient to contact her PCP. Consider echocardiogram and/or stress test in the future. Patient advised to report to the ER if she develops worsening or crushing chest pain, radiation down the left arm, lightheadedness or palpitations. #MASH: Follows with PCP. Discussed exercise, diet, hydration goals. Plan for Wegovy 0.25 mg weekly injections #ANDREA: Continue nocturnal CPAP #Asthma: Well-controlled. Continue albuterol as needed. #Osteoarthritis: Discussed exercise options including walking, biking, resistance training. Patient was reassured and welcomed to the practice. We discussed that we stress a hollistic medical approach with emphasis on lifestyle modification. Patient was informed that a healthy lifestyle with exercise and good eating habits can help reduce his risk of medical complications. Patient is explained that obesity increases his risk of diabetes, cardiovascular disease, or organ damage. We spent a lot of time discussing the relationship between food, exercise, sleep, mental health and obesity. Patient was counseled on the importance EATING local, organic food when possible. Patient was educated on clean 15 and dirty dozen. I provided information about reading books called The Food Rules by Jeremy Patel and Eat Fat Get Lean by Dr Silvino Gomez. Self education is important in the journey for weight management. Patient was offered diagnostic testing/ SECA scale. We want to measure visceral adiposity, advanced body composition, adverse lipids, fatty acid balance, risk for heart disease and atherosclerosis, markers of inflammation and genetic susceptibility. Patient was counseled on weight management and was advised to lose weight using A. Meal Replacement Products Patient was educated on the replacement products called optifast. This is a good way of taking fixed amount of calories. It has been shown in studies to be ineffective weight management tool. This however has to be coupled with lifestyle intervention as well as laboratory data and EKG monitoring. It is impossible to know how a person will tolerate complete meal replacement. The side effects of meal replacement and weight loss could include syncopal attacks, dizziness, gallstones, potential cholecystectomy, possible heart attack and even . The benefits of meal replacement would be potential weight loss but no guarantees can be made. Meal replacement products are not covered by insurance. Once the patient has bought these products we cannot return them B. Lifestyle management which includes several strategies as below 1. Eat a low carbohydrate good fat good protein diet. Eliminate refined carbohydrates from the diet. Limit sugared beverages. Eat local organic when possible. Cook your own meals. Read food labels. Focus on healthy snacks. Portion control and food with low glycemic index 2. Exercise regularly. Try to get at least 6000 steps a day. Use a predominant to track activity level. Consider using apps like 7 minute excercise, my[employer] Editionnesspal, lose it, stick as needed for self-monitoring and weight management. Consider group exercises. Consider hiring a net trainer. Regular exercise is velazquez to sustainable health and prevents as a buffer against weight regain 3. Sleep is most important for healing. Try to sleep at least 6-8 hours a night. A good quality sleep needs a sleep ritual with ideal room temperature of around 68. It might help to take a shower and have no electronics in the room and sleep in a very dark room without artificial light. Start sleep routine and get up early in the morning and go to bed on time. 4. Make a social connection. Surround yourself with positive people with positive energy. Connect with friends and family. 5. Get into the habit of meditating and mindfulness while doing everything. 6. Go outside and connect with nature. C. Prescription medications Patient was educated on the use of prescription medications for medical weight loss. This is a growing list and includes phentermine, Topamax,Qsymia, contrave, belviq and saxenda, wegovy etc. All prescription medications could have side effects including but not limited to kidney stones, seizure disorder cardiac arrhythmias heart attack pancreatitis, GI effects, Etc. Patient was encouraged to read the prescription insert and have coaching with their pharmacist and make an informed decision about taking medication and know that these medications are being prescribed with good intentions and we do not know how a patient would react to her medication. Some medications are FDA approved for weight loss and there is also off label use depending on patient's inability to afford medications in an attempt to lose weight D. Behavioral counseling was done to establish a relationship between food and an mood. Patient was provided information about local counseling and psychiatry and Dr Marin at [facility]. We would like to cover regular topics and build on low glycemic eating exercise mindful eating, using yoga and meditation along with deep breathing and connecting with friends and family. E. MASS PAT reviewed, Patient's current medications were reviewed and opinion was given on medication that can cause weight gain and can be substituted F. Patient was assessed for risk with obesity including and not limiting to atherosclerosis heart disease stroke kidney disease, restrictive lung disease, irritable bowel syndrome and overall mortality. Risk of developing prediabetes diabetes and metabolic syndrome was discussed G. Therapeutic plan: We have decided to make therapeutic plan which would include choosing wisely on calories restricting portion getting active, tracking weight, getting good quality sleep and working on time management H. Patient will follow up in 4 weeks for weight management Total time spent today was 60 minutes of which greater than 50% was spent on coordinating and counseling Case discussed with collaborating physician Helder Pagan who reviewed the assessment and plan. Chart, medications, labs, vital signs reviewed. Dictation was accomplished with the use of [employer] voice recognition software, prone to medical misidentifications and grammatical errors. This is unintentional and the practitioner does try to identify and correct these, but some could still be present. Please do not hesitate to contact practitioner for clarification. All questions answered to patients satisfaction. Patient verbalized understanding of diagnosis and treatments explained. To call sooner prior to next visit it any questions/concerns arise. 10/16/2024 Morbid obesity (ICD-10 - E66.01) Electronic Prior Authorization was requested for Wegovy 0.25 MG/0.5ML Solution Auto-injector. Provider can order medication once approval received. 10/30/2024 Morbid obesity (ICD-10 - E66.01) Electronic Prior Authorization was requested for Zepbound 2.5 MG/0.5ML Solution Auto-injector. Provider can order medication once approval received. 10/16/2024 Dietary counseling and surveillance (ICD-10 - Z71.3) Sue is a 54-year-old female with past medical history of obesity, arthritis, fatty liver, and asthma who management consult. Medical history, labs, allergies, medications, and social history reviewed with the patient. Provided education on healthy diet and lifestyle which includes high-protein, low carbohydrate, high-fiber, and a variety of fruits and vegetables. Patient encouraged to exercise with emphasis on resistance training minimum 3 times per week to maintain muscle mass and cardio to burn fat. All patient questions answered. Patient will follow-up in 4 weeks for weight management. #Morbid obesity: Weight today 214.5 pounds, BMI 40.5. She exercises by playing volleyball and softball twice per week, she mostly focuses on home-cooked meals with protein and vegetables, discussed switching out gym eating breakfast sandwich for her protein shake or smoothie. Discussed weight loss medications. Given MASH, plan for Wegovy 0.25 mg weekly injections. Educated on side effects including nausea, constipation, reflux, heartburn, hair thinning. Will submit PA today. Follow-up in 4 weeks. #MASH: Follows with PCP. Discussed exercise, diet, hydration goals. Plan for Wegovy 0.25 mg weekly injections #ANDREA: Continue nocturnal CPAP #Asthma: Well-controlled. Continue albuterol as needed. #Osteoarthritis: Discussed exercise options including walking, biking, resistance training. Patient was reassured and welcomed to the practice. We discussed that we stress a hollistic medical approach with emphasis on lifestyle modification. Patient was informed that a healthy lifestyle with exercise and good eating habits can help reduce his risk of medical complications. Patient is explained that obesity increases his risk of diabetes, cardiovascular disease, or organ damage. We spent a lot of time discussing the relationship between food, exercise, sleep, mental health and obesity. Patient was counseled on the importance EATING local, organic food when possible. Patient was educated on clean 15 and dirty dozen. I provided information about reading books called The Food Rules by Jeremy Patel and Eat Fat Get Lean by Dr Silvino Gomez. Self education is important in the journey for weight management. Patient was offered diagnostic testing/ SECA scale. We want to measure visceral adiposity, advanced body composition, adverse lipids, fatty acid balance, risk for heart disease and atherosclerosis, markers of inflammation and genetic susceptibility. Patient was counseled on weight management and was advised to lose weight using A. Meal Replacement Products Patient was educated on the replacement products called optifast. This is a good way of taking fixed amount of calories. It has been shown in studies to be ineffective weight management tool. This however has to be coupled with lifestyle intervention as well as laboratory data and EKG monitoring. It is impossible to know how a person will tolerate complete meal replacement. The side effects of meal replacement and weight loss could include syncopal attacks, dizziness, gallstones, potential cholecystectomy, possible heart attack and even . The benefits of meal replacement would be potential weight loss but no guarantees can be made. Meal replacement products are not covered by insurance. Once the patient has bought these products we cannot return them B. Lifestyle management which includes several strategies as below 1. Eat a low carbohydrate good fat good protein diet. Eliminate refined carbohydrates from the diet. Limit sugared beverages. Eat local organic when possible. Cook your own meals. Read food labels. Focus on healthy snacks. Portion control and food with low glycemic index 2. Exercise regularly. Try to get at least 6000 steps a day. Use a predominant to track activity level. Consider using apps like 7 minute excercise, [employer] Powerpal, lose it, stick as needed for self-monitoring and weight management. Consider group exercises. Consider hiring a net trainer. Regular exercise is velazquez to sustainable health and prevents as a buffer against weight regain 3. Sleep is most important for healing. Try to sleep at least 6-8 hours a night. A good quality sleep needs a sleep ritual with ideal room temperature of around 68. It might help to take a shower and have no electronics in the room and sleep in a very dark room without artificial light. Start sleep routine and get up early in the morning and go to bed on time. 4. Make a social connection. Surround yourself with positive people with positive energy. Connect with friends and family. 5. Get into the habit of meditating and mindfulness while doing everything. 6. Go outside and connect with nature. C. Prescription medications Patient was educated on the use of prescription medications for medical weight loss. This is a growing list and includes phentermine, Topamax,Qsymia, contrave, belviq and saxenda, wegovy etc. All prescription medications could have side effects including but not limited to kidney stones, seizure disorder cardiac arrhythmias heart attack pancreatitis, GI effects, Etc. Patient was encouraged to read the prescription insert and have coaching with their pharmacist and make an informed decision about taking medication and know that these medications are being prescribed with good intentions and we do not know how a patient would react to her medication. Some medications are FDA approved for weight loss and there is also off label use depending on patient's inability to afford medications in an attempt to lose weight D. Behavioral counseling was done to establish a relationship between food and an mood. Patient was provided information about local counseling and psychiatry and Dr Marin at [facility]. We would like to cover regular topics and build on low glycemic eating exercise mindful eating, using yoga and meditation along with deep breathing and connecting with friends and family. E. MASS PAT reviewed, Patient's current medications were reviewed and opinion was given on medication that can cause weight gain and can be substituted F. Patient was assessed for risk with obesity including and not limiting to atherosclerosis heart disease stroke kidney disease, restrictive lung disease, irritable bowel syndrome and overall mortality. Risk of developing prediabetes diabetes and metabolic syndrome was discussed G. Therapeutic plan: We have decided to make therapeutic plan which would include choosing wisely on calories restricting portion getting active, tracking weight, getting good quality sleep and working on time management H. Patient will follow up in 4 weeks for weight management Total time spent today was 60 minutes of which greater than 50% was spent on coordinating and counseling Case discussed with collaborating physician Helder Pagan who reviewed the assessment and plan. Chart, medications, labs, vital signs reviewed. Dictation was accomplished with the use of [employer] voice recognition software, prone to medical misidentifications and grammatical errors. This is unintentional and the practitioner does try to identify and correct these, but some could still be present. Please do not hesitate to contact practitioner for clarification. All questions answered to patients satisfaction. Patient verbalized understanding of diagnosis and treatments explained. To call sooner prior to next visit it any questions/concerns arise. 10/16/2024 Fatty liver disease, nonalcoholic (ICD-10 - K76.0) Sue is a 54-year-old female with past medical history of obesity, arthritis, fatty liver, and asthma who management consult. Medical history, labs, allergies, medications, and social history reviewed with the patient. Provided education on healthy diet and lifestyle which includes high-protein, low carbohydrate, high-fiber, and a variety of fruits and vegetables. Patient encouraged to exercise with emphasis on resistance training minimum 3 times per week to maintain muscle mass and cardio to burn fat. All patient questions answered. Patient will follow-up in 4 weeks for weight management. #Morbid obesity: Weight today 214.5 pounds, BMI 40.5. She exercises by playing volleyball and softball twice per week, she mostly focuses on home-cooked meals with protein and vegetables, discussed switching out gym eating breakfast sandwich for her protein shake or smoothie. Discussed weight loss medications. Given MASH, plan for Wegovy 0.25 mg weekly injections. Educated on side effects including nausea, constipation, reflux, heartburn, hair thinning. Will submit PA today. Follow-up in 4 weeks. #MASH: Follows with PCP. Discussed exercise, diet, hydration goals. Plan for Wegovy 0.25 mg weekly injections #ANDREA: Continue nocturnal CPAP #Asthma: Well-controlled. Continue albuterol as needed. #Osteoarthritis: Discussed exercise options including walking, biking, resistance training. Patient was reassured and welcomed to the practice. We discussed that we stress a hollistic medical approach with emphasis on lifestyle modification. Patient was informed that a healthy lifestyle with exercise and good eating habits can help reduce his risk of medical complications. Patient is explained that obesity increases his risk of diabetes, cardiovascular disease, or organ damage. We spent a lot of time discussing the relationship between food, exercise, sleep, mental health and obesity. Patient was counseled on the importance EATING local, organic food when possible. Patient was educated on clean 15 and dirty dozen. I provided information about reading books called The Food Rules by Jeremy Patel and Eat Fat Get Lean by Dr Silvino Gomez. Self education is important in the journey for weight management. Patient was offered diagnostic testing/ SECA scale. We want to measure visceral adiposity, advanced body composition, adverse lipids, fatty acid balance, risk for heart disease and atherosclerosis, markers of inflammation and genetic susceptibility. Patient was counseled on weight management and was advised to lose weight using A. Meal Replacement Products Patient was educated on the replacement products called optifast. This is a good way of taking fixed amount of calories. It has been shown in studies to be ineffective weight management tool. This however has to be coupled with lifestyle intervention as well as laboratory data and EKG monitoring. It is impossible to know how a person will tolerate complete meal replacement. The side effects of meal replacement and weight loss could include syncopal attacks, dizziness, gallstones, potential cholecystectomy, possible heart attack and even . The benefits of meal replacement would be potential weight loss but no guarantees can be made. Meal replacement products are not covered by insurance. Once the patient has bought these products we cannot return them B. Lifestyle management which includes several strategies as below 1. Eat a low carbohydrate good fat good protein diet. Eliminate refined carbohydrates from the diet. Limit sugared beverages. Eat local organic when possible. Cook your own meals. Read food labels. Focus on healthy snacks. Portion control and food with low glycemic index 2. Exercise regularly. Try to get at least 6000 steps a day. Use a predominant to track activity level. Consider using apps like 7 minute excercise, [employer] Energypal, lose it, stick as needed for self-monitoring and weight management. Consider group exercises. Consider hiring a net trainer. Regular exercise is velazquez to sustainable health and prevents as a buffer against weight regain 3. Sleep is most important for healing. Try to sleep at least 6-8 hours a night. A good quality sleep needs a sleep ritual with ideal room temperature of around 68. It might help to take a shower and have no electronics in the room and sleep in a very dark room without artificial light. Start sleep routine and get up early in the morning and go to bed on time. 4. Make a social connection. Surround yourself with positive people with positive energy. Connect with friends and family. 5. Get into the habit of meditating and mindfulness while doing everything. 6. Go outside and connect with nature. C. Prescription medications Patient was educated on the use of prescription medications for medical weight loss. This is a growing list and includes phentermine, Topamax,Qsymia, contrave, belviq and saxenda, wegovy etc. All prescription medications could have side effects including but not limited to kidney stones, seizure disorder cardiac arrhythmias heart attack pancreatitis, GI effects, Etc. Patient was encouraged to read the prescription insert and have coaching with their pharmacist and make an informed decision about taking medication and know that these medications are being prescribed with good intentions and we do not know how a patient would react to her medication. Some medications are FDA approved for weight loss and there is also off label use depending on patient's inability to afford medications in an attempt to lose weight D. Behavioral counseling was done to establish a relationship between food and an mood. Patient was provided information about local counseling and psychiatry and Dr Marin at [facility]. We would like to cover regular topics and build on low glycemic eating exercise mindful eating, using yoga and meditation along with deep breathing and connecting with friends and family. E. MASS PAT reviewed, Patient's current medications were reviewed and opinion was given on medication that can cause weight gain and can be substituted F. Patient was assessed for risk with obesity including and not limiting to atherosclerosis heart disease stroke kidney disease, restrictive lung disease, irritable bowel syndrome and overall mortality. Risk of developing prediabetes diabetes and metabolic syndrome was discussed G. Therapeutic plan: We have decided to make therapeutic plan which would include choosing wisely on calories restricting portion getting active, tracking weight, getting good quality sleep and working on time management H. Patient will follow up in 4 weeks for weight management Total time spent today was 60 minutes of which greater than 50% was spent on coordinating and counseling Case discussed with collaborating physician Helder Pagan who reviewed the assessment and plan. Chart, medications, labs, vital signs reviewed. Dictation was accomplished with the use of [employer] voice recognition software, prone to medical misidentifications and grammatical errors. This is unintentional and the practitioner does try to identify and correct these, but some could still be present. Please do not hesitate to contact practitioner for clarification. All questions answered to patients satisfaction. Patient verbalized understanding of diagnosis and treatments explained. To call sooner prior to next visit it any questions/concerns arise. 10/30/2024 ANDREA on CPAP (ICD-10 - G47.33) Electronic Prior Authorization was requested for Zepbound 2.5 MG/0.5ML Solution Auto-injector. Provider can order medication once approval received. 11/22/2024 Fatty liver disease, nonalcoholic (ICD-10 - K76.0) Sue is a 54-year-old female with past medical history of obesity, arthritis, fatty liver, and asthma who management consult. Medical history, labs, allergies, medications, and social history reviewed with the patient. Provided education on healthy diet and lifestyle which includes high-protein, low carbohydrate, high-fiber, and a variety of fruits and vegetables. Patient encouraged to exercise with emphasis on resistance training minimum 3 times per week to maintain muscle mass and cardio to burn fat. All patient questions answered. Patient will follow-up in 4 weeks for weight management. #Morbid obesity: Weight today 214.5 pounds, BMI 40.5. She exercises by playing volleyball and softball twice per week, she mostly focuses on home-cooked meals with protein and vegetables, discussed switching out gym eating breakfast sandwich for her protein shake or smoothie. Discussed weight loss medications. Given MASH, plan for Wegovy 0.25 mg weekly injections. Educated on side effects including nausea, constipation, reflux, heartburn, hair thinning. Will submit PA today. Follow-up in 4 weeks. 11/22/2024: Weight 210.4 pounds, BMI 39.8. She was started on Zepbound 2.5 mg weekly injections, has had 2 injections so far. On review of body composition scan, skeletal muscle mass decreased 0.5 pounds, fat mass decreased 4 pounds. Discussed protein, exercise, hydration goals. Plan to increase to Zepbound 5 mg weekly injections. Follow-up in 4 weeks. #Epigastric pain: Symptoms ongoing for 6 months, no dyspnea on exertion, shortness of breath, palpitations, lightheadedness, abdominal pain. She has been utilizing pantoprazole with no relief. On exam, vital stable. Regular rate and rhythm on cardiac auscultation. Tenderness to palpation over chest wall. Differential includes GERD, costochondritis, ACS. Plan for EKG. Advised patient to utilize pantoprazole daily, along with ibuprofen for 5 days to determine if symptoms improve, making MSK etiology more likely. Plan for routine labs. Advised patient to contact her PCP. Consider echocardiogram and/or stress test in the future. Patient advised to report to the ER if she develops worsening or crushing chest pain, radiation down the left arm, lightheadedness or palpitations. #MASH: Follows with PCP. Discussed exercise, diet, hydration goals. Plan for Wegovy 0.25 mg weekly injections #ANDREA: Continue nocturnal CPAP #Asthma: Well-controlled. Continue albuterol as needed. #Osteoarthritis: Discussed exercise options including walking, biking, resistance training. Patient was reassured and welcomed to the practice. We discussed that we stress a hollistic medical approach with emphasis on lifestyle modification. Patient was informed that a healthy lifestyle with exercise and good eating habits can help reduce his risk of medical complications. Patient is explained that obesity increases his risk of diabetes, cardiovascular disease, or organ damage. We spent a lot of time discussing the relationship between food, exercise, sleep, mental health and obesity. Patient was counseled on the importance EATING local, organic food when possible. Patient was educated on clean 15 and dirty dozen. I provided information about reading books called The Food Rules by Jeremy Patel and Eat Fat Get Lean by Dr Silvino Gomez. Self education is important in the journey for weight management. Patient was offered diagnostic testing/ SECA scale. We want to measure visceral adiposity, advanced body composition, adverse lipids, fatty acid balance, risk for heart disease and atherosclerosis, markers of inflammation and genetic susceptibility. Patient was counseled on weight management and was advised to lose weight using A. Meal Replacement Products Patient was educated on the replacement products called optifast. This is a good way of taking fixed amount of calories. It has been shown in studies to be ineffective weight management tool. This however has to be coupled with lifestyle intervention as well as laboratory data and EKG monitoring. It is impossible to know how a person will tolerate complete meal replacement. The side effects of meal replacement and weight loss could include syncopal attacks, dizziness, gallstones, potential cholecystectomy, possible heart attack and even . The benefits of meal replacement would be potential weight loss but no guarantees can be made. Meal replacement products are not covered by insurance. Once the patient has bought these products we cannot return them B. Lifestyle management which includes several strategies as below 1. Eat a low carbohydrate good fat good protein diet. Eliminate refined carbohydrates from the diet. Limit sugared beverages. Eat local organic when possible. Cook your own meals. Read food labels. Focus on healthy snacks. Portion control and food with low glycemic index 2. Exercise regularly. Try to get at least 6000 steps a day. Use a predominant to track activity level. Consider using apps like 7 minute excercise, [employer], lose it, stick as needed for self-monitoring and weight management. Consider group exercises. Consider hiring a net trainer. Regular exercise is velazquez to sustainable health and prevents as a buffer against weight regain 3. Sleep is most important for healing. Try to sleep at least 6-8 hours a night. A good quality sleep needs a sleep ritual with ideal room temperature of around 68. It might help to take a shower and have no electronics in the room and sleep in a very dark room without artificial light. Start sleep routine and get up early in the morning and go to bed on time. 4. Make a social connection. Surround yourself with positive people with positive energy. Connect with friends and family. 5. Get into the habit of meditating and mindfulness while doing everything. 6. Go outside and connect with nature. C. Prescription medications Patient was educated on the use of prescription medications for medical weight loss. This is a growing list and includes phentermine, Topamax,Qsymia, contrave, belviq and saxenda, wegovy etc. All prescription medications could have side effects including but not limited to kidney stones, seizure disorder cardiac arrhythmias heart attack pancreatitis, GI effects, Etc. Patient was encouraged to read the prescription insert and have coaching with their pharmacist and make an informed decision about taking medication and know that these medications are being prescribed with good intentions and we do not know how a patient would react to her medication. Some medications are FDA approved for weight loss and there is also off label use depending on patient's inability to afford medications in an attempt to lose weight D. Behavioral counseling was done to establish a relationship between food and an mood. Patient was provided information about local counseling and psychiatry and Dr Marin at [facility]. We would like to cover regular topics and build on low glycemic eating exercise mindful eating, using yoga and meditation along with deep breathing and connecting with friends and family. E. MASS PAT reviewed, Patient's current medications were reviewed and opinion was given on medication that can cause weight gain and can be substituted F. Patient was assessed for risk with obesity including and not limiting to atherosclerosis heart disease stroke kidney disease, restrictive lung disease, irritable bowel syndrome and overall mortality. Risk of developing prediabetes diabetes and metabolic syndrome was discussed G. Therapeutic plan: We have decided to make therapeutic plan which would include choosing wisely on calories restricting portion getting active, tracking weight, getting good quality sleep and working on time management H. Patient will follow up in 4 weeks for weight management Total time spent today was 60 minutes of which greater than 50% was spent on coordinating and counseling Case discussed with collaborating physician Helder Pagan who reviewed the assessment and plan. Chart, medications, labs, vital signs reviewed. Dictation was accomplished with the use of [employer] voice recognition software, prone to medical misidentifications and grammatical errors. This is unintentional and the practitioner does try to identify and correct these, but some could still be present. Please do not hesitate to contact practitioner for clarification. All questions answered to patients satisfaction. Patient verbalized understanding of diagnosis and treatments explained. To call sooner prior to next visit it any questions/concerns arise. 11/22/2024 GERD without esophagitis (ICD-10 - K21.9) Sue is a 54-year-old female with past medical history of obesity, arthritis, fatty liver, and asthma who management consult. Medical history, labs, allergies, medications, and social history reviewed with the patient. Provided education on healthy diet and lifestyle which includes high-protein, low carbohydrate, high-fiber, and a variety of fruits and vegetables. Patient encouraged to exercise with emphasis on resistance training minimum 3 times per week to maintain muscle mass and cardio to burn fat. All patient questions answered. Patient will follow-up in 4 weeks for weight management. #Morbid obesity: Weight today 214.5 pounds, BMI 40.5. She exercises by playing volleyball and softball twice per week, she mostly focuses on home-cooked meals with protein and vegetables, discussed switching out gym eating breakfast sandwich for her protein shake or smoothie. Discussed weight loss medications. Given MASH, plan for Wegovy 0.25 mg weekly injections. Educated on side effects including nausea, constipation, reflux, heartburn, hair thinning. Will submit PA today. Follow-up in 4 weeks. 11/22/2024: Weight 210.4 pounds, BMI 39.8. She was started on Zepbound 2.5 mg weekly injections, has had 2 injections so far. On review of body composition scan, skeletal muscle mass decreased 0.5 pounds, fat mass decreased 4 pounds. Discussed protein, exercise, hydration goals. Plan to increase to Zepbound 5 mg weekly injections. Follow-up in 4 weeks. #Epigastric pain: Symptoms ongoing for 6 months, no dyspnea on exertion, shortness of breath, palpitations, lightheadedness, abdominal pain. She has been utilizing pantoprazole with no relief. On exam, vital stable. Regular rate and rhythm on cardiac auscultation. Tenderness to palpation over chest wall. Differential includes GERD, costochondritis, ACS. Plan for EKG. Advised patient to utilize pantoprazole daily, along with ibuprofen for 5 days to determine if symptoms improve, making MSK etiology more likely. Plan for routine labs. Advised patient to contact her PCP. Consider echocardiogram and/or stress test in the future. Patient advised to report to the ER if she develops worsening or crushing chest pain, radiation down the left arm, lightheadedness or palpitations. #MASH: Follows with PCP. Discussed exercise, diet, hydration goals. Plan for Wegovy 0.25 mg weekly injections #ANDREA: Continue nocturnal CPAP #Asthma: Well-controlled. Continue albuterol as needed. #Osteoarthritis: Discussed exercise options including walking, biking, resistance training. Patient was reassured and welcomed to the practice. We discussed that we stress a hollistic medical approach with emphasis on lifestyle modification. Patient was informed that a healthy lifestyle with exercise and good eating habits can help reduce his risk of medical complications. Patient is explained that obesity increases his risk of diabetes, cardiovascular disease, or organ damage. We spent a lot of time discussing the relationship between food, exercise, sleep, mental health and obesity. Patient was counseled on the importance EATING local, organic food when possible. Patient was educated on clean 15 and dirty dozen. I provided information about reading books called The Food Rules by Jeremy Patel and Eat Fat Get Lean by Dr Silvino Gomez. Self education is important in the journey for weight management. Patient was offered diagnostic testing/ SECA scale. We want to measure visceral adiposity, advanced body composition, adverse lipids, fatty acid balance, risk for heart disease and atherosclerosis, markers of inflammation and genetic susceptibility. Patient was counseled on weight management and was advised to lose weight using A. Meal Replacement Products Patient was educated on the replacement products called optifast. This is a good way of taking fixed amount of calories. It has been shown in studies to be ineffective weight management tool. This however has to be coupled with lifestyle intervention as well as laboratory data and EKG monitoring. It is impossible to know how a person will tolerate complete meal replacement. The side effects of meal replacement and weight loss could include syncopal attacks, dizziness, gallstones, potential cholecystectomy, possible heart attack and even . The benefits of meal replacement would be potential weight loss but no guarantees can be made. Meal replacement products are not covered by insurance. Once the patient has bought these products we cannot return them B. Lifestyle management which includes several strategies as below 1. Eat a low carbohydrate good fat good protein diet. Eliminate refined carbohydrates from the diet. Limit sugared beverages. Eat local organic when possible. Cook your own meals. Read food labels. Focus on healthy snacks. Portion control and food with low glycemic index 2. Exercise regularly. Try to get at least 6000 steps a day. Use a predominant to track activity level. Consider using apps like 7 minute excercise, myfitnesspal, lose it, stick as needed for self-monitoring and weight management. Consider group exercises. Consider hiring a net trainer. Regular exercise is velazquez to sustainable health and prevents as a buffer against weight regain 3. Sleep is most important for healing. Try to sleep at least 6-8 hours a night. A good quality sleep needs a sleep ritual with ideal room temperature of around 68. It might help to take a shower and have no electronics in the room and sleep in a very dark room without artificial light. Start sleep routine and get up early in the morning and go to bed on time. 4. Make a social connection. Surround yourself with positive people with positive energy. Connect with friends and family. 5. Get into the habit of meditating and mindfulness while doing everything. 6. Go outside and connect with nature. C. Prescription medications Patient was educated on the use of prescription medications for medical weight loss. This is a growing list and includes phentermine, Topamax,Qsymia, contrave, belviq and saxenda, wegovy etc. All prescription medications could have side effects including but not limited to kidney stones, seizure disorder cardiac arrhythmias heart attack pancreatitis, GI effects, Etc. Patient was encouraged to read the prescription insert and have coaching with their pharmacist and make an informed decision about taking medication and know that these medications are being prescribed with good intentions and we do not know how a patient would react to her medication. Some medications are FDA approved for weight loss and there is also off label use depending on patient's inability to afford medications in an attempt to lose weight D. Behavioral counseling was done to establish a relationship between food and an mood. Patient was provided information about local counseling and psychiatry and Dr Marin at [facility]. We would like to cover regular topics and build on low glycemic eating exercise mindful eating, using yoga and meditation along with deep breathing and connecting with friends and family. E. MASS PAT reviewed, Patient's current medications were reviewed and opinion was given on medication that can cause weight gain and can be substituted F. Patient was assessed for risk with obesity including and not limiting to atherosclerosis heart disease stroke kidney disease, restrictive lung disease, irritable bowel syndrome and overall mortality. Risk of developing prediabetes diabetes and metabolic syndrome was discussed G. Therapeutic plan: We have decided to make therapeutic plan which would include choosing wisely on calories restricting portion getting active, tracking weight, getting good quality sleep and working on time management H. Patient will follow up in 4 weeks for weight management Total time spent today was 60 minutes of which greater than 50% was spent on coordinating and counseling Case discussed with collaborating physician Helder Pagan who reviewed the assessment and plan. Chart, medications, labs, vital signs reviewed. Dictation was accomplished with the use of [employer] voice recognition software, prone to medical misidentifications and grammatical errors. This is unintentional and the practitioner does try to identify and correct these, but some could still be present. Please do not hesitate to contact practitioner for clarification. All questions answered to patients satisfaction. Patient verbalized understanding of diagnosis and treatments explained. To call sooner prior to next visit it any questions/concerns arise. 10/16/2024 GERD without esophagitis (ICD-10 - K21.9) Sue is a 54-year-old female with past medical history of obesity, arthritis, fatty liver, and asthma who management consult. Medical history, labs, allergies, medications, and social history reviewed with the patient. Provided education on healthy diet and lifestyle which includes high-protein, low carbohydrate, high-fiber, and a variety of fruits and vegetables. Patient encouraged to exercise with emphasis on resistance training minimum 3 times per week to maintain muscle mass and cardio to burn fat. All patient questions answered. Patient will follow-up in 4 weeks for weight management. #Morbid obesity: Weight today 214.5 pounds, BMI 40.5. She exercises by playing volleyball and softball twice per week, she mostly focuses on home-cooked meals with protein and vegetables, discussed switching out gym eating breakfast sandwich for her protein shake or smoothie. Discussed weight loss medications. Given MASH, plan for Wegovy 0.25 mg weekly injections. Educated on side effects including nausea, constipation, reflux, heartburn, hair thinning. Will submit PA today. Follow-up in 4 weeks. #MASH: Follows with PCP. Discussed exercise, diet, hydration goals. Plan for Wegovy 0.25 mg weekly injections #ANDREA: Continue nocturnal CPAP #Asthma: Well-controlled. Continue albuterol as needed. #Osteoarthritis: Discussed exercise options including walking, biking, resistance training. Patient was reassured and welcomed to the practice. We discussed that we stress a hollistic medical approach with emphasis on lifestyle modification. Patient was informed that a healthy lifestyle with exercise and good eating habits can help reduce his risk of medical complications. Patient is explained that obesity increases his risk of diabetes, cardiovascular disease, or organ damage. We spent a lot of time discussing the relationship between food, exercise, sleep, mental health and obesity. Patient was counseled on the importance EATING local, organic food when possible. Patient was educated on clean 15 and dirty dozen. I provided information about reading books called The Food Rules by Jeremy Patel and Eat Fat Get Lean by Dr Silvino Gomez. Self education is important in the journey for weight management. Patient was offered diagnostic testing/ SECA scale. We want to measure visceral adiposity, advanced body composition, adverse lipids, fatty acid balance, risk for heart disease and atherosclerosis, markers of inflammation and genetic susceptibility. Patient was counseled on weight management and was advised to lose weight using A. Meal Replacement Products Patient was educated on the replacement products called optifast. This is a good way of taking fixed amount of calories. It has been shown in studies to be ineffective weight management tool. This however has to be coupled with lifestyle intervention as well as laboratory data and EKG monitoring. It is impossible to know how a person will tolerate complete meal replacement. The side effects of meal replacement and weight loss could include syncopal attacks, dizziness, gallstones, potential cholecystectomy, possible heart attack and even . The benefits of meal replacement would be potential weight loss but no guarantees can be made. Meal replacement products are not covered by insurance. Once the patient has bought these products we cannot return them B. Lifestyle management which includes several strategies as below 1. Eat a low carbohydrate good fat good protein diet. Eliminate refined carbohydrates from the diet. Limit sugared beverages. Eat local organic when possible. Cook your own meals. Read food labels. Focus on healthy snacks. Portion control and food with low glycemic index 2. Exercise regularly. Try to get at least 6000 steps a day. Use a predominant to track activity level. Consider using apps like 7 minute excercise, myTioga Energypal, lose it, stick as needed for self-monitoring and weight management. Consider group exercises. Consider hiring a net trainer. Regular exercise is velazquez to sustainable health and prevents as a buffer against weight regain 3. Sleep is most important for healing. Try to sleep at least 6-8 hours a night. A good quality sleep needs a sleep ritual with ideal room temperature of around 68. It might help to take a shower and have no electronics in the room and sleep in a very dark room without artificial light. Start sleep routine and get up early in the morning and go to bed on time. 4. Make a social connection. Surround yourself with positive people with positive energy. Connect with friends and family. 5. Get into the habit of meditating and mindfulness while doing everything. 6. Go outside and connect with nature. C. Prescription medications Patient was educated on the use of prescription medications for medical weight loss. This is a growing list and includes phentermine, Topamax,Qsymia, contrave, belviq and saxenda, wegovy etc. All prescription medications could have side effects including but not limited to kidney stones, seizure disorder cardiac arrhythmias heart attack pancreatitis, GI effects, Etc. Patient was encouraged to read the prescription insert and have coaching with their pharmacist and make an informed decision about taking medication and know that these medications are being prescribed with good intentions and we do not know how a patient would react to her medication. Some medications are FDA approved for weight loss and there is also off label use depending on patient's inability to afford medications in an attempt to lose weight D. Behavioral counseling was done to establish a relationship between food and an mood. Patient was provided information about local counseling and psychiatry and Dr Marin at [facility]. We would like to cover regular topics and build on low glycemic eating exercise mindful eating, using yoga and meditation along with deep breathing and connecting with friends and family. E. MASS PAT reviewed, Patient's current medications were reviewed and opinion was given on medication that can cause weight gain and can be substituted F. Patient was assessed for risk with obesity including and not limiting to atherosclerosis heart disease stroke kidney disease, restrictive lung disease, irritable bowel syndrome and overall mortality. Risk of developing prediabetes diabetes and metabolic syndrome was discussed G. Therapeutic plan: We have decided to make therapeutic plan which would include choosing wisely on calories restricting portion getting active, tracking weight, getting good quality sleep and working on time management H. Patient will follow up in 4 weeks for weight management Total time spent today was 60 minutes of which greater than 50% was spent on coordinating and counseling Case discussed with collaborating physician Helder Pagan who reviewed the assessment and plan. Chart, medications, labs, vital signs reviewed. Dictation was accomplished with the use of [employer] voice recognition software, prone to medical misidentifications and grammatical errors. This is unintentional and the practitioner does try to identify and correct these, but some could still be present. Please do not hesitate to contact practitioner for clarification. All questions answered to patients satisfaction. Patient verbalized understanding of diagnosis and treatments explained. To call sooner prior to next visit it any questions/concerns arise. 10/16/2024 ANDREA on CPAP (ICD-10 - G47.33) Sue is a 54-year-old female with past medical history of obesity, arthritis, fatty liver, and asthma who management consult. Medical history, labs, allergies, medications, and social history reviewed with the patient. Provided education on healthy diet and lifestyle which includes high-protein, low carbohydrate, high-fiber, and a variety of fruits and vegetables. Patient encouraged to exercise with emphasis on resistance training minimum 3 times per week to maintain muscle mass and cardio to burn fat. All patient questions answered. Patient will follow-up in 4 weeks for weight management. #Morbid obesity: Weight today 214.5 pounds, BMI 40.5. She exercises by playing volleyball and softball twice per week, she mostly focuses on home-cooked meals with protein and vegetables, discussed switching out gym eating breakfast sandwich for her protein shake or smoothie. Discussed weight loss medications. Given MASH, plan for Wegovy 0.25 mg weekly injections. Educated on side effects including nausea, constipation, reflux, heartburn, hair thinning. Will submit PA today. Follow-up in 4 weeks. #MASH: Follows with PCP. Discussed exercise, diet, hydration goals. Plan for Wegovy 0.25 mg weekly injections #ANDREA: Continue nocturnal CPAP #Asthma: Well-controlled. Continue albuterol as needed. #Osteoarthritis: Discussed exercise options including walking, biking, resistance training. Patient was reassured and welcomed to the practice. We discussed that we stress a hollistic medical approach with emphasis on lifestyle modification. Patient was informed that a healthy lifestyle with exercise and good eating habits can help reduce his risk of medical complications. Patient is explained that obesity increases his risk of diabetes, cardiovascular disease, or organ damage. We spent a lot of time discussing the relationship between food, exercise, sleep, mental health and obesity. Patient was counseled on the importance EATING local, organic food when possible. Patient was educated on clean 15 and dirty dozen. I provided information about reading books called The Food Rules by Jereym Patel and Eat Fat Get Lean by Dr Silvino Gomez. Self education is important in the journey for weight management. Patient was offered diagnostic testing/ SECA scale. We want to measure visceral adiposity, advanced body composition, adverse lipids, fatty acid balance, risk for heart disease and atherosclerosis, markers of inflammation and genetic susceptibility. Patient was counseled on weight management and was advised to lose weight using A. Meal Replacement Products Patient was educated on the replacement products called optifast. This is a good way of taking fixed amount of calories. It has been shown in studies to be ineffective weight management tool. This however has to be coupled with lifestyle intervention as well as laboratory data and EKG monitoring. It is impossible to know how a person will tolerate complete meal replacement. The side effects of meal replacement and weight loss could include syncopal attacks, dizziness, gallstones, potential cholecystectomy, possible heart attack and even . The benefits of meal replacement would be potential weight loss but no guarantees can be made. Meal replacement products are not covered by insurance. Once the patient has bought these products we cannot return them B. Lifestyle management which includes several strategies as below 1. Eat a low carbohydrate good fat good protein diet. Eliminate refined carbohydrates from the diet. Limit sugared beverages. Eat local organic when possible. Cook your own meals. Read food labels. Focus on healthy snacks. Portion control and food with low glycemic index 2. Exercise regularly. Try to get at least 6000 steps a day. Use a predominant to track activity level. Consider using apps like 7 minute excercise, myfitAptiblepal, lose it, stick as needed for self-monitoring and weight management. Consider group exercises. Consider hiring a net trainer. Regular exercise is velazquez to sustainable health and prevents as a buffer against weight regain 3. Sleep is most important for healing. Try to sleep at least 6-8 hours a night. A good quality sleep needs a sleep ritual with ideal room temperature of around 68. It might help to take a shower and have no electronics in the room and sleep in a very dark room without artificial light. Start sleep routine and get up early in the morning and go to bed on time. 4. Make a social connection. Surround yourself with positive people with positive energy. Connect with friends and family. 5. Get into the habit of meditating and mindfulness while doing everything. 6. Go outside and connect with nature. C. Prescription medications Patient was educated on the use of prescription medications for medical weight loss. This is a growing list and includes phentermine, Topamax,Qsymia, contrave, belviq and saxenda, wegovy etc. All prescription medications could have side effects including but not limited to kidney stones, seizure disorder cardiac arrhythmias heart attack pancreatitis, GI effects, Etc. Patient was encouraged to read the prescription insert and have coaching with their pharmacist and make an informed decision about taking medication and know that these medications are being prescribed with good intentions and we do not know how a patient would react to her medication. Some medications are FDA approved for weight loss and there is also off label use depending on patient's inability to afford medications in an attempt to lose weight D. Behavioral counseling was done to establish a relationship between food and an mood. Patient was provided information about local counseling and psychiatry and Dr Marin at [facility]. We would like to cover regular topics and build on low glycemic eating exercise mindful eating, using yoga and meditation along with deep breathing and connecting with friends and family. E. MASS PAT reviewed, Patient's current medications were reviewed and opinion was given on medication that can cause weight gain and can be substituted F. Patient was assessed for risk with obesity including and not limiting to atherosclerosis heart disease stroke kidney disease, restrictive lung disease, irritable bowel syndrome and overall mortality. Risk of developing prediabetes diabetes and metabolic syndrome was discussed G. Therapeutic plan: We have decided to make therapeutic plan which would include choosing wisely on calories restricting portion getting active, tracking weight, getting good quality sleep and working on time management H. Patient will follow up in 4 weeks for weight management Total time spent today was 60 minutes of which greater than 50% was spent on coordinating and counseling Case discussed with collaborating physician Helder Pagan who reviewed the assessment and plan. Chart, medications, labs, vital signs reviewed. Dictation was accomplished with the use of [employer] voice recognition software, prone to medical misidentifications and grammatical errors. This is unintentional and the practitioner does try to identify and correct these, but some could still be present. Please do not hesitate to contact practitioner for clarification. All questions answered to patients satisfaction. Patient verbalized understanding of diagnosis and treatments explained. To call sooner prior to next visit it any questions/concerns arise. 11/22/2024 ANDREA on CPAP (ICD-10 - G47.33) Sue is a 54-year-old female with past medical history of obesity, arthritis, fatty liver, and asthma who management consult. Medical history, labs, allergies, medications, and social history reviewed with the patient. Provided education on healthy diet and lifestyle which includes high-protein, low carbohydrate, high-fiber, and a variety of fruits and vegetables. Patient encouraged to exercise with emphasis on resistance training minimum 3 times per week to maintain muscle mass and cardio to burn fat. All patient questions answered. Patient will follow-up in 4 weeks for weight management. #Morbid obesity: Weight today 214.5 pounds, BMI 40.5. She exercises by playing volleyball and softball twice per week, she mostly focuses on home-cooked meals with protein and vegetables, discussed switching out gym eating breakfast sandwich for her protein shake or smoothie. Discussed weight loss medications. Given LOUIE, plan for Wegovy 0.25 mg weekly injections. Educated on side effects including nausea, constipation, reflux, heartburn, hair thinning. Will submit PA today. Follow-up in 4 weeks. 11/22/2024: Weight 210.4 pounds, BMI 39.8. She was started on Zepbound 2.5 mg weekly injections, has had 2 injections so far. On review of body composition scan, skeletal muscle mass decreased 0.5 pounds, fat mass decreased 4 pounds. Discussed protein, exercise, hydration goals. Plan to increase to Zepbound 5 mg weekly injections. Follow-up in 4 weeks. #Epigastric pain: Symptoms ongoing for 6 months, no dyspnea on exertion, shortness of breath, palpitations, lightheadedness, abdominal pain. She has been utilizing pantoprazole with no relief. On exam, vital stable. Regular rate and rhythm on cardiac auscultation. Tenderness to palpation over chest wall. Differential includes GERD, costochondritis, ACS. Plan for EKG. Advised patient to utilize pantoprazole daily, along with ibuprofen for 5 days to determine if symptoms improve, making MSK etiology more likely. Plan for routine labs. Advised patient to contact her PCP. Consider echocardiogram and/or stress test in the future. Patient advised to report to the ER if she develops worsening or crushing chest pain, radiation down the left arm, lightheadedness or palpitations. #MASH: Follows with PCP. Discussed exercise, diet, hydration goals. Plan for Wegovy 0.25 mg weekly injections #ANDREA: Continue nocturnal CPAP #Asthma: Well-controlled. Continue albuterol as needed. #Osteoarthritis: Discussed exercise options including walking, biking, resistance training. Patient was reassured and welcomed to the practice. We discussed that we stress a hollistic medical approach with emphasis on lifestyle modification. Patient was informed that a healthy lifestyle with exercise and good eating habits can help reduce his risk of medical complications. Patient is explained that obesity increases his risk of diabetes, cardiovascular disease, or organ damage. We spent a lot of time discussing the relationship between food, exercise, sleep, mental health and obesity. Patient was counseled on the importance EATING local, organic food when possible. Patient was educated on clean 15 and dirty dozen. I provided information about reading books called The Food Rules by Jeremy Patel and Eat Fat Get Lean by Dr Silvino Gomez. Self education is important in the journey for weight management. Patient was offered diagnostic testing/ SECA scale. We want to measure visceral adiposity, advanced body composition, adverse lipids, fatty acid balance, risk for heart disease and atherosclerosis, markers of inflammation and genetic susceptibility. Patient was counseled on weight management and was advised to lose weight using A. Meal Replacement Products Patient was educated on the replacement products called optifast. This is a good way of taking fixed amount of calories. It has been shown in studies to be ineffective weight management tool. This however has to be coupled with lifestyle intervention as well as laboratory data and EKG monitoring. It is impossible to know how a person will tolerate complete meal replacement. The side effects of meal replacement and weight loss could include syncopal attacks, dizziness, gallstones, potential cholecystectomy, possible heart attack and even . The benefits of meal replacement would be potential weight loss but no guarantees can be made. Meal replacement products are not covered by insurance. Once the patient has bought these products we cannot return them B. Lifestyle management which includes several strategies as below 1. Eat a low carbohydrate good fat good protein diet. Eliminate refined carbohydrates from the diet. Limit sugared beverages. Eat local organic when possible. Cook your own meals. Read food labels. Focus on healthy snacks. Portion control and food with low glycemic index 2. Exercise regularly. Try to get at least 6000 steps a day. Use a predominant to track activity level. Consider using apps like 7 minute excercise, myfitnesspal, lose it, stick as needed for self-monitoring and weight management. Consider group exercises. Consider hiring a net trainer. Regular exercise is velazquez to sustainable health and prevents as a buffer against weight regain 3. Sleep is most important for healing. Try to sleep at least 6-8 hours a night. A good quality sleep needs a sleep ritual with ideal room temperature of around 68. It might help to take a shower and have no electronics in the room and sleep in a very dark room without artificial light. Start sleep routine and get up early in the morning and go to bed on time. 4. Make a social connection. Surround yourself with positive people with positive energy. Connect with friends and family. 5. Get into the habit of meditating and mindfulness while doing everything. 6. Go outside and connect with nature. C. Prescription medications Patient was educated on the use of prescription medications for medical weight loss. This is a growing list and includes phentermine, Topamax,Qsymia, contrave, belviq and saxenda, wegovy etc. All prescription medications could have side effects including but not limited to kidney stones, seizure disorder cardiac arrhythmias heart attack pancreatitis, GI effects, Etc. Patient was encouraged to read the prescription insert and have coaching with their pharmacist and make an informed decision about taking medication and know that these medications are being prescribed with good intentions and we do not know how a patient would react to her medication. Some medications are FDA approved for weight loss and there is also off label use depending on patient's inability to afford medications in an attempt to lose weight D. Behavioral counseling was done to establish a relationship between food and an mood. Patient was provided information about local counseling and psychiatry and Dr Marin at [facility]. We would like to cover regular topics and build on low glycemic eating exercise mindful eating, using yoga and meditation along with deep breathing and connecting with friends and family. E. MASS PAT reviewed, Patient's current medications were reviewed and opinion was given on medication that can cause weight gain and can be substituted F. Patient was assessed for risk with obesity including and not limiting to atherosclerosis heart disease stroke kidney disease, restrictive lung disease, irritable bowel syndrome and overall mortality. Risk of developing prediabetes diabetes and metabolic syndrome was discussed G. Therapeutic plan: We have decided to make therapeutic plan which would include choosing wisely on calories restricting portion getting active, tracking weight, getting good quality sleep and working on time management H. Patient will follow up in 4 weeks for weight management Total time spent today was 60 minutes of which greater than 50% was spent on coordinating and counseling Case discussed with collaborating physician Helder Pagan who reviewed the assessment and plan. Chart, medications, labs, vital signs reviewed. Dictation was accomplished with the use of [employer] voice recognition software, prone to medical misidentifications and grammatical errors. This is unintentional and the practitioner does try to identify and correct these, but some could still be present. Please do not hesitate to contact practitioner for clarification. All questions answered to patients satisfaction. Patient verbalized understanding of diagnosis and treatments explained. To call sooner prior to next visit it any questions/concerns arise. 11/22/2024 Osteoarthritis (ICD-10 - M19.90) Sue is a 54-year-old female with past medical history of obesity, arthritis, fatty liver, and asthma who management consult. Medical history, labs, allergies, medications, and social history reviewed with the patient. Provided education on healthy diet and lifestyle which includes high-protein, low carbohydrate, high-fiber, and a variety of fruits and vegetables. Patient encouraged to exercise with emphasis on resistance training minimum 3 times per week to maintain muscle mass and cardio to burn fat. All patient questions answered. Patient will follow-up in 4 weeks for weight management. #Morbid obesity: Weight today 214.5 pounds, BMI 40.5. She exercises by playing volleyball and softball twice per week, she mostly focuses on home-cooked meals with protein and vegetables, discussed switching out gym eating breakfast sandwich for her protein shake or smoothie. Discussed weight loss medications. Given MASH, plan for Wegovy 0.25 mg weekly injections. Educated on side effects including nausea, constipation, reflux, heartburn, hair thinning. Will submit PA today. Follow-up in 4 weeks. 11/22/2024: Weight 210.4 pounds, BMI 39.8. She was started on Zepbound 2.5 mg weekly injections, has had 2 injections so far. On review of body composition scan, skeletal muscle mass decreased 0.5 pounds, fat mass decreased 4 pounds. Discussed protein, exercise, hydration goals. Plan to increase to Zepbound 5 mg weekly injections. Follow-up in 4 weeks. #Epigastric pain: Symptoms ongoing for 6 months, no dyspnea on exertion, shortness of breath, palpitations, lightheadedness, abdominal pain. She has been utilizing pantoprazole with no relief. On exam, vital stable. Regular rate and rhythm on cardiac auscultation. Tenderness to palpation over chest wall. Differential includes GERD, costochondritis, ACS. Plan for EKG. Advised patient to utilize pantoprazole daily, along with ibuprofen for 5 days to determine if symptoms improve, making MSK etiology more likely. Plan for routine labs. Advised patient to contact her PCP. Consider echocardiogram and/or stress test in the future. Patient advised to report to the ER if she develops worsening or crushing chest pain, radiation down the left arm, lightheadedness or palpitations. #MASH: Follows with PCP. Discussed exercise, diet, hydration goals. Plan for Wegovy 0.25 mg weekly injections #ANDREA: Continue nocturnal CPAP #Asthma: Well-controlled. Continue albuterol as needed. #Osteoarthritis: Discussed exercise options including walking, biking, resistance training. Patient was reassured and welcomed to the practice. We discussed that we stress a hollistic medical approach with emphasis on lifestyle modification. Patient was informed that a healthy lifestyle with exercise and good eating habits can help reduce his risk of medical complications. Patient is explained that obesity increases his risk of diabetes, cardiovascular disease, or organ damage. We spent a lot of time discussing the relationship between food, exercise, sleep, mental health and obesity. Patient was counseled on the importance EATING local, organic food when possible. Patient was educated on clean 15 and dirty dozen. I provided information about reading books called The Food Rules by Jeremy Patel and Eat Fat Get Lean by Dr Silvino Gomez. Self education is important in the journey for weight management. Patient was offered diagnostic testing/ SECA scale. We want to measure visceral adiposity, advanced body composition, adverse lipids, fatty acid balance, risk for heart disease and atherosclerosis, markers of inflammation and genetic susceptibility. Patient was counseled on weight management and was advised to lose weight using A. Meal Replacement Products Patient was educated on the replacement products called optifast. This is a good way of taking fixed amount of calories. It has been shown in studies to be ineffective weight management tool. This however has to be coupled with lifestyle intervention as well as laboratory data and EKG monitoring. It is impossible to know how a person will tolerate complete meal replacement. The side effects of meal replacement and weight loss could include syncopal attacks, dizziness, gallstones, potential cholecystectomy, possible heart attack and even . The benefits of meal replacement would be potential weight loss but no guarantees can be made. Meal replacement products are not covered by insurance. Once the patient has bought these products we cannot return them B. Lifestyle management which includes several strategies as below 1. Eat a low carbohydrate good fat good protein diet. Eliminate refined carbohydrates from the diet. Limit sugared beverages. Eat local organic when possible. Cook your own meals. Read food labels. Focus on healthy snacks. Portion control and food with low glycemic index 2. Exercise regularly. Try to get at least 6000 steps a day. Use a predominant to track activity level. Consider using apps like 7 minute excercise, myfitnesspal, lose it, stick as needed for self-monitoring and weight management. Consider group exercises. Consider hiring a net trainer. Regular exercise is velazquez to sustainable health and prevents as a buffer against weight regain 3. Sleep is most important for healing. Try to sleep at least 6-8 hours a night. A good quality sleep needs a sleep ritual with ideal room temperature of around 68. It might help to take a shower and have no electronics in the room and sleep in a very dark room without artificial light. Start sleep routine and get up early in the morning and go to bed on time. 4. Make a social connection. Surround yourself with positive people with positive energy. Connect with friends and family. 5. Get into the habit of meditating and mindfulness while doing everything. 6. Go outside and connect with nature. C. Prescription medications Patient was educated on the use of prescription medications for medical weight loss. This is a growing list and includes phentermine, Topamax,Qsymia, contrave, belviq and saxenda, wegovy etc. All prescription medications could have side effects including but not limited to kidney stones, seizure disorder cardiac arrhythmias heart attack pancreatitis, GI effects, Etc. Patient was encouraged to read the prescription insert and have coaching with their pharmacist and make an informed decision about taking medication and know that these medications are being prescribed with good intentions and we do not know how a patient would react to her medication. Some medications are FDA approved for weight loss and there is also off label use depending on patient's inability to afford medications in an attempt to lose weight D. Behavioral counseling was done to establish a relationship between food and an mood. Patient was provided information about local counseling and psychiatry and Dr Marin at [facility]. We would like to cover regular topics and build on low glycemic eating exercise mindful eating, using yoga and meditation along with deep breathing and connecting with friends and family. E. MASS PAT reviewed, Patient's current medications were reviewed and opinion was given on medication that can cause weight gain and can be substituted F. Patient was assessed for risk with obesity including and not limiting to atherosclerosis heart disease stroke kidney disease, restrictive lung disease, irritable bowel syndrome and overall mortality. Risk of developing prediabetes diabetes and metabolic syndrome was discussed G. Therapeutic plan: We have decided to make therapeutic plan which would include choosing wisely on calories restricting portion getting active, tracking weight, getting good quality sleep and working on time management H. Patient will follow up in 4 weeks for weight management Total time spent today was 60 minutes of which greater than 50% was spent on coordinating and counseling Case discussed with collaborating physician Helder Pagan who reviewed the assessment and plan. Chart, medications, labs, vital signs reviewed. Dictation was accomplished with the use of [employer] voice recognition software, prone to medical misidentifications and grammatical errors. This is unintentional and the practitioner does try to identify and correct these, but some could still be present. Please do not hesitate to contact practitioner for clarification. All questions answered to patients satisfaction. Patient verbalized understanding of diagnosis and treatments explained. To call sooner prior to next visit it any questions/concerns arise. 10/16/2024 Osteoarthritis (ICD-10 - M19.90) Sue is a 54-year-old female with past medical history of obesity, arthritis, fatty liver, and asthma who management consult. Medical history, labs, allergies, medications, and social history reviewed with the patient. Provided education on healthy diet and lifestyle which includes high-protein, low carbohydrate, high-fiber, and a variety of fruits and vegetables. Patient encouraged to exercise with emphasis on resistance training minimum 3 times per week to maintain muscle mass and cardio to burn fat. All patient questions answered. Patient will follow-up in 4 weeks for weight management. #Morbid obesity: Weight today 214.5 pounds, BMI 40.5. She exercises by playing volleyball and softball twice per week, she mostly focuses on home-cooked meals with protein and vegetables, discussed switching out gym eating breakfast sandwich for her protein shake or smoothie. Discussed weight loss medications. Given MASH, plan for Wegovy 0.25 mg weekly injections. Educated on side effects including nausea, constipation, reflux, heartburn, hair thinning. Will submit PA today. Follow-up in 4 weeks. #MASH: Follows with PCP. Discussed exercise, diet, hydration goals. Plan for Wegovy 0.25 mg weekly injections #ANDREA: Continue nocturnal CPAP #Asthma: Well-controlled. Continue albuterol as needed. #Osteoarthritis: Discussed exercise options including walking, biking, resistance training. Patient was reassured and welcomed to the practice. We discussed that we stress a hollistic medical approach with emphasis on lifestyle modification. Patient was informed that a healthy lifestyle with exercise and good eating habits can help reduce his risk of medical complications. Patient is explained that obesity increases his risk of diabetes, cardiovascular disease, or organ damage. We spent a lot of time discussing the relationship between food, exercise, sleep, mental health and obesity. Patient was counseled on the importance EATING local, organic food when possible. Patient was educated on clean 15 and dirty dozen. I provided information about reading books called The Food Rules by Jeremy Patel and Eat Fat Get Lean by Dr Silvino Gomez. Self education is important in the journey for weight management. Patient was offered diagnostic testing/ SECA scale. We want to measure visceral adiposity, advanced body composition, adverse lipids, fatty acid balance, risk for heart disease and atherosclerosis, markers of inflammation and genetic susceptibility. Patient was counseled on weight management and was advised to lose weight using A. Meal Replacement Products Patient was educated on the replacement products called optifast. This is a good way of taking fixed amount of calories. It has been shown in studies to be ineffective weight management tool. This however has to be coupled with lifestyle intervention as well as laboratory data and EKG monitoring. It is impossible to know how a person will tolerate complete meal replacement. The side effects of meal replacement and weight loss could include syncopal attacks, dizziness, gallstones, potential cholecystectomy, possible heart attack and even . The benefits of meal replacement would be potential weight loss but no guarantees can be made. Meal replacement products are not covered by insurance. Once the patient has bought these products we cannot return them B. Lifestyle management which includes several strategies as below 1. Eat a low carbohydrate good fat good protein diet. Eliminate refined carbohydrates from the diet. Limit sugared beverages. Eat local organic when possible. Cook your own meals. Read food labels. Focus on healthy snacks. Portion control and food with low glycemic index 2. Exercise regularly. Try to get at least 6000 steps a day. Use a predominant to track activity level. Consider using apps like 7 minute excercise, myTioga Energypal, lose it, stick as needed for self-monitoring and weight management. Consider group exercises. Consider hiring a net trainer. Regular exercise is velazquez to sustainable health and prevents as a buffer against weight regain 3. Sleep is most important for healing. Try to sleep at least 6-8 hours a night. A good quality sleep needs a sleep ritual with ideal room temperature of around 68. It might help to take a shower and have no electronics in the room and sleep in a very dark room without artificial light. Start sleep routine and get up early in the morning and go to bed on time. 4. Make a social connection. Surround yourself with positive people with positive energy. Connect with friends and family. 5. Get into the habit of meditating and mindfulness while doing everything. 6. Go outside and connect with nature. C. Prescription medications Patient was educated on the use of prescription medications for medical weight loss. This is a growing list and includes phentermine, Topamax,Qsymia, contrave, belviq and saxenda, wegovy etc. All prescription medications could have side effects including but not limited to kidney stones, seizure disorder cardiac arrhythmias heart attack pancreatitis, GI effects, Etc. Patient was encouraged to read the prescription insert and have coaching with their pharmacist and make an informed decision about taking medication and know that these medications are being prescribed with good intentions and we do not know how a patient would react to her medication. Some medications are FDA approved for weight loss and there is also off label use depending on patient's inability to afford medications in an attempt to lose weight D. Behavioral counseling was done to establish a relationship between food and an mood. Patient was provided information about local counseling and psychiatry and Dr Marin at [facility]. We would like to cover regular topics and build on low glycemic eating exercise mindful eating, using yoga and meditation along with deep breathing and connecting with friends and family. E. MASS PAT reviewed, Patient's current medications were reviewed and opinion was given on medication that can cause weight gain and can be substituted F. Patient was assessed for risk with obesity including and not limiting to atherosclerosis heart disease stroke kidney disease, restrictive lung disease, irritable bowel syndrome and overall mortality. Risk of developing prediabetes diabetes and metabolic syndrome was discussed G. Therapeutic plan: We have decided to make therapeutic plan which would include choosing wisely on calories restricting portion getting active, tracking weight, getting good quality sleep and working on time management H. Patient will follow up in 4 weeks for weight management Total time spent today was 60 minutes of which greater than 50% was spent on coordinating and counseling Case discussed with collaborating physician Helder Pagan who reviewed the assessment and plan. Chart, medications, labs, vital signs reviewed. Dictation was accomplished with the use of [employer] voice recognition software, prone to medical misidentifications and grammatical errors. This is unintentional and the practitioner does try to identify and correct these, but some could still be present. Please do not hesitate to contact practitioner for clarification. All questions answered to patients satisfaction. Patient verbalized understanding of diagnosis and treatments explained. To call sooner prior to next visit it any questions/concerns arise. 10/16/2024 Asthma (ICD-10 - J45.909) Sue is a 54-year-old female with past medical history of obesity, arthritis, fatty liver, and asthma who management consult. Medical history, labs, allergies, medications, and social history reviewed with the patient. Provided education on healthy diet and lifestyle which includes high-protein, low carbohydrate, high-fiber, and a variety of fruits and vegetables. Patient encouraged to exercise with emphasis on resistance training minimum 3 times per week to maintain muscle mass and cardio to burn fat. All patient questions answered. Patient will follow-up in 4 weeks for weight management. #Morbid obesity: Weight today 214.5 pounds, BMI 40.5. She exercises by playing volleyball and softball twice per week, she mostly focuses on home-cooked meals with protein and vegetables, discussed switching out gym eating breakfast sandwich for her protein shake or smoothie. Discussed weight loss medications. Given MASH, plan for Wegovy 0.25 mg weekly injections. Educated on side effects including nausea, constipation, reflux, heartburn, hair thinning. Will submit PA today. Follow-up in 4 weeks. #MASH: Follows with PCP. Discussed exercise, diet, hydration goals. Plan for Wegovy 0.25 mg weekly injections #ANDREA: Continue nocturnal CPAP #Asthma: Well-controlled. Continue albuterol as needed. #Osteoarthritis: Discussed exercise options including walking, biking, resistance training. Patient was reassured and welcomed to the practice. We discussed that we stress a hollistic medical approach with emphasis on lifestyle modification. Patient was informed that a healthy lifestyle with exercise and good eating habits can help reduce his risk of medical complications. Patient is explained that obesity increases his risk of diabetes, cardiovascular disease, or organ damage. We spent a lot of time discussing the relationship between food, exercise, sleep, mental health and obesity. Patient was counseled on the importance EATING local, organic food when possible. Patient was educated on clean 15 and dirty dozen. I provided information about reading books called The Food Rules by Jeremy Patel and Eat Fat Get Lean by Dr Silvino Gomez. Self education is important in the journey for weight management. Patient was offered diagnostic testing/ SECA scale. We want to measure visceral adiposity, advanced body composition, adverse lipids, fatty acid balance, risk for heart disease and atherosclerosis, markers of inflammation and genetic susceptibility. Patient was counseled on weight management and was advised to lose weight using A. Meal Replacement Products Patient was educated on the replacement products called optifast. This is a good way of taking fixed amount of calories. It has been shown in studies to be ineffective weight management tool. This however has to be coupled with lifestyle intervention as well as laboratory data and EKG monitoring. It is impossible to know how a person will tolerate complete meal replacement. The side effects of meal replacement and weight loss could include syncopal attacks, dizziness, gallstones, potential cholecystectomy, possible heart attack and even . The benefits of meal replacement would be potential weight loss but no guarantees can be made. Meal replacement products are not covered by insurance. Once the patient has bought these products we cannot return them B. Lifestyle management which includes several strategies as below 1. Eat a low carbohydrate good fat good protein diet. Eliminate refined carbohydrates from the diet. Limit sugared beverages. Eat local organic when possible. Cook your own meals. Read food labels. Focus on healthy snacks. Portion control and food with low glycemic index 2. Exercise regularly. Try to get at least 6000 steps a day. Use a predominant to track activity level. Consider using apps like 7 minute excercise, myfitnesspal, lose it, stick as needed for self-monitoring and weight management. Consider group exercises. Consider hiring a net trainer. Regular exercise is velazquez to sustainable health and prevents as a buffer against weight regain 3. Sleep is most important for healing. Try to sleep at least 6-8 hours a night. A good quality sleep needs a sleep ritual with ideal room temperature of around 68. It might help to take a shower and have no electronics in the room and sleep in a very dark room without artificial light. Start sleep routine and get up early in the morning and go to bed on time. 4. Make a social connection. Surround yourself with positive people with positive energy. Connect with friends and family. 5. Get into the habit of meditating and mindfulness while doing everything. 6. Go outside and connect with nature. C. Prescription medications Patient was educated on the use of prescription medications for medical weight loss. This is a growing list and includes phentermine, Topamax,Qsymia, contrave, belviq and saxenda, wegovy etc. All prescription medications could have side effects including but not limited to kidney stones, seizure disorder cardiac arrhythmias heart attack pancreatitis, GI effects, Etc. Patient was encouraged to read the prescription insert and have coaching with their pharmacist and make an informed decision about taking medication and know that these medications are being prescribed with good intentions and we do not know how a patient would react to her medication. Some medications are FDA approved for weight loss and there is also off label use depending on patient's inability to afford medications in an attempt to lose weight D. Behavioral counseling was done to establish a relationship between food and an mood. Patient was provided information about local counseling and psychiatry and Dr Marin at [facility]. We would like to cover regular topics and build on low glycemic eating exercise mindful eating, using yoga and meditation along with deep breathing and connecting with friends and family. E. MASS PAT reviewed, Patient's current medications were reviewed and opinion was given on medication that can cause weight gain and can be substituted F. Patient was assessed for risk with obesity including and not limiting to atherosclerosis heart disease stroke kidney disease, restrictive lung disease, irritable bowel syndrome and overall mortality. Risk of developing prediabetes diabetes and metabolic syndrome was discussed G. Therapeutic plan: We have decided to make therapeutic plan which would include choosing wisely on calories restricting portion getting active, tracking weight, getting good quality sleep and working on time management H. Patient will follow up in 4 weeks for weight management Total time spent today was 60 minutes of which greater than 50% was spent on coordinating and counseling Case discussed with collaborating physician Helder Pagan who reviewed the assessment and plan. Chart, medications, labs, vital signs reviewed. Dictation was accomplished with the use of [employer] voice recognition software, prone to medical misidentifications and grammatical errors. This is unintentional and the practitioner does try to identify and correct these, but some could still be present. Please do not hesitate to contact practitioner for clarification. All questions answered to patients satisfaction. Patient verbalized understanding of diagnosis and treatments explained. To call sooner prior to next visit it any questions/concerns arise. 11/22/2024 Asthma (ICD-10 - J45.909) Sue is a 54-year-old female with past medical history of obesity, arthritis, fatty liver, and asthma who management consult. Medical history, labs, allergies, medications, and social history reviewed with the patient. Provided education on healthy diet and lifestyle which includes high-protein, low carbohydrate, high-fiber, and a variety of fruits and vegetables. Patient encouraged to exercise with emphasis on resistance training minimum 3 times per week to maintain muscle mass and cardio to burn fat. All patient questions answered. Patient will follow-up in 4 weeks for weight management. #Morbid obesity: Weight today 214.5 pounds, BMI 40.5. She exercises by playing volleyball and softball twice per week, she mostly focuses on home-cooked meals with protein and vegetables, discussed switching out gym eating breakfast sandwich for her protein shake or smoothie. Discussed weight loss medications. Given MASH, plan for Wegovy 0.25 mg weekly injections. Educated on side effects including nausea, constipation, reflux, heartburn, hair thinning. Will submit PA today. Follow-up in 4 weeks. 11/22/2024: Weight 210.4 pounds, BMI 39.8. She was started on Zepbound 2.5 mg weekly injections, has had 2 injections so far. On review of body composition scan, skeletal muscle mass decreased 0.5 pounds, fat mass decreased 4 pounds. Discussed protein, exercise, hydration goals. Plan to increase to Zepbound 5 mg weekly injections. Follow-up in 4 weeks. #Epigastric pain: Symptoms ongoing for 6 months, no dyspnea on exertion, shortness of breath, palpitations, lightheadedness, abdominal pain. She has been utilizing pantoprazole with no relief. On exam, vital stable. Regular rate and rhythm on cardiac auscultation. Tenderness to palpation over chest wall. Differential includes GERD, costochondritis, ACS. Plan for EKG. Advised patient to utilize pantoprazole daily, along with ibuprofen for 5 days to determine if symptoms improve, making MSK etiology more likely. Plan for routine labs. Advised patient to contact her PCP. Consider echocardiogram and/or stress test in the future. Patient advised to report to the ER if she develops worsening or crushing chest pain, radiation down the left arm, lightheadedness or palpitations. #MASH: Follows with PCP. Discussed exercise, diet, hydration goals. Plan for Wegovy 0.25 mg weekly injections #ANDREA: Continue nocturnal CPAP #Asthma: Well-controlled. Continue albuterol as needed. #Osteoarthritis: Discussed exercise options including walking, biking, resistance training. Patient was reassured and welcomed to the practice. We discussed that we stress a hollistic medical approach with emphasis on lifestyle modification. Patient was informed that a healthy lifestyle with exercise and good eating habits can help reduce his risk of medical complications. Patient is explained that obesity increases his risk of diabetes, cardiovascular disease, or organ damage. We spent a lot of time discussing the relationship between food, exercise, sleep, mental health and obesity. Patient was counseled on the importance EATING local, organic food when possible. Patient was educated on clean 15 and dirty dozen. I provided information about reading books called The Food Rules by Jeremy Patel and Eat Fat Get Lean by Dr Silvino Gomez. Self education is important in the journey for weight management. Patient was offered diagnostic testing/ SECA scale. We want to measure visceral adiposity, advanced body composition, adverse lipids, fatty acid balance, risk for heart disease and atherosclerosis, markers of inflammation and genetic susceptibility. Patient was counseled on weight management and was advised to lose weight using A. Meal Replacement Products Patient was educated on the replacement products called optifast. This is a good way of taking fixed amount of calories. It has been shown in studies to be ineffective weight management tool. This however has to be coupled with lifestyle intervention as well as laboratory data and EKG monitoring. It is impossible to know how a person will tolerate complete meal replacement. The side effects of meal replacement and weight loss could include syncopal attacks, dizziness, gallstones, potential cholecystectomy, possible heart attack and even . The benefits of meal replacement would be potential weight loss but no guarantees can be made. Meal replacement products are not covered by insurance. Once the patient has bought these products we cannot return them B. Lifestyle management which includes several strategies as below 1. Eat a low carbohydrate good fat good protein diet. Eliminate refined carbohydrates from the diet. Limit sugared beverages. Eat local organic when possible. Cook your own meals. Read food labels. Focus on healthy snacks. Portion control and food with low glycemic index 2. Exercise regularly. Try to get at least 6000 steps a day. Use a predominant to track activity level. Consider using apps like 7 minute excercise, myfitnesspal, lose it, stick as needed for self-monitoring and weight management. Consider group exercises. Consider hiring a net trainer. Regular exercise is velazquez to sustainable health and prevents as a buffer against weight regain 3. Sleep is most important for healing. Try to sleep at least 6-8 hours a night. A good quality sleep needs a sleep ritual with ideal room temperature of around 68. It might help to take a shower and have no electronics in the room and sleep in a very dark room without artificial light. Start sleep routine and get up early in the morning and go to bed on time. 4. Make a social connection. Surround yourself with positive people with positive energy. Connect with friends and family. 5. Get into the habit of meditating and mindfulness while doing everything. 6. Go outside and connect with nature. C. Prescription medications Patient was educated on the use of prescription medications for medical weight loss. This is a growing list and includes phentermine, Topamax,Qsymia, contrave, belviq and saxenda, wegovy etc. All prescription medications could have side effects including but not limited to kidney stones, seizure disorder cardiac arrhythmias heart attack pancreatitis, GI effects, Etc. Patient was encouraged to read the prescription insert and have coaching with their pharmacist and make an informed decision about taking medication and know that these medications are being prescribed with good intentions and we do not know how a patient would react to her medication. Some medications are FDA approved for weight loss and there is also off label use depending on patient's inability to afford medications in an attempt to lose weight D. Behavioral counseling was done to establish a relationship between food and an mood. Patient was provided information about local counseling and psychiatry and Dr Marin at [facility]. We would like to cover regular topics and build on low glycemic eating exercise mindful eating, using yoga and meditation along with deep breathing and connecting with friends and family. E. MASS PAT reviewed, Patient's current medications were reviewed and opinion was given on medication that can cause weight gain and can be substituted F. Patient was assessed for risk with obesity including and not limiting to atherosclerosis heart disease stroke kidney disease, restrictive lung disease, irritable bowel syndrome and overall mortality. Risk of developing prediabetes diabetes and metabolic syndrome was discussed G. Therapeutic plan: We have decided to make therapeutic plan which would include choosing wisely on calories restricting portion getting active, tracking weight, getting good quality sleep and working on time management H. Patient will follow up in 4 weeks for weight management Total time spent today was 60 minutes of which greater than 50% was spent on coordinating and counseling Case discussed with collaborating physician Helder Pagan who reviewed the assessment and plan. Chart, medications, labs, vital signs reviewed. Dictation was accomplished with the use of [employer] voice recognition software, prone to medical misidentifications and grammatical errors. This is unintentional and the practitioner does try to identify and correct these, but some could still be present. Please do not hesitate to contact practitioner for clarification. All questions answered to patients satisfaction. Patient verbalized understanding of diagnosis and treatments explained. To call sooner prior to next visit it any questions/concerns arise. 11/22/2024 Encounter for examination of blood pressure without abnormal findings (ICD-10 - Z01.30) Sue is a 54-year-old female with past medical history of obesity, arthritis, fatty liver, and asthma who management consult. Medical history, labs, allergies, medications, and social history reviewed with the patient. Provided education on healthy diet and lifestyle which includes high-protein, low carbohydrate, high-fiber, and a variety of fruits and vegetables. Patient encouraged to exercise with emphasis on resistance training minimum 3 times per week to maintain muscle mass and cardio to burn fat. All patient questions answered. Patient will follow-up in 4 weeks for weight management. #Morbid obesity: Weight today 214.5 pounds, BMI 40.5. She exercises by playing volleyball and softball twice per week, she mostly focuses on home-cooked meals with protein and vegetables, discussed switching out gym eating breakfast sandwich for her protein shake or smoothie. Discussed weight loss medications. Given MASShamika, plan for Wegovy 0.25 mg weekly injections. Educated on side effects including nausea, constipation, reflux, heartburn, hair thinning. Will submit PA today. Follow-up in 4 weeks. 11/22/2024: Weight 210.4 pounds, BMI 39.8. She was started on Zepbound 2.5 mg weekly injections, has had 2 injections so far. On review of body composition scan, skeletal muscle mass decreased 0.5 pounds, fat mass decreased 4 pounds. Discussed protein, exercise, hydration goals. Plan to increase to Zepbound 5 mg weekly injections. Follow-up in 4 weeks. #Epigastric pain: Symptoms ongoing for 6 months, no dyspnea on exertion, shortness of breath, palpitations, lightheadedness, abdominal pain. She has been utilizing pantoprazole with no relief. On exam, vital stable. Regular rate and rhythm on cardiac auscultation. Tenderness to palpation over chest wall. Differential includes GERD, costochondritis, ACS. Plan for EKG. Advised patient to utilize pantoprazole daily, along with ibuprofen for 5 days to determine if symptoms improve, making MSK etiology more likely. Plan for routine labs. Advised patient to contact her PCP. Consider echocardiogram and/or stress test in the future. Patient advised to report to the ER if she develops worsening or crushing chest pain, radiation down the left arm, lightheadedness or palpitations. #MASH: Follows with PCP. Discussed exercise, diet, hydration goals. Plan for Wegovy 0.25 mg weekly injections #ANDREA: Continue nocturnal CPAP #Asthma: Well-controlled. Continue albuterol as needed. #Osteoarthritis: Discussed exercise options including walking, biking, resistance training. Patient was reassured and welcomed to the practice. We discussed that we stress a hollistic medical approach with emphasis on lifestyle modification. Patient was informed that a healthy lifestyle with exercise and good eating habits can help reduce his risk of medical complications. Patient is explained that obesity increases his risk of diabetes, cardiovascular disease, or organ damage. We spent a lot of time discussing the relationship between food, exercise, sleep, mental health and obesity. Patient was counseled on the importance EATING local, organic food when possible. Patient was educated on clean 15 and dirty dozen. I provided information about reading books called The Food Rules by Jeremy Patel and Eat Fat Get Lean by Dr Silvino Gomez. Self education is important in the journey for weight management. Patient was offered diagnostic testing/ SECA scale. We want to measure visceral adiposity, advanced body composition, adverse lipids, fatty acid balance, risk for heart disease and atherosclerosis, markers of inflammation and genetic susceptibility. Patient was counseled on weight management and was advised to lose weight using A. Meal Replacement Products Patient was educated on the replacement products called optifast. This is a good way of taking fixed amount of calories. It has been shown in studies to be ineffective weight management tool. This however has to be coupled with lifestyle intervention as well as laboratory data and EKG monitoring. It is impossible to know how a person will tolerate complete meal replacement. The side effects of meal replacement and weight loss could include syncopal attacks, dizziness, gallstones, potential cholecystectomy, possible heart attack and even . The benefits of meal replacement would be potential weight loss but no guarantees can be made. Meal replacement products are not covered by insurance. Once the patient has bought these products we cannot return them B. Lifestyle management which includes several strategies as below 1. Eat a low carbohydrate good fat good protein diet. Eliminate refined carbohydrates from the diet. Limit sugared beverages. Eat local organic when possible. Cook your own meals. Read food labels. Focus on healthy snacks. Portion control and food with low glycemic index 2. Exercise regularly. Try to get at least 6000 steps a day. Use a predominant to track activity level. Consider using apps like 7 minute excercise, my[employer]oga Energypal, lose it, stick as needed for self-monitoring and weight management. Consider group exercises. Consider hiring a net trainer. Regular exercise is velazquez to sustainable health and prevents as a buffer against weight regain 3. Sleep is most important for healing. Try to sleep at least 6-8 hours a night. A good quality sleep needs a sleep ritual with ideal room temperature of around 68. It might help to take a shower and have no electronics in the room and sleep in a very dark room without artificial light. Start sleep routine and get up early in the morning and go to bed on time. 4. Make a social connection. Surround yourself with positive people with positive energy. Connect with friends and family. 5. Get into the habit of meditating and mindfulness while doing everything. 6. Go outside and connect with nature. C. Prescription medications Patient was educated on the use of prescription medications for medical weight loss. This is a growing list and includes phentermine, Topamax,Qsymia, contrave, belviq and saxenda, wegovy etc. All prescription medications could have side effects including but not limited to kidney stones, seizure disorder cardiac arrhythmias heart attack pancreatitis, GI effects, Etc. Patient was encouraged to read the prescription insert and have coaching with their pharmacist and make an informed decision about taking medication and know that these medications are being prescribed with good intentions and we do not know how a patient would react to her medication. Some medications are FDA approved for weight loss and there is also off label use depending on patient's inability to afford medications in an attempt to lose weight D. Behavioral counseling was done to establish a relationship between food and an mood. Patient was provided information about local counseling and psychiatry and Dr Marin at [facility]. We would like to cover regular topics and build on low glycemic eating exercise mindful eating, using yoga and meditation along with deep breathing and connecting with friends and family. E. MASS PAT reviewed, Patient's current medications were reviewed and opinion was given on medication that can cause weight gain and can be substituted F. Patient was assessed for risk with obesity including and not limiting to atherosclerosis heart disease stroke kidney disease, restrictive lung disease, irritable bowel syndrome and overall mortality. Risk of developing prediabetes diabetes and metabolic syndrome was discussed G. Therapeutic plan: We have decided to make therapeutic plan which would include choosing wisely on calories restricting portion getting active, tracking weight, getting good quality sleep and working on time management H. Patient will follow up in 4 weeks for weight management Total time spent today was 60 minutes of which greater than 50% was spent on coordinating and counseling Case discussed with collaborating physician Helder Pagan who reviewed the assessment and plan. Chart, medications, labs, vital signs reviewed. Dictation was accomplished with the use of [employer] voice recognition software, prone to medical misidentifications and grammatical errors. This is unintentional and the practitioner does try to identify and correct these, but some could still be present. Please do not hesitate to contact practitioner for clarification. All questions answered to patients satisfaction. Patient verbalized understanding of diagnosis and treatments explained. To call sooner prior to next visit it any questions/concerns arise. 10/16/2024 Encounter for examination of blood pressure without abnormal findings (ICD-10 - Z01.30) Sue is a 54-year-old female with past medical history of obesity, arthritis, fatty liver, and asthma who management consult. Medical history, labs, allergies, medications, and social history reviewed with the patient. Provided education on healthy diet and lifestyle which includes high-protein, low carbohydrate, high-fiber, and a variety of fruits and vegetables. Patient encouraged to exercise with emphasis on resistance training minimum 3 times per week to maintain muscle mass and cardio to burn fat. All patient questions answered. Patient will follow-up in 4 weeks for weight management. #Morbid obesity: Weight today 214.5 pounds, BMI 40.5. She exercises by playing volleyball and softball twice per week, she mostly focuses on home-cooked meals with protein and vegetables, discussed switching out gym eating breakfast sandwich for her protein shake or smoothie. Discussed weight loss medications. Given MASH, plan for Wegovy 0.25 mg weekly injections. Educated on side effects including nausea, constipation, reflux, heartburn, hair thinning. Will submit PA today. Follow-up in 4 weeks. #MASH: Follows with PCP. Discussed exercise, diet, hydration goals. Plan for Wegovy 0.25 mg weekly injections #ANDREA: Continue nocturnal CPAP #Asthma: Well-controlled. Continue albuterol as needed. #Osteoarthritis: Discussed exercise options including walking, biking, resistance training. Patient was reassured and welcomed to the practice. We discussed that we stress a hollistic medical approach with emphasis on lifestyle modification. Patient was informed that a healthy lifestyle with exercise and good eating habits can help reduce his risk of medical complications. Patient is explained that obesity increases his risk of diabetes, cardiovascular disease, or organ damage. We spent a lot of time discussing the relationship between food, exercise, sleep, mental health and obesity. Patient was counseled on the importance EATING local, organic food when possible. Patient was educated on clean 15 and dirty dozen. I provided information about reading books called The Food Rules by Jeremy Patel and Eat Fat Get Lean by Dr Silvino Gomez. Self education is important in the journey for weight management. Patient was offered diagnostic testing/ SECA scale. We want to measure visceral adiposity, advanced body composition, adverse lipids, fatty acid balance, risk for heart disease and atherosclerosis, markers of inflammation and genetic susceptibility. Patient was counseled on weight management and was advised to lose weight using A. Meal Replacement Products Patient was educated on the replacement products called optifast. This is a good way of taking fixed amount of calories. It has been shown in studies to be ineffective weight management tool. This however has to be coupled with lifestyle intervention as well as laboratory data and EKG monitoring. It is impossible to know how a person will tolerate complete meal replacement. The side effects of meal replacement and weight loss could include syncopal attacks, dizziness, gallstones, potential cholecystectomy, possible heart attack and even . The benefits of meal replacement would be potential weight loss but no guarantees can be made. Meal replacement products are not covered by insurance. Once the patient has bought these products we cannot return them B. Lifestyle management which includes several strategies as below 1. Eat a low carbohydrate good fat good protein diet. Eliminate refined carbohydrates from the diet. Limit sugared beverages. Eat local organic when possible. Cook your own meals. Read food labels. Focus on healthy snacks. Portion control and food with low glycemic index 2. Exercise regularly. Try to get at least 6000 steps a day. Use a predominant to track activity level. Consider using apps like 7 minute excercise, myTioga Energypal, lose it, stick as needed for self-monitoring and weight management. Consider group exercises. Consider hiring a net trainer. Regular exercise is velazquez to sustainable health and prevents as a buffer against weight regain 3. Sleep is most important for healing. Try to sleep at least 6-8 hours a night. A good quality sleep needs a sleep ritual with ideal room temperature of around 68. It might help to take a shower and have no electronics in the room and sleep in a very dark room without artificial light. Start sleep routine and get up early in the morning and go to bed on time. 4. Make a social connection. Surround yourself with positive people with positive energy. Connect with friends and family. 5. Get into the habit of meditating and mindfulness while doing everything. 6. Go outside and connect with nature. C. Prescription medications Patient was educated on the use of prescription medications for medical weight loss. This is a growing list and includes phentermine, Topamax,Qsymia, contrave, belviq and saxenda, wegovy etc. All prescription medications could have side effects including but not limited to kidney stones, seizure disorder cardiac arrhythmias heart attack pancreatitis, GI effects, Etc. Patient was encouraged to read the prescription insert and have coaching with their pharmacist and make an informed decision about taking medication and know that these medications are being prescribed with good intentions and we do not know how a patient would react to her medication. Some medications are FDA approved for weight loss and there is also off label use depending on patient's inability to afford medications in an attempt to lose weight D. Behavioral counseling was done to establish a relationship between food and an mood. Patient was provided information about local counseling and psychiatry and Dr Marin at [facility]. We would like to cover regular topics and build on low glycemic eating exercise mindful eating, using yoga and meditation along with deep breathing and connecting with friends and family. E. MASS PAT reviewed, Patient's current medications were reviewed and opinion was given on medication that can cause weight gain and can be substituted F. Patient was assessed for risk with obesity including and not limiting to atherosclerosis heart disease stroke kidney disease, restrictive lung disease, irritable bowel syndrome and overall mortality. Risk of developing prediabetes diabetes and metabolic syndrome was discussed G. Therapeutic plan: We have decided to make therapeutic plan which would include choosing wisely on calories restricting portion getting active, tracking weight, getting good quality sleep and working on time management H. Patient will follow up in 4 weeks for weight management Total time spent today was 60 minutes of which greater than 50% was spent on coordinating and counseling Case discussed with collaborating physician Helder Pagan who reviewed the assessment and plan. Chart, medications, labs, vital signs reviewed. Dictation was accomplished with the use of [employer] voice recognition software, prone to medical misidentifications and grammatical errors. This is unintentional and the practitioner does try to identify and correct these, but some could still be present. Please do not hesitate to contact practitioner for clarification. All questions answered to patients satisfaction. Patient verbalized understanding of diagnosis and treatments explained. To call sooner prior to next visit it any questions/concerns arise. 11/22/2024 Epigastric pain (ICD-10 - R10.13) Sue is a 54-year-old female with past medical history of obesity, arthritis, fatty liver, and asthma who management consult. Medical history, labs, allergies, medications, and social history reviewed with the patient. Provided education on healthy diet and lifestyle which includes high-protein, low carbohydrate, high-fiber, and a variety of fruits and vegetables. Patient encouraged to exercise with emphasis on resistance training minimum 3 times per week to maintain muscle mass and cardio to burn fat. All patient questions answered. Patient will follow-up in 4 weeks for weight management. #Morbid obesity: Weight today 214.5 pounds, BMI 40.5. She exercises by playing volleyball and softball twice per week, she mostly focuses on home-cooked meals with protein and vegetables, discussed switching out gym eating breakfast sandwich for her protein shake or smoothie. Discussed weight loss medications. Given MASH, plan for Wegovy 0.25 mg weekly injections. Educated on side effects including nausea, constipation, reflux, heartburn, hair thinning. Will submit PA today. Follow-up in 4 weeks. 11/22/2024: Weight 210.4 pounds, BMI 39.8. She was started on Zepbound 2.5 mg weekly injections, has had 2 injections so far. On review of body composition scan, skeletal muscle mass decreased 0.5 pounds, fat mass decreased 4 pounds. Discussed protein, exercise, hydration goals. Plan to increase to Zepbound 5 mg weekly injections. Follow-up in 4 weeks. #Epigastric pain: Symptoms ongoing for 6 months, no dyspnea on exertion, shortness of breath, palpitations, lightheadedness, abdominal pain. She has been utilizing pantoprazole with no relief. On exam, vital stable. Regular rate and rhythm on cardiac auscultation. Tenderness to palpation over chest wall. Differential includes GERD, costochondritis, ACS. Plan for EKG. Advised patient to utilize pantoprazole daily, along with ibuprofen for 5 days to determine if symptoms improve, making MSK etiology more likely. Plan for routine labs. Advised patient to contact her PCP. Consider echocardiogram and/or stress test in the future. Patient advised to report to the ER if she develops worsening or crushing chest pain, radiation down the left arm, lightheadedness or palpitations. #MASH: Follows with PCP. Discussed exercise, diet, hydration goals. Plan for Wegovy 0.25 mg weekly injections #ANDREA: Continue nocturnal CPAP #Asthma: Well-controlled. Continue albuterol as needed. #Osteoarthritis: Discussed exercise options including walking, biking, resistance training. Patient was reassured and welcomed to the practice. We discussed that we stress a hollistic medical approach with emphasis on lifestyle modification. Patient was informed that a healthy lifestyle with exercise and good eating habits can help reduce his risk of medical complications. Patient is explained that obesity increases his risk of diabetes, cardiovascular disease, or organ damage. We spent a lot of time discussing the relationship between food, exercise, sleep, mental health and obesity. Patient was counseled on the importance EATING local, organic food when possible. Patient was educated on clean 15 and dirty dozen. I provided information about reading books called The Food Rules by Jeremy Patel and Eat Fat Get Lean by Dr Silvino Gomez. Self education is important in the journey for weight management. Patient was offered diagnostic testing/ SECA scale. We want to measure visceral adiposity, advanced body composition, adverse lipids, fatty acid balance, risk for heart disease and atherosclerosis, markers of inflammation and genetic susceptibility. Patient was counseled on weight management and was advised to lose weight using A. Meal Replacement Products Patient was educated on the replacement products called optifast. This is a good way of taking fixed amount of calories. It has been shown in studies to be ineffective weight management tool. This however has to be coupled with lifestyle intervention as well as laboratory data and EKG monitoring. It is impossible to know how a person will tolerate complete meal replacement. The side effects of meal replacement and weight loss could include syncopal attacks, dizziness, gallstones, potential cholecystectomy, possible heart attack and even . The benefits of meal replacement would be potential weight loss but no guarantees can be made. Meal replacement products are not covered by insurance. Once the patient has bought these products we cannot return them B. Lifestyle management which includes several strategies as below 1. Eat a low carbohydrate good fat good protein diet. Eliminate refined carbohydrates from the diet. Limit sugared beverages. Eat local organic when possible. Cook your own meals. Read food labels. Focus on healthy snacks. Portion control and food with low glycemic index 2. Exercise regularly. Try to get at least 6000 steps a day. Use a predominant to track activity level. Consider using apps like 7 minute excercise, myfitnesspal, lose it, stick as needed for self-monitoring and weight management. Consider group exercises. Consider hiring a net trainer. Regular exercise is velazquez to sustainable health and prevents as a buffer against weight regain 3. Sleep is most important for healing. Try to sleep at least 6-8 hours a night. A good quality sleep needs a sleep ritual with ideal room temperature of around 68. It might help to take a shower and have no electronics in the room and sleep in a very dark room without artificial light. Start sleep routine and get up early in the morning and go to bed on time. 4. Make a social connection. Surround yourself with positive people with positive energy. Connect with friends and family. 5. Get into the habit of meditating and mindfulness while doing everything. 6. Go outside and connect with nature. C. Prescription medications Patient was educated on the use of prescription medications for medical weight loss. This is a growing list and includes phentermine, Topamax,Qsymia, contrave, belviq and saxenda, wegovy etc. All prescription medications could have side effects including but not limited to kidney stones, seizure disorder cardiac arrhythmias heart attack pancreatitis, GI effects, Etc. Patient was encouraged to read the prescription insert and have coaching with their pharmacist and make an informed decision about taking medication and know that these medications are being prescribed with good intentions and we do not know how a patient would react to her medication. Some medications are FDA approved for weight loss and there is also off label use depending on patient's inability to afford medications in an attempt to lose weight D. Behavioral counseling was done to establish a relationship between food and an mood. Patient was provided information about local counseling and psychiatry and Dr Marin at [facility]. We would like to cover regular topics and build on low glycemic eating exercise mindful eating, using yoga and meditation along with deep breathing and connecting with friends and family. E. MASS PAT reviewed, Patient's current medications were reviewed and opinion was given on medication that can cause weight gain and can be substituted F. Patient was assessed for risk with obesity including and not limiting to atherosclerosis heart disease stroke kidney disease, restrictive lung disease, irritable bowel syndrome and overall mortality. Risk of developing prediabetes diabetes and metabolic syndrome was discussed G. Therapeutic plan: We have decided to make therapeutic plan which would include choosing wisely on calories restricting portion getting active, tracking weight, getting good quality sleep and working on time management H. Patient will follow up in 4 weeks for weight management Total time spent today was 60 minutes of which greater than 50% was spent on coordinating and counseling Case discussed with collaborating physician Helder Pagan who reviewed the assessment and plan. Chart, medications, labs, vital signs reviewed. Dictation was accomplished with the use of [employer] voice recognition software, prone to medical misidentifications and grammatical errors. This is unintentional and the practitioner does try to identify and correct these, but some could still be present. Please do not hesitate to contact practitioner for clarification. All questions answered to patients satisfaction. Patient verbalized understanding of diagnosis and treatments explained. To call sooner prior to next visit it any questions/concerns arise. 12/26/2024 Sue is a 54-year-old female with past medical history of obesity, arthritis, fatty liver, and asthma who management follow-up. Medical history, labs, allergies, medications, and social history reviewed with the patient. Provided education on healthy diet and lifestyle which includes high-protein, low carbohydrate, high-fiber, and a variety of fruits and vegetables. Patient encouraged to exercise with emphasis on resistance training minimum 3 times per week to maintain muscle mass and cardio to burn fat. All patient questions answered. Patient will follow-up in 4 weeks for weight management. #Morbid obesity: 10/16/2024: Weight today 214.5 pounds, BMI 40.5. 11/22/2024: Weight 210.4 pounds, BMI 39.8. Skeletal muscle mass decreased 0.5 pounds, fat mass decreased 4 pounds. #Epigastric pain: Symptoms ongoing for 6 months, no dyspnea on exertion, shortness of breath, palpitations, lightheadedness, abdominal pain. She has been utilizing pantoprazole with no relief. On exam, vital stable. Regular rate and rhythm on cardiac auscultation. Tenderness to palpation over chest wall. Differential includes GERD, costochondritis, ACS. Plan for EKG. Advised patient to utilize pantoprazole daily, along with ibuprofen for 5 days to determine if symptoms improve, making MSK etiology more likely. Plan for routine labs. Advised patient to contact her PCP. Consider echocardiogram and/or stress test in the future. Patient advised to report to the ER if she develops worsening or crushing chest pain, radiation down the left arm, lightheadedness or palpitations. #MASH: Follows with PCP. Discussed exercise, diet, hydration goals. LFTS WNL. #ANDREA: Continue nocturnal CPAP #Asthma: Well-controlled. No wheezing on exam. Continue albuterol as needed. #Osteoarthritis: Discussed exercise options including walking, biking, resistance training. Total time spent today was 30 minutes of which greater than 50% was spent on coordinating and counseling Case discussed with collaborating physician Helder Pagan who reviewed the assessment and plan. Chart, medications, labs, vital signs reviewed. Dictation was accomplished with the use of [employer] voice recognition software, prone to medical misidentifications and grammatical errors. This is unintentional and the practitioner does try to identify and correct these, but some could still be present. Please do not hesitate to contact practitioner for clarification. All questions answered to patients satisfaction. Patient verbalized understanding of diagnosis and treatments explained. To call sooner prior to next visit it any questions/concerns arise. Plan Of Treatment Pending Test Test Name Order Date EKG 11/22/2024 VITAMIN B12 11/22/2024 LIPID PANEL, STANDARD 11/22/2024 COMPREHENSIVE METABOLIC PANEL 11/22/2024 CBC (INCLUDES DIFF/PLT) 11/22/2024 URINALYSIS, COMPLETE 11/22/2024 HEMOGLOBIN A1c 11/22/2024 TSH 11/22/2024 VITAMIN D,25-OH,TOTAL,IA 11/22/2024 Next Appt Details Provider Name:Moon hemphill, 12/26/2024 03:30:00 PM, [address] [place] [address], [facility], [place], [id number], Insurance Providers Payer Name Payer Address Payer Phone Subscriber Number Group Number Insured Name Patient Relationship to Insured Coverage Start Date Coverage End Date [facility] [address] [place] [address] [phone] [id number] SUE ALVAREZ Self - patient is the insured 5 Medical (General) History Medical History History ICD Code anxiety depression seasonal allergies Fatty liver disease, nonalcoholic K76.0 GERD without esophagitis K21.9 ANDREA on CPAP G47.33 Osteoarthritis M19.90 Asthma J45.909 Surgical History Surgery Date(Month/Year) R knee total replacements 04/23/2020 L knee total replacement 01/06/2021
== END 2024-12-26 10:57 | disposition home or self-care (01) ==
LOC: HO.NEURO 10:56
DX: R20.0 Anesthesia of skin (principal); R20.2 Paresthesia of skin
CPT/HCPCS: 95886; 95909

== ENCOUNTER → 2024-12-26 10:59 | Outpatient (BNV) | payer BC, SELFPAY | PROVIDERS: Visit Provider Physical Medicine & Rehabilitation | DX: G56.11 Other lesions of median nerve, right upper limb (principal) | CPT/HCPCS: 95886; 95909 ==

== ENCOUNTER 2025-01-30 10:44 | Outpatient (AMB) | payer BC, SELFPAY ==
[2025-01-30 10:50] VITALS: BMI 38.8
--- NOTE | 2025-01-30 10:50 | MHC.OFFVIS ---
Vital Signs 01/30/25 10:50 Height 5 ft 2 in Weight 212 lb BMI 38.8 Intake Visit Reasons: OV-EMG review RT hand Intake Note: Sue is a 54 year old right hand dominant female who presents today for an EMG Review of her Right Hand. At her last visit, she was also evaluated for Right Ring Finger Trigger Finger. Patient complains of numbness of the wrist as well as all through the fingers . She has trouble sleeping, grabbing objects, opening and closing jars and lids. She describes most of her symptoms as daily and constant. She also reports her right ring trigger finger has been worsening. She reports previous fractures to the right hand, when she was a teenager. IMPRESSION 12/26/24: 1. This is an abnormal study. 2. There is electrodiagnostic evidence for right moderate-severe median neuropathy at the wrist, consistent with carpal tunnel syndrome. 3. There is no electrodiagnostic evidence for ulnar neuropathy, brachial plexopathy, or cervical radiculopathy. Allergies No Known Allergies Allergy (Verified 01/30/25 10:56) HPI HPI OV-EMG review RT hand: Details: Sue is a 54 year old right hand dominant female who presents today for an EMG Review of her Right Hand. At her last visit, she was also evaluated for Right Ring Finger Trigger Finger. Patient complains of numbness of the wrist as well as all through the fingers . This numbness is intermittent, daily, and worse at night. She has trouble sleeping, grabbing objects, opening and closing jars and lids. She describes most of her symptoms as daily and constant. She also reports her right ring trigger finger has been worsening. She reports previous fractures to the right hand, when she was a teenager. Patient states that she would like to move forward with surgical intervention at this time. IMPRESSION 12/26/24: 1. This is an abnormal study. 2. There is electrodiagnostic evidence for right moderate-severe median neuropathy at the wrist, consistent with carpal tunnel syndrome. 3. There is no electrodiagnostic evidence for ulnar neuropathy, brachial plexopathy, or cervical radiculopathy. [facility] Medical History (Updated 01/30/25 @ 14:41 by CLEOPATRA Colindres) PND (post-nasal drip) Arthritis History of fatty infiltration of liver History of anxiety Sleep apnea History of COVID-19 Depression Cervical spondylosis without myelopathy History of panic disorder Degenerative joint disease Hx of irritable bowel syndrome GERD (gastroesophageal reflux disease) Asthma Dyspnea due to COVID-19 Unilateral primary osteoarthritis, left knee Post-traumatic osteoarthritis of right knee Surgical History (Updated 01/30/25 @ 10:57 by HOA Cornell) History of surgery on right wrist History of left knee replacement (~01/06/21) History of arthroplasty of right knee (~06/23/20) History of esophagogastroduodenoscopy (EGD) H/O colonoscopy Hx of arthroscopic knee surgery Hx of tonsillectomy History of lumbar laminectomy History of arthroscopy of right knee Social History (Updated 01/30/25 @ 10:57 by HOA Cornell) Are you a primary customer care assistant to a significant other at home: No Do you presently have visiting nurse or other home services: No Alcohol intake: current Alcohol intake frequency: holidays/special occasions only Patient Tobacco Use Status: Never used Tobacco service: No Current occupational status: employed 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 No thenar or intrinsic wasting. Good APB muscle firing and good finger cross. Vascular: Capillary refill brisk. ROM: Patient can make a fist and extend all their digits. There is visible and palpable locking and catching of the right ring finger in a flexed position Skin: No lacerations or abrasions noted. General: No ecchymosis. No erythema or evidence of infection. Assessment & Plan Assessment & Plan (1) Carpal tunnel syndrome, right: Code(s): G56.01 - Carpal tunnel syndrome, right upper limb Category: Medical (2) Trigger finger, right ring finger: Code(s): M65.341 - Trigger finger, right ring finger Category: Medical Plan 1. Right carpal tunnel syndrome 2. Right ring finger trigger finger Numbness and tingling intermittent, daily, worse at night I educated the patient about the condition. I discussed both operative and nonoperative treatment options. The patient would like to proceed with surgery. The risks and benefits of operative treatment were discussed with the patient and the patient wishes to proceed with surgery. These risks include, but are not limited to, risk of damage to blood vessels, nerves, tendons, infection, recurrence, incomplete relief of preoperative symptoms, persistent pain, possible need for further surgery, and the risks associated with regional blocks and/or anesthesia. Plan is to take the patient to the operating room at some point in the next few weeks for the following procedures: 1. Right carpal tunnel release under local 2. Right ring finger trigger release under local All of the preoperative paperwork including the consent was discussed today. All of the patient's questions were answered in the clinic today. The patient understands that they will be in contact with our surgical services manager to discuss scheduling their procedure. Patient denies diabetes, blood thinners, asthma, heart issues, lung issues, kidney issues, or current smoking. Coding Level of Care Code Est Pt Level 4 (08002) Diagnoses Carpal tunnel syndrome, right G56.01 Trigger finger, right ring finger M65.341
== END 2025-01-30 11:16 | disposition home or self-care (01) ==
LOC: HO.HOS 10:45
DX: G56.01 Carpal tunnel syndrome, right upper limb (principal); M65.341 Trigger finger, right ring finger
CPT/HCPCS: 99214